=== PATIENT | male | born 1945 | race Caucasian/White ===

== ENCOUNTER 2016-08-24 16:04 | Emergency (ER) | payer OTHER ==
[~2016-08-24] VITALS: Ht 182.9 cm; Wt 79.0 kg
[~2016-08-24 16:04] MED LIST: ATOR10TA88 PO; GLIP1TAB85 PO; LISI20TA3 PO
[2016-08-24 16:11] VITALS: TEMP 36.6; Ht 182.9 cm; Wt 79.0 kg
--- NOTE | 2016-08-24 16:24 | EMERGENCY ROOM VISIT NOTE ---
History Report prepared by Kirill: Jose Daniel Venegas Under the Supervision of: Dr. Vikas Bernstein M.D. First contact with patient: 16:15 Chief Complaint: REFERRED BY DOCTOR Stated Complaint: HIGH POTASSIUM History of Present Illness The patient is a 70 year old male who presents to the Emergency Room after being referred for high potassium prior to arrival. The patient was getting blood-work for diabetes when his labs showed his potassium was 6. The patient denies any history of high potassium. He notes that right now he feels fine. The last time his sugar was checked, the patient notes that it was high. The patient also notes a bump on his chest that has some drainage. He had this area drained before, however, it came back. He denies nausea, vomiting, fevers, diarrhea, leg swelling, or any other medical complaints at this time. Source of History: patient Onset: prior to arrival Position: other (global) Associated Symptoms: No diarrhea, No fevers, No nausea, No vomiting Note: Associated symptoms: high sugar, bump with drainage on chest Denies: leg swelling Review of Systems See HPI for pertinent positives & negatives. A total of 10 systems reviewed and were otherwise negative. Past Medical & Surgical Medical Problems: (1) Benign hypertension (2) Cellulitis of leg (3) Diabetes mellitus type 2 Family History Diabetes mellitus Social History Smoking Status: Never Smoker Alcohol Use: none Drug Use: none Marital Status: Housing Status: lives alone Occupation Status: retired Current/Historical Medications Scheduled Aspirin Enteric Coated (Ecotrin Or Generic), 81 MG PO DAILY Atorvastatin (Lipitor), 10 MG PO DAILY Cephalexin Monohydrate (Keflex), 500 MG PO TID Gabapentin (Neurontin), 100 MG PO TID Glipizide Xl (Glucotrol Xl), 10 MG PO QAM Lisinopril (Prinivil), 20 MG PO DAILY Sulfamethoxazole-Trimethoprim (Bactrim Ds 800MG/160MG), 1 TAB PO BID Allergies Coded Allergies: No Known Allergies (Unverified , 08/24/16) Physical Exam Vital Signs Date Time Temp Pulse Resp B/P Pulse Ox O2 Delivery O2 Flow Rate FiO2 08/24/16 18:50 81 18 149/88 96 08/24/16 18:00 83 18 135/78 94 Room Air 08/24/16 16:11 36.6 94 20 113/68 96 Physical Exam GENERAL: Patient is chronically unwell appearing in no distress. HEENT: No acute trauma, normocephalic atraumatic, mucous membranes moist, no nasal congestion. Cloudy right cornea, reactive left pupil. NECK: No stridor, no adenopathy, no meningismus, trachea is midline. LUNGS: No dyspnea. Clear to auscultation and equal bilaterally. No wheeze, no rhonchi. CHEST: 2 cm draining cyst in right mid chest with surrounding erythema. HEART: Regular rate and rhythm. No murmurs, rubs, gallops appreciated. ABDOMEN: Soft, nontender, bowel sounds positive, no masses appreciated, no peritonitis. BACK: No midline tenderness, no CVA tenderness EXTREMITIES: Normal motion all extremities, no cyanosis, no edema. Decreased sensation in feet, states chronic. NEUROLOGIC: Alert and oriented, no acute motor or sensory deficits, no focal weakness, cranial nerves grossly intact. SKIN: No rash, no jaundice, no diaphoresis. Medical Decision & Procedures Laboratory Results Test 08/24/16 16:58 Bedside Hemoglobin 12.2 g/dl (14.0-18.0) Bedside Hematocrit 36 % (42-52) Bedside Sodium 140 mEq/L (135-144) Bedside Potassium 5.3 mEq/L (3.3-5.0) Bedside Chloride 104 mEq/L (101-112) Bedside Total CO2 24 mEq/l (24-31) Anion Gap 18.0 mmol/L (16-25) Bedside Blood Urea Nitrogen 30 mg/dl (7-18) Bedside Creatinine 1.6 mg/dl (0.6-1.3) Bedside Glucose (other) 164 mg/dl (70-99) Bedside Ionized Calcium (Maninder) 1.19 mmol/l (1.12-1.32) Laboratory results as reviewed by me. Medications Administered Medications (Trade) Dose Ordered Sig/Adlofo Route Start Time Stop Time Status Last Admin Dose Admin Cephalexin Monohydrate (Keflex Cap) 500 mg NOW ONCE PO 08/24/16 18:15 08/24/16 18:16 DC 08/24/16 18:32 500 MG ED Course 1620: The patient was evaluated in room C4. A complete history and physical exam was performed. 1630: Ordered Lidocaine/ Epinephrine 20 ml INFIL. 1727: At this time, I reevaluated the patient and he feels good. He agrees to recheck his potassium levels with his PCP in a few days. He is waiting to get his chest cyst drained and then he is ready to go home. 1801: At this time, Madi Awan PA-C - Emergency Medicine [place] performed an IND procedure on the patient. See his note for details. 1814: Ordered Cephalexin Monohydrate 500 mg PO. 1829: Reevaluated the patient. Discussed results and discharge instructions: He verbalized understanding and agreement. The patient is ready for discharge. Medical Decision Differential: Sepsis, Infectious (UTI/Pneumonia/Meningitis/etc), Metabolic/ Electrolyte Abnormality, Cardiac, Hepatic, Endocrine, Toxicologic, Neurologic, amongst other pathologies entertained. 70 yr old male arrives for evaluation of elevated K at outpatient lab. Bedside iStat has K of 5.3. He has no symptoms hyperK and Cr OK. I suspect that there is hemolysis going one. Patient feels well and wishes to go home. Seems reasonable to have recheck by PCP in next few days. Did have abscess on chest which was drained and as there is mild cellulitis will start Keflex while awaiting culture. No history of MRSA. He is in no distress and feels well. Discussed symptoms requiring RTED. Impression Primary Impression: Routine lab draw Additional Impression: Cutaneous abscess of chest wall Scribe Attestation The scribe's documentation has been prepared under my direction and personally reviewed by me in its entirety. I confirm that the note above accurately reflects all work, treatment, procedures, and medical decision making performed by me. Departure Information Dispostion Home / Self-Care Prescriptions Cephalexin Monohydrate (Keflex) 500 Mg Cap 500 MG PO TID for 5 Days, #15 CAP Prov: Vikas Bernstein M.D. 08/24/16 Referrals Ely Hernandez D.O. (PCP) Forms HOME CARE DOCUMENTATION FORM, IMPORTANT VISIT INFORMATION, WORK / SCHOOL INSTRUCTIONS Patient Instructions My [facility] Additional Instructions Please contact your Primary Provider to have a repeat Potassium check in the next few days. You potassium was OK today but you must have it rechecked. Return if chest pain, passing out, weakness or other concerns. Monitor wound for worsening infection. Return if fevers, redness, elevated blood sugars. Problem Qualifiers
[2016-08-24] MEDS ORDERED: LIDOCAINE/EPINEPHRINE 1% 20 ML VIAL INFIL ONE (16:30)
[2016-08-24] MEDS ORDERED: ASPI81TA21 PO (16:30)
--- NOTE | 2016-08-24 16:33 | EMERGENCY ROOM VISIT NOTE ---
ED Visit Note The patient has been thoroughly evaluated by Dr. Bernstein, who asked me to drain the potential abscess on the patient's anterior chest. Please refer to his documentation regarding the patient's visit. I examined the patient. Verbal consent was obtained to perform the procedure. After saline and Betadine cleansing and 1.5 mL of 1% buffered lidocaine with epinephrine anesthesia, the abscess was incised with a number 11 scalpel blade. A large amount of purulent material was released with more expressed by pressure. A swab was obtained for culture. The abscess cavity was further probed with blunt scissors and the deep pocket expressed. The area was cleaned with sterile saline and dressed with a bulky bandage. The patient tolerated the procedure well.
[2016-08-24] MEDS ORDERED: GABA-112 PO (16:37)
[2016-08-24] MEDS ORDERED: SULF800T23 PO (16:37)
[2016-08-24 17:16] LABS: ISTAT CREATININE 1.6 mg/dl (0.6-1.3); ISTAT HEMOGLOBIN 12.2 g/dl (14.0-18.0); ISTAT IONIZED CALCIUM 1.19 mmol/l (1.12-1.32)
[2016-08-24] MEDS ORDERED: CEPH500C PO (18:11)
[2016-08-24] MEDS ORDERED: CEPHALEXIN MONOHYDRATE 250 MG CAP PO ONE (18:15)
[2016-08-24 18:50] VITALS: BP 149/88; PULSE 81; O2SAT 96
[2017-02-08] MEDS ORDERED: MULT-506 PO (16:39)
[2017-02-08] MEDS ORDERED: LISI-461 PO (17:00)
== END 2016-08-24 18:51 | disposition home or self-care (01) ==
LOC: C.EDB 16:06 → C.EDC 18:51
DX: L02.213 Cutaneous abscess of chest wall (principal); L03.313 Cellulitis of chest wall; I10 Essential (primary) hypertension; E11.9 Type 2 diabetes mellitus without complications; Z83.3 Family history of diabetes mellitus; Z79.82 Long term (current) use of aspirin; Z79.899 Other long term (current) drug therapy

== ENCOUNTER 2017-03-14 12:12 | Inpatient (IN) | payer OTHER ==
[~2017-03-14] VITALS: Ht 182.9 cm; Wt 72.4 kg
[~2017-03-14 12:12] MED LIST changes: -ATROPINE SULFATE 0.1 MG/ML 5ML SYR IV PRN; -EpHEDrine SULFATE INJ 50 MG/ML AMP IV PRN; -EpINEphrine HCL INJ 1 MG/ML 5ML SYRINGE ONE; -EpINEphrine INJ 1MG/ML AMP 1 MG/ML AMP ONE; -FLM4 PO; -INSDGIPEN SC; -LACTATED RINGER'S 1000ML 500 ML IV SCH; -LIDOCAINE 3.5% OPH GEL PER APPLICATION CHARGE OPR SCH; -LIDOCAINE 4% OP SOLN DROP CHARGE OPR SCH; -LIDOCAINE HCL 1% MPF 2 ML VIAL ONE; -LISI-725 PO; -MIDAZOLAM HCL 1 MG/ML 2ML VIAL ONE; -POVIDONE-IODINE OP SOLN 30 ML BTL ONE; -PROPARACAINE 0.5% OP SOLN PER DROP CHARGE OPR SCH; -PRS5 PO
[2017-03-14] MEDS ORDERED: SODIUM CHLORIDE 0.9% 1000ML 1,000 ML IV STA (12:36)
[2017-03-14 14:04] LABS: BASO % 0.2 %; BASO ABS # 0.02 K/uL (0-0.2); COMPLETE YES; EOS % 0.6 %; HEMATOCRIT 33.1 % (42-52); IG% 0.2 %; LYMPH % 16.1 %; LYMPH ABS # 2.11 K/uL (1.2-3.4); MEAN CELL VOLUME 87.3 fL (80-100); MEAN CORPUSCULAR HEMOGLOBIN 28.8 pg (25-34); MEAN CORPUSCULAR HGB CONC 32.9 g/dl (32-36); MEAN PLATELET VOLUME 10.8 fL (7.4-10.4); MONO % 4.7 %; NEUT % 78.2 %; PLATELET COUNT 196 K/uL (130-400); RED BLOOD COUNT 3.79 M/uL (4.7-6.1); WHITE BLOOD COUNT 13.08 K/uL (4.8-10.8)
[2017-03-14] MEDS ORDERED: NovoLIN-R INSULIN PER UNIT CHARGE SC STA (14:07)
[2017-03-14 14:10] LABS: VEN BLD GAS O2 SATURATION 60.5 %; VEN BLOOD GAS BASE EXCESS 0.1 mEq/L
[2017-03-14 14:33] LABS: BUN/CREATININE RATIO 18.6 (10-20); CALCIUM 9.1 mg/dl (8.5-10.1)
[2017-03-14 14:51] LABS: BETA-HYDROXYBUTYRATE 4.08 mg/dL (0.2-2.81)
[2017-03-14] MEDS ORDERED: INSULIN ASPART 100 UNITS/ML 3 ML PEN SC SCH ×2 (16:00→18:36)
[2017-03-14] MEDS ORDERED: PHARMACY GLYCEMIC MGMT CONSULT PRN (16:00)
[2017-03-14] MEDS ORDERED: INSULIN IV INFUSION PROTOCOL STA (16:07)
[2017-03-14] MEDS ORDERED: ACETAMINOPHEN 325 MG TAB PO PRN (16:15)
[2017-03-14] MEDS ORDERED: PENDING NSS+20mEq KCL IVF SCH (16:15)
[2017-03-14] MEDS ORDERED: MODERATE STRESS LEVEL ONE (16:15)
[2017-03-14] MEDS ORDERED: INSULIN PROTOCOL GOAL RANGE ONE (16:15)
[2017-03-14] MEDS ORDERED: ONDANSETRON INJ 2 MG/ML 2 ML VIAL IV PRN (16:15)
[2017-03-14] MEDS ORDERED: LISI-725 PO (16:17)
[2017-03-14] MEDS ORDERED: GLUCOSE 10 TABS/TUBE PO PRN (16:30)
[2017-03-14] MEDS ORDERED: DEXTROSE 50% 50 ML SYR IV PRN (16:30)
[2017-03-14] MEDS ORDERED: GLUCOSE 40% GEL 15 GM TUBE PO PRN (16:30)
[2017-03-14] MEDS ORDERED: INSULIN REGULAR 250 UNITS in SODIUM CHLORIDE 0.9% 250ML 250 ML IV SCH (16:30)
[2017-03-14] MEDS ORDERED: GLUCAGON FOR INJ 1 MG VIAL SQ PRN (16:30)
[2017-03-14] MEDS ORDERED: INSULIN HUMAN REGULAR IV BOLUS 2 UNIT in SYRINGE 0 ML IV SCH (16:30)
[2017-03-14 16:33] LABS: URINE APPEARANCE CLEAR (CLEAR); URINE BILIRUBIN NEG (NEG); URINE COLOR YELLOW; URINE NITRITE NEG (NEG); URINE SPECIFIC GRAVITY 1.034 (1.000-1.030); UROBILINOGEN NEG (NEG); ZZUR CULT IF INDIC CLEAN CATCH NO
[2017-03-14 16:34] LABS: MANUAL MICROSCOPIC REQUIRED? NO; REVIEW REQ? NO
[2017-03-14 16:50] LABS: MAGNESIUM 2.6 mg/dl (1.8-2.4); PHOSPHORUS 3.6 mg/dl (2.5-4.9)
--- NOTE | 2017-03-14 16:55 | DIAGNOSTIC IMAGING REPORT ---
CHEST 2 VIEWS ROUTINE CLINICAL HISTORY: cough, hypoxia dyspnea COMPARISON STUDY: 04/03/2013 FINDINGS: Mild chronic interstitial prominence. No focal infiltrate. Diaphragms smooth. Calcific angles are sharp. No evidence for cardiac enlargement. IMPRESSION: Mild chronic change. No acute process. The above report was generated using voice recognition software. It may contain grammatical, syntax or spelling errors. Electronically signed by: Taz Rios M.D. 03/14/2017 4:54 PM Dictated Date/Time: 03/14/2017 4:53 PM
--- NOTE | 2017-03-14 17:09 | History and Physical ---
History & Physical Date & Time of Service: Mar 14, 2017 at 16:19 Chief Complaint: hyperglycemia Primary Care Physician: Ely Hernandez D.O. History of Present Illness Source: patient, clinic records This is a 71 year old male with PMH of DM type 2, HTN, dyslipidemia, CKD stage III, and other problems listed below who was sent to the ED from [facility] for hyperglycemia. BSG was in 500s CONE FORMER at [facility], where he was supposed to have eye biopsy. Pt has not checked home BSG for several months. Patient was living alone, but has been staying with a friend for past 3 days. Has not taken glipizide since 3 days ago as he left it at home. Friend at bedside states he was eating (indiscretion with cookies, candy) at her home up until yesterday. Did not eat/ drink today due to being NPO for procedure. Pt reports nonproductive cough with nasal congestion and rhinorrhea x 1 week. Pt has been unable to void today- last voided yesterday evening. Ambulates with a cane. He fell out of bed overnight- denies any injury, head trauma, LOC. Chronic bilateral decreased vision is unchanged. Denies recent fever or chills. Denies headache, sinus pain, ear ache, sore throat, tooth ache, chest pain, SOB , abdominal pain, N/V/D, dysuria, frequency, rash, open wound. The friend he is staying with has been ill with fever, vomiting, diarrhea. Pt's friend has concern about patient's ability to care for himself, and she is unable to care for him upon discharge. Patient's blood sugar was in 500s in ED. Received 10 units of regular insulin SC and BSG 1 hour later was 490. Per ROLLER MAKER, patient was placed on oxygen 2 liters NC while she was on break, then when she removed the O2, patient was hypoxic to high 80's. Now saturating well on 2 liters NC. No home O2 use. Denies hx of lung disease. Past Medical/Surgical History Medical Problems: (1) Benign hypertension Status: Chronic (2) Cellulitis of leg Status: Resolved (3) CKD (chronic kidney disease), stage III Status: Chronic (4) Diabetes mellitus type 2 Status: Chronic (5) GERD (gastroesophageal reflux disease) Status: Chronic (6) Hyperlipidemia Status: Chronic Surgical Problems: (1) H/O skin graft Status: Chronic (2) S/P tonsillectomy Status: Chronic Family History Diabetes mellitus SISTER Hypertension MOTHER Social History Smoking Status: Never Smoker Alcohol Use: none (denies alcohol use. of note, alcohol abuse is listed in outpatient records. ) Drug Use: none Marital Status: Housing status: lives alone (staying with friend past few days) Occupational Status: retired Immunizations History of Influenza Vaccine: Yes Influenza Vaccine Date: Mar 22, 2012 History of Tetanus Vaccine?: Unknown History of Pneumococcal: Yes Pneumococcal Date: Apr 02, 2012 History of Hepatitis B Vaccine: No Multi-Drug Resistant Organisms History of MDRO: No Allergies Coded Allergies: No Known Allergies (Unverified , 03/14/17) Home Medications Scheduled Aspirin Enteric Coated (Ecotrin Or Generic), 81 MG PO QAM Atorvastatin (Lipitor), 10 MG PO DAILY Gabapentin (Neurontin), 100 MG PO DAILY Glipizide Xl (Glucotrol Xl), 10 MG PO QAM Lisinopril (Zestril), 20 MG PO DAILY Review of Systems Ten systems reviewed and negative except as noted in HPI. Physical Exam Vital Signs Date Time Temp Pulse Resp B/P (MAP) Pulse Ox O2 Delivery O2 Flow Rate FiO2 03/14/17 16:11 89 18 134/83 98 2.0 03/14/17 14:15 95 16 133/77 90 03/14/17 12:38 81 03/14/17 12:22 36.7 90 16 134/81 99 General Appearance: WD/WN, no apparent distress Head: normocephalic, atraumatic Eyes: + pertinent finding (right cornea appears opaque, left pupil reactive to light) ENT: hearing grossly normal, TMs normal, pharynx normal, + pertinent finding ( almost edentulous, existing few teeth are in poor condition but no abscesses seen, no gum or tooth tenderness to palpation) Neck: supple, trachea midline Respiratory/Chest: lungs clear, normal breath sounds, no respiratory distress, no accessory muscle use, + pertinent finding (saturating well on 2 liters NC) Cardiovascular: regular rate, rhythm, no murmur Abdomen/GI: normal bowel sounds, non tender, soft Extremities/Musculoskelatal: no calf tenderness, no pedal edema, + pertinent finding (medial right chronic bony deformity. toenails are in poor repair, especially right 1st and 2nd digit. right 2nd toe mild erythema of entire toe, no swelling or tenderness.) Neurologic/Psych: alert, normal mood/affect, oriented x 3, + pertinent finding (sensation to light touch intact on bilateral feet) Skin: normal color, warm/dry Diagnostics Laboratory Results Results Past 24 Hours Test 03/14/17 12:23 03/14/17 13:45 03/14/17 13:53 03/14/17 15:18 Range/Units Bedside Glucose 576 491 70-99 mg/dl White Blood Count 13.08 4.8-10.8 K/uL Red Blood Count 3.79 4.7-6.1 M/uL Hemoglobin 10.9 14.0-18.0 g/dL Hematocrit 33.1 42-52 % Mean Corpuscular Volume 87.3 80-100 fL Mean Corpuscular Hemoglobin 28.8 25-34 pg Mean Corpuscular Hemoglobin Concent 32.9 32-36 g/dl Platelet Count 196 130-400 K/uL Mean Platelet Volume 10.8 7.4-10.4 fL Neutrophils (%) (Auto) 78.2 % Lymphocytes (%) (Auto) 16.1 % Monocytes (%) (Auto) 4.7 % Eosinophils (%) (Auto) 0.6 % Basophils (%) (Auto) 0.2 % Neutrophils # (Auto) 10.23 1.4-6.5 K/uL Lymphocytes # (Auto) 2.11 1.2-3.4 K/uL Monocytes # (Auto) 0.61 0.11-0.59 K/uL Eosinophils # (Auto) 0.08 0-0.5 K/uL Basophils # (Auto) 0.02 0-0.2 K/uL RDW Standard Deviation 42.5 36.4-46.3 fL RDW Coefficient of Variation 13.2 11.5-14.5 % Immature Granulocyte % (Auto) 0.2 % Immature Granulocyte # (Auto) 0.03 0.00-0.02 K/uL Venous Blood pH 7.38 7.36-7.41 Venous Blood Partial Pressure CO2 44 38.0-50.0 mmHg Venous Blood Partial Pressure O2 32 mmHg Venous Blood HCO3 25 mmol/L Venous Blood Oxygen Saturation 60.5 % Venous Blood Base Excess 0.1 mEq/L Sodium Level 133 136-145 mmol/L Potassium Level 5.0 3.5-5.1 mmol/L Chloride Level 101 98-107 mmol/L Carbon Dioxide Level 25 21-32 mmol/L Anion Gap 7.0 3-11 mmol/L Blood Urea Nitrogen 37 7-18 mg/dl Creatinine 2.00 0.60-1.40 mg/dl Est Creatinine Clear Calc Drug Dose 35.5 ml/min Estimated GFR () 37.8 Estimated GFR (Non- 32.6 BUN/Creatinine Ratio 18.6 10-20 Random Glucose 542 70-99 mg/dl Calcium Level 9.1 8.5-10.1 mg/dl Total Bilirubin 0.5 0.2-1 mg/dl Direct Bilirubin 0.2 0-0.2 mg/dl Aspartate Amino Transf (AST/SGOT) 9 15-37 U/L Alanine Aminotransferase (ALT/SGPT) 18 12-78 U/L Alkaline Phosphatase 63 45-117 U/L Total Protein 7.0 6.4-8.2 gm/dl Albumin 3.8 3.4-5.0 gm/dl Lipase 198 73-393 U/L Beta-Hydroxybutyric Acid 4.08 0.2-2.81 mg/dL Test 03/14/17 16:04 03/14/17 16:06 Range/Units EKG NSR, 84 bpm, no ST or T wave abnormality Impression Assessment and Plan HYPERGLYCEMIA In setting of DM type 2, uncontrolled per last A1c (9.6 in 08/2016) Likely secondary to medication non-compliance, dietary indiscretion, rule out infection- afebrile, +mild leukocytosis (WBC 13K) f/u CXR and UA AG normal, not in DKA Hold glipizide Start insulin drip and monitor electrolytes Consult pharmacy for glycemic control Check A1c unit educator consult, also recommend podiatry referral as outpatient HYPOXIA Was placed on O2 nasal cannula in ER, was hypoxic to high 80's upon removal by ROLLER MAKER Not on home O2- check CXR to r/o PNA given leukocytosis and c/o cough Continue supplemental O2 per protocol AXEL ON CKD STAGE III Creat is 2.0, baseline 1.2 Possibly secondary to dehydration; denies NSAID use Hold lisinopril Received 1 liter IVF's in ER- continue at 125 cc/hour Monitor renal function Avoid nephrotoxins when able URINARY RETENTION Unable to void today, bladder scan + urinary retention in ER- 1450 mL output on straight cath UA pending Bladder scan and straight cath PRN CHRONIC ANEMIA Hg is 10.9, was 11's back in 2013 Follow up as outpatient DYSLIPIDEMIA Continue statin DVT PROPHYLAXIS Heparin SQ CODE STATUS Full code per my discussion with the patient DISPOSITION Admission telemetry May need placement, lives alone, friend concerned he is unable to care for himself at home, and she is unable to care for him after discharge PT, OT, social service evaluation Follows with Dr. Ely Hernandez for primary care Patient seen in collaboration with Dr. Arevalo. Please see his addendum. VTE Prophylaxis VTE Risk Assessment Done? Y/N: Yes Risk Level: Moderate Note ATTENDING ADDENDUM Record reviewed. Patient interviewed and examined in ED. Care coordinated with Valentine Silvestre PA-C. Please refer to her documentation for patient's history. Briefly, 71 YO male with history of DM type 2, managed with glipizide. Has not take his glipizide for a few days. Had outpatient eye surgery planned for today; found to have blood sugar > 500 and was referred to ED. Pt notes blurred vision. Denies polyuria or polydipsia. EXAM: General- appears to be chronically ill, no acute distress VS- as noted HEENT- anicteric Neck- no JVD Lungs- clear Heart- RRR, II/ sys murmur at base Abdomen- + BS, soft, nontender, no masses or hepatosplenomegaly Rectal- prostate enlarged, nontender; no masses appreciated Extremities- no pretibial edema or calf tenderness; pedal pulses intact; no diabetic foot lesions Neuro- alert DATA: Random blood sugar 576. BUN 37, creat 2.0. Na 133. K 530. AG 7.0. BHG 4.08 UA 3+ glucose, otherwise negative. Other lab studies as noted. CXR reviewed- emphysematous changes, no infiltrates, effusions, CHF. EKG performed at 12:22 reviewed and demonstrated NSR at 84 / minute, no acute ST or T-wave changes.. ASSESSMENT AND PLAN: DM TYPE 2, POORLY CONTROLLED Sounds like chronic problems with glycemic management. Has not taken glipizide for past few days. Has tried metformin in the past, but apparently unable to take it. Not a candidate for insulin therapy. Started on insulin infusion in ED. Check Hgb A1C. Pharmacy consulted for glycemic management. ACUTE KIDNEY INJURY Serum creatinine 2, compared to 1.26 in 2015. Acute kidney injury could be secondary to hyperglycemia or obstructive uropathy. Hold lisinopril, then restart at reduced dose with caution if creatinine improves. Check renal US. URINARY RETENTION Patient reports that he typically only voids 1-3 times a day. Bladder scan in ED revealed bladder volume > 999 ml. Straight cath --> 1400 ml. Denies urgency, frequency, nocturia, dysuria, hematuria. Rectal exam reveals enlarged prostate. Straight cath PRN. Start tamsulosin if BP's OK. Consult Urology. Please refer to MITZY Silvestre's documentation for discussion of other issues. Cesar Arevalo MD .
--- NOTE | 2017-03-14 18:25 | EMERGENCY ROOM VISIT NOTE ---
History Report prepared by Kirill: Levy Underwood Under the Supervision of: Dr. Theo Haq D.O. 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 His blood sugar was 586 prior to arrival. The patient was supposed to have a biopsy of his right eye at the surgical center, when they noticed his blood sugar was elevated. They sent him here. He has been taking his blood sugar medication. His last bowel movement was 10 minutes ago and was normal. Pt denies headache, change in vision, fevers , chest pain, shortness of breath, nausea, vomiting, diarrhea, pain with urination, and melena. 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 Review of Systems See HPI for pertinent positives & negatives. A total of 10 systems reviewed and were otherwise negative. Past Medical & Surgical Medical Problems: (1) AXEL (acute kidney injury) (2) Benign hypertension (3) Cellulitis of leg (4) CKD (chronic kidney disease), stage III (5) Diabetes mellitus type 2 (6) GERD (gastroesophageal reflux disease) (7) Hyperlipidemia Surgical Problems: (1) H/O skin graft (2) S/P tonsillectomy Family History Diabetes mellitus Social History Smoking Status: Never Smoker Alcohol Use: none Drug Use: none Marital Status: Housing Status: lives alone Occupation Status: retired Current/Historical Medications Scheduled Aspirin Enteric Coated (Ecotrin Or Generic), 81 MG PO QAM Atorvastatin (Lipitor), 10 MG PO DAILY Gabapentin (Neurontin), 100 MG PO DAILY Glipizide Xl (Glucotrol Xl), 10 MG PO QAM Lisinopril (Zestril), 20 MG PO DAILY Allergies Coded Allergies: No Known Allergies (Unverified , 03/14/17) Physical Exam Vital Signs Date Time Temp Pulse Resp B/P (MAP) Pulse Ox O2 Delivery O2 Flow Rate FiO2 03/14/17 17:12 84 16 97/64 98 03/14/17 16:11 89 18 134/83 98 2.0 03/14/17 14:15 95 16 133/77 90 03/14/17 12:38 81 03/14/17 12:22 36.7 90 16 134/81 99 Physical Exam GENERAL: alert, sitting up in bed, chronically ill appearing, disheveled, well nourished, no distress, non-toxic EYE EXAM: Right pupil and cornea are opacified. OROPHARYNX: no exudate, no erythema, lips, buccal mucosa, and tongue normal and mucous membranes are moist NECK: supple, no nuchal rigidity, no adenopathy, non-tender LUNGS: Clear to auscultation. Normal chest wall mechanics HEART: no murmurs, S1 normal and S2 normal ABDOMEN: abdomen soft, non-tender, normo-active bowel sounds, no masses, no rebound or guarding. BACK: Back is symmetrical on inspection and there is no deformity, no midline tenderness, no CVA tenderness. SKIN: no rashes and no bruising UPPER EXTREMITIES: upper extremities are grossly normal. LOWER EXTREMITIES: No pitting edema. NEURO EXAM: Normal sensorium, cranial nerves II-XII grossly intact, normal speech, no gross weakness of arms, no gross weakness of legs. Medical Decision & Procedures Laboratory Results 03/14/17 13:45 Red Blood Count 3.79, Mean Corpuscular Volume 87.3, Mean Corpuscular Hemoglobin 28.8, Mean Corpuscular Hemoglobin Concent 32.9, Mean Platelet Volume 10.8, Neutrophils (%) (Auto) 78.2, Lymphocytes (%) (Auto) 16.1, Monocytes (%) (Auto) 4.7, Eosinophils (%) (Auto) 0.6, Basophils (%) (Auto) 0.2, Neutrophils # (Auto) 10.23, Lymphocytes # (Auto) 2.11, Monocytes # (Auto) 0.61, Eosinophils # (Auto) 0.08, Basophils # (Auto) 0.02 9/11/17 13:53 Test 03/14/17 13:45 03/14/17 13:53 03/14/17 16:06 03/14/17 17:42 White Blood Count 13.08 K/uL (4.8-10.8) Red Blood Count 3.79 M/uL (4.7-6.1) Hemoglobin 10.9 g/dL (14.0-18.0) Hematocrit 33.1 % (42-52) Mean Corpuscular Volume 87.3 fL (80-100) Mean Corpuscular Hemoglobin 28.8 pg (25-34) Mean Corpuscular Hemoglobin Concent 32.9 g/dl (32-36) Platelet Count 196 K/uL (130-400) Mean Platelet Volume 10.8 fL (7.4-10.4) Neutrophils (%) (Auto) 78.2 % Lymphocytes (%) (Auto) 16.1 % Monocytes (%) (Auto) 4.7 % Eosinophils (%) (Auto) 0.6 % Basophils (%) (Auto) 0.2 % Neutrophils # (Auto) 10.23 K/uL (1.4-6.5) Lymphocytes # (Auto) 2.11 K/uL (1.2-3.4) Monocytes # (Auto) 0.61 K/uL (0.11-0.59) Eosinophils # (Auto) 0.08 K/uL (0-0.5) Basophils # (Auto) 0.02 K/uL (0-0.2) RDW Standard Deviation 42.5 fL (36.4-46.3) RDW Coefficient of Variation 13.2 % (11.5-14.5) Immature Granulocyte % (Auto) 0.2 % Immature Granulocyte # (Auto) 0.03 K/uL (0.00-0.02) Venous Blood pH 7.38 (7.36-7.41) Venous Blood Partial Pressure CO2 44 mmHg (38.0-50.0) Venous Blood Partial Pressure O2 32 mmHg Venous Blood HCO3 25 mmol/L Venous Blood Oxygen Saturation 60.5 % Venous Blood Base Excess 0.1 mEq/L Anion Gap 7.0 mmol/L (3-11) Est Creatinine Clear Calc Drug Dose 35.5 ml/min Estimated GFR () 37.8 Estimated GFR (Non- 32.6 BUN/Creatinine Ratio 18.6 (10-20) Calcium Level 9.1 mg/dl (8.5-10.1) Phosphorus Level 3.6 mg/dl (2.5-4.9) Magnesium Level 2.6 mg/dl (1.8-2.4) Total Bilirubin 0.5 mg/dl (0.2-1) Direct Bilirubin 0.2 mg/dl (0-0.2) Aspartate Amino Transf (AST/SGOT) 9 U/L (15-37) Alanine Aminotransferase (ALT/SGPT) 18 U/L (12-78) Alkaline Phosphatase 63 U/L (45-117) Total Protein 7.0 gm/dl (6.4-8.2) Albumin 3.8 gm/dl (3.4-5.0) Lipase 198 U/L (73-393) Beta-Hydroxybutyric Acid 4.08 mg/dL (0.2-2.81) Urine Color YELLOW Urine Appearance CLEAR (CLEAR) Urine pH 5.0 (4.5-7.5) Urine Specific [place] 1.034 (1.000-1.030) Urine Protein NEG (NEG) Urine Glucose (UA) 3+ (NEG) Urine Ketones NEG (NEG) Urine Occult Blood NEG (NEG) Urine Nitrite NEG (NEG) Urine Bilirubin NEG (NEG) Urine Urobilinogen NEG (NEG) Urine Leukocyte Esterase NEG (NEG) Bedside Glucose 224 mg/dl (70-99) Laboratory results per my review. Medications Administered Medications (Trade) Dose Ordered Sig/Adolfo Route Start Time Stop Time Status Last Admin Dose Admin Sodium Chloride 1,000 ml @ 999 mls/hr Q1H1M STAT IV 03/14/17 12:36 03/14/17 13:36 DC 03/14/17 12:50 999 MLS/HR Insulin Human Regular (novoLIN-R U-100 PER UNIT) 10 units NOW STAT SC 03/14/17 14:07 03/14/17 14:08 DC 03/14/17 14:15 10 UNITS Insulin Human Regular 2 unit/ Syringe 2 ml @ 1 mls/min TODAY@1630 IV 03/14/17 16:30 03/14/17 16:31 DC 03/14/17 17:26 1 MLS/MIN Insulin Human Regular 250 units/ Sodium Chloride 252.5 ml @ 0 mls/hr DAILY@1130 IV 03/14/17 16:30 04/13/17 16:29 03/14/17 17:24 1.8 MLS/HR ECG Indication: other (Hyperglycemia) Rate (beats per minute): 84 Rhythm: sinus rhythm Findings: no ectopy, other (Normal axis) ED Course ED COURSE: Vital signs were reviewed and showed hypertension. The patients medical record was reviewed The above diagnostic studies were performed and reviewed. ED treatments and interventions as stated above. 1235: The patient was evaluated in room C5. A complete history and physical examination was performed. 1236: Ordered Sodium Chloride 1000 ml @ 999 mls/hr IV 1406: I talked with the patient's family, and his ex- cannot take care of him at her home anymore. 1407: Ordered Insulin Human Regular 10 units SC 1505: Upon reevaluation, the patient is resting. I discussed my findings with the patient and he understands and agrees with the treatment plan. Based on the patients age, coexisting illnesses, exam and lab findings the decision to treat as an inpatient was made. I spoke with Terri Silvestre PA-C of [facility]. She will be evaluating the patient further. The patient remained stable while under my care. The patient will be evaluated for further management. Medical Decision Differential Diagnosis includes but is not limited to dehydration, stroke, anemia, hypoglycemia, hyponatremia, hypernatremia, urinary tract infection, pneumonia, bronchitis, sepsis, gastroenteritis, additional abdominal pathology, metabolic abnormalities and infections. Patient is a 71-year-old male that presents to ER from the surgery clinic for a BSG of 580. He has been unable to take care of himself at home and constantly has moved in with his ex- in her current . Ex- is unable to care for him any longer. Patient is not taking his medications. Patient denies any other complaints. Labs show a mild leukocytosis. No anion gap. Creatinine Selvidge Yahaira Salazar of the baseline of 1. BSG of 570. PH was normal. No ketones. Patient was given 10 units of subcutaneous insulin. He was given 1 L normal saline. Discussed case with family him the patient and I feel he'll better served as an inpatient for his hyperglycemia and AXEL. He will likely need placement following admission. Medication Reconcilliation Current Medication List: was personally reviewed by me Blood Pressure Screening Patient's blood pressure: Elevated blood pressure Blood pressure disposition: Elevated BP felt to be situational Consults Time Called: 1500 Consulting Physician: Terri Karimi Returned Call: 1505 I reviewed the patient's case with her. She will evaluate the patient for further management. Impression Primary Impression: Hyperglycemia Additional Impression: AXEL (acute kidney injury) Scribe Attestation The scribe's documentation has been prepared under my direction and personally reviewed by me in its entirety. I confirm that the note above accurately reflects all work, treatment, procedures, and medical decision making performed by me. Departure Information Dispostion Being Evaluated By Hospitalist Referrals Ely Hernandez D.O. (PCP) Patient Instructions My [facility] Problem Qualifiers
[2017-03-14 19:25] LABS: INR 0.9 (0.9-1.1); PARTIAL THROMBOPLASTIN RATIO 0.9; PROTHROMBIN TIME (PATIENT) 9.8 SECONDS (9.0-12.0)
[2017-03-14] MEDS: SODIUM CHLORIDE 0.9% 1000ML 1,000 ML IV SCH (19:34)
[2017-03-14 20:44] LABS: CALCIUM 8.8 mg/dl (8.5-10.1); CREATININE 1.8 mg/dl (0.60-1.40); MAGNESIUM 2.6 mg/dl (1.8-2.4); PHOSPHORUS 3.2 mg/dl (2.5-4.9)
[2017-03-14 20:45] LABS: POTASSIUM 3.9 mmol/L (3.5-5.1)
[2017-03-14] MEDS: INSULIN ASPART 100 UNITS/ML 3 ML PEN SC SCH (21:52)
[2017-03-14] MEDS: HEPARIN SOD 5000 UNIT/0.5 ML CARP SQ SCH (21:53)
[2017-03-14 22:02] VITALS: BP 104/70; PULSE 82; TEMP 36.6; O2SAT 98
[2017-03-14] MEDS ORDERED: PNEUMOCOCCAL POLYSACCHARIDES 25 MCG/0.5 ML VIAL/SYR IM. ONE (23:30)
[2017-03-14] MEDS ORDERED: PNEUMOCOCCAL ADMINISTRATION CHARGE ONE (23:30)
[2017-03-14 23:52] VITALS: BP 113/73; PULSE 85; TEMP 36.6; O2SAT 94
[2017-03-15] VITALS (7 sets, daily range): BP systolic 116–144; BP diastolic 61–88; PULSE 84–105; TEMP 36.5–37.2; O2SAT 96–99; BMI 22.1
[2017-03-15] MEDS ORDERED: INSULIN ASPART 100 UNITS/ML 3 ML PEN SC SCH (02:00)
[2017-03-15] MEDS: SODIUM CHLORIDE 0.9% 1000ML 1,000 ML IV SCH (02:11)
[2017-03-15] MEDS: HEPARIN SOD 5000 UNIT/0.5 ML CARP SQ SCH ×3 (06:00→20:33)
[2017-03-15 06:29] LABS: ESTIMATED AVERAGE GLUCOSE 384 mg/dl; HA1C FLAG Normal (Normal)
[2017-03-15 06:38] LABS: BUN/CREATININE RATIO 22.8 (10-20); CREATININE 1.4 mg/dl (0.60-1.40); MAGNESIUM 2.5 mg/dl (1.8-2.4); PHOSPHORUS 2.4 mg/dl (2.5-4.9); POTASSIUM 4.8 mmol/L (3.5-5.1)
[2017-03-15] MEDS: ASPIRIN 81 MG ECTAB PO SCH (07:57)
[2017-03-15] MEDS: ATORVASTATIN 10 MG TAB PO SCH (07:57)
[2017-03-15] MEDS: GABAPENTIN 100 MG CAP PO SCH (07:57)
[2017-03-15] MEDS: INSULIN ASPART 100 UNITS/ML 3 ML PEN SC SCH ×4 (08:03→20:29)
--- NOTE | 2017-03-15 08:42 | DIAGNOSTIC IMAGING REPORT ---
(RENAL)RETROPERITON COMP HISTORY: Renal insufficiency urinary retention, acute kidney injury COMPARISON: None. FINDINGS: Right kidney: Maximum dimension 10.1 cm. No evidence for hydronephrosis. Normal corticomedullary differentiation and cortical thickness. Left kidney: Maximum dimension 9.1 cm. No evidence for hydronephrosis. Normal corticomedullary differentiation and cortical thickness. Bladder: No bladder wall thickening. The bilateral ureteral jets were identified. IMPRESSION: Normal renal ultrasound. The above report was generated using voice recognition software. It may contain grammatical, syntax or spelling errors. Electronically signed by: Taz Rios M.D. 03/15/2017 8:41 AM Dictated Date/Time: 03/15/2017 8:40 AM
[2017-03-15] MEDS ORDERED: TAMSULOSIN HCL 0.4 MG CAP PO SCH (09:00)
[2017-03-15] MEDS ORDERED: INSULIN GLARGINE SOLOSTAR 100 UNITS/ML 3 ML PEN SC ONE (10:15)
--- NOTE | 2017-03-15 10:16 | Pharmacy Progress Note ---
Glycemic Control Intl Consult Date of Service Mar 15, 2017. Scope Glycemic Pharmacist consulted by Valentine Silvestre PA-C on 03/14/17 for glycemic control and to write orders per [facility] inpatient glycemic control protocol Objective Weight (Kilograms): 74.000 Accuchecks BSG (last 24hrs): Test 03/14/17 12:23 03/14/17 13:53 03/14/17 15:18 03/14/17 16:17 Bedside Glucose 576 mg/dl (70-99) 491 mg/dl (70-99) 404 mg/dl (70-99) Random Glucose 542 mg/dl (70-99) Test 03/14/17 17:16 03/14/17 17:42 03/14/17 17:51 03/14/17 18:41 Bedside Glucose 284 mg/dl (70-99) 224 mg/dl (70-99) 228 mg/dl (70-99) 119 mg/dl (70-99) Test 03/14/17 18:56 03/14/17 19:08 03/14/17 19:25 03/14/17 19:43 Bedside Glucose 108 mg/dl (70-99) 81 mg/dl (70-99) 68 mg/dl (70-99) 72 mg/dl (70-99) Test 03/14/17 20:03 03/14/17 20:13 03/14/17 21:43 03/15/17 01:50 Random Glucose 117 mg/dl (70-99) Bedside Glucose 192 mg/dl (70-99) 210 mg/dl (70-99) 230 mg/dl (70-99) Test 03/15/17 05:37 Random Glucose 211 mg/dl (70-99) Laboratory Data (last 24hrs) Test 03/14/17 13:45 03/14/17 13:53 03/14/17 20:03 03/15/17 05:37 White Blood Count 13.08 K/uL Red Blood Count 3.79 M/uL Hemoglobin 10.9 g/dL Hematocrit 33.1 % Mean Corpuscular Volume 87.3 fL Mean Corpuscular Hemoglobin 28.8 pg Mean Corpuscular Hemoglobin Concent 32.9 g/dl Platelet Count 196 K/uL Mean Platelet Volume 10.8 fL Neutrophils (%) (Auto) 78.2 % Lymphocytes (%) (Auto) 16.1 % Monocytes (%) (Auto) 4.7 % Eosinophils (%) (Auto) 0.6 % Basophils (%) (Auto) 0.2 % Neutrophils # (Auto) 10.23 K/uL Lymphocytes # (Auto) 2.11 K/uL Monocytes # (Auto) 0.61 K/uL Eosinophils # (Auto) 0.08 K/uL Basophils # (Auto) 0.02 K/uL Anion Gap 7.0 mmol/L 5.0 mmol/L 5.0 mmol/L BUN/Creatinine Ratio 18.6 20.0 22.8 Blood Urea Nitrogen 37 mg/dl 36 mg/dl 32 mg/dl Creatinine 2.00 mg/dl 1.80 mg/dl 1.40 mg/dl Potassium Level 5.0 mmol/L 3.9 mmol/L 4.8 mmol/L Sodium Level 133 mmol/L 141 mmol/L 141 mmol/L Hemoglobin A1c 15.0 % HbA1c Test 03/15/17 05:37 Hemoglobin A1c 15.0 % (4.5-5.6) H Recent Pertinent Medications Outpatient Anti-diabetic Regimen: * Glipizide XL 10 mg daily (has not been taking for the past few days) The patient is currently receiving: * Basal insulin: no basal currently * Correctional Insulin: Novolog Correction per scale ACHS Goal Range: Low 120 mg/dL - High 160 mg/dL Correction Factor: 25 mg/dL/unit * Prandial insulin: Per carb ratio of 1 unit per 12 grams CHO consumed Risk Factors for Insulin Resistance: * Diet: type 2 diabetic diet Assessment & Plan ASSESSMENT: * ADA & AACE recommend a goal blood sugar range 140-180 mg/dl for the majority of critically ill & non-critically ill patients. However, more stringent targets may be selected in individual cases. * Mr Vang is a 71 y/o M with a PMH of HTN, cellulitis, and CKD stage 3 who was seen at the surgery center for an eye biopsy. The patient's blood sugar was over 500 mg/dL, and he was sent to the emergency room. Patient has not been taking his oral glipizide for several days because he forgot it at home. Patient was initially started on an insulin infusion; his blood sugars decreased from 491 mg/dL to 68 mg/dL rapidly indicating the patient may have insulin sensitivity. Overnight patient received 5 units of Novolog with no change in blood sugars. * For this morning's fasting blood sugar of 211 mg/dL, will start Lantus weight- based stress of 2 dose (which is 0.2 units/kg). Will initiate a scale for this evening as there is uncertainty as to how the patient will react. Correctional insulin will be tightened slightly. PLAN FOR INPATIENT GLYCEMIC CONTROL: * Basal insulin with LANTUS 15 units SQ x 1 then Lantus 0-15 units BID (Lantus 0 units if blood sugar less than 120 mg/dL; Lantus 10 units if blood sugar 120- 160 mg/dL; Lantus 15 units if blood sugar greater than 160 mg/L) * Correctional Insulin with NOVOLOG per scale ACHS or Q6hrs while NPO * Goal Range: Low 140 mg/dL - High 180 mg/dL * Correction Factor: 25 mg/dL/unit * Nutritional / Prandial insulin per carb ratio of 1 unit per 8 grams CHO consumed * Please note that the plan above was derived based on current level of insulin resistance and hospital stress. These recommendations are appropriate for inpatient admission only. Plan of care upon discharge will need to be reassessed to avoid potential outpatient hypo/hyperglycemia. Thank you.
[2017-03-15] MEDS ORDERED: NURSING DECISION MEDICATION ORDER SCH (14:00)
[2017-03-15] MEDS ORDERED: LIDOCAINE HCL 2% JELLY 30 ML TUBE EXT ONE (14:03)
[2017-03-15] MEDS ORDERED: LIDOCAINE HCL 2% JELLY 30 ML TUBE EXT PRN (14:15)
[2017-03-15 15:10] LABS: URINE APPEARANCE CLEAR (CLEAR); URINE BILIRUBIN NEG (NEG); URINE COLOR YELLOW; URINE EPITHELIAL CELL AUTO 0-5 /lpf (0-5); URINE NITRITE NEG (NEG); URINE PH 5.5 (4.5-7.5); URINE SPECIFIC GRAVITY 1.023 (1.000-1.030); UROBILINOGEN NEG (NEG); ZZUR CULT IF INDIC CLEAN CATCH NO
[2017-03-15 15:14] LABS: MANUAL MICROSCOPIC REQUIRED? NO; REVIEW REQ? NO
--- NOTE | 2017-03-15 18:32 | Progress Note ---
Internal Med Progress Note Date of Service: Mar 15, 2017. Provider Documentation: SUBJECTIVE: The patient was seen and examined Can not pass any urine Abdominal discomfort No nausea and or vomiting OBJECTIVE: Vital Signs-as noted below Exam: General-NO distress at rest Eyes-normal ENT-normal Neck-supple Lungs-clear to auscultate bilaterally Heart-Regular,no murmur Abdomen-Benign,no masses,bowel sound present Extremities-Hand Drawer In edema Neuro-AAOx3 Lab data as noted below. ASSESSMENT & PLAN: Uncontrolled Diabetes Potential to get worse with DKA/Hyperosmolar state Last HbA1c A1c (9.6 in 08/2016) Likely secondary to medication non-compliance, dietary indiscretion, rule out infection- afebrile, +mild leukocytosis (WBC 13K) f/u CXR and UA Started on insulin drip and monitor electrolytes Consult pharmacy for glycemic control Check [id number] at 15 nutrition educator consult, also recommend podiatry referral as outpatient HYPOXIA-without any definite cause Was placed on O2 nasal cannula in ER, was hypoxic to high 80's upon removal by STRETCHER HELPER Not on home O2- check CXR to r/o PNA given leukocytosis and c/o cough Continue supplemental O2 per protocol AXEL ON CKD STAGE III Creat is 2.0, baseline 1.2 Possibly secondary to dehydration; No h/o NSAID use Hold lisinopril Received 1 liter IVF's in ER- continue at 125 cc/hour Avoid nephrotoxins when able Creatinine improvinh URINARY RETENTION Unable to void today, bladder scan + urinary retention in ER- 1450 mL output on straight cath UA pending-negative Likely secondary to BPH Bladder scan and straight cath PRN Urology consulted CHRONIC ANEMIA Hg is 10.9, was 11's back in 2012 Follow up as outpatient DYSLIPIDEMIA Continue statin DVT PROPHYLAXIS Heparin SQ CODE STATUS Full code per my discussion with the patient DISPOSITION Admission telemetry May need placement, lives alone, friend concerned he is unable to care for himself at home, and she is unable to care for him after discharge PT, OT, social service evaluation Follows with Dr. Ely Hernandez for primary care Vital Signs: Date Time Temp Pulse Resp B/P (MAP) Pulse Ox O2 Delivery O2 Flow Rate FiO2 03/15/17 16:00 Nasal Cannula 2.0 03/15/17 15:18 36.6 88 18 116/76 (89) 99 Nasal Cannula 2.0 03/15/17 12:00 Nasal Cannula 2.0 03/15/17 10:59 37.2 84 20 123/70 (87) 99 2.0 03/15/17 09:01 105 97 03/15/17 08:00 Nasal Cannula 2.0 03/15/17 07:20 37.0 88 20 132/75 (94) 96 2.0 03/15/17 04:17 36.5 88 16 144/88 (106) 98 03/15/17 04:00 Nasal Cannula 2.0 03/15/17 00:00 Nasal Cannula 2.0 03/14/17 23:52 36.6 85 16 113/73 (86) 94 Room Air 03/14/17 22:02 36.6 82 18 104/70 98 Nasal Cannula 2.0 Lab Results: Results Past 24 Hours Test 03/14/17 18:41 03/14/17 18:49 03/14/17 18:56 03/14/17 19:08 Range/Units Bedside Glucose 119 108 81 70-99 mg/dl Prothrombin Time 9.8 9.0-12.0 SECONDS Prothromb Time International Ratio 0.9 0.9-1.1 Activated Partial Thromboplast Time 24.3 21.0-31.0 SECONDS Partial Thromboplastin Ratio 0.9 Test 03/14/17 19:25 03/14/17 19:43 03/14/17 20:03 03/14/17 20:13 Range/Units Bedside Glucose 68 72 192 70-99 mg/dl Venous Blood pH 7.31 7.36-7.41 Sodium Level 141 136-145 mmol/L Potassium Level 3.9 3.5-5.1 mmol/L Chloride Level 108 98-107 mmol/L Carbon Dioxide Level 28 21-32 mmol/L Anion Gap 5.0 3-11 mmol/L Blood Urea Nitrogen 36 7-18 mg/dl Creatinine 1.80 0.60-1.40 mg/dl Est Creatinine Clear Calc Drug Dose 39.4 ml/min Estimated GFR () 42.9 Estimated GFR (Non- 37.0 BUN/Creatinine Ratio 20.0 10-20 Random Glucose 117 70-99 mg/dl Calcium Level 8.8 8.5-10.1 mg/dl Phosphorus Level 3.2 2.5-4.9 mg/dl Magnesium Level 2.6 1.8-2.4 mg/dl Test 03/14/17 21:43 03/15/17 01:50 03/15/17 05:37 03/15/17 07:32 Range/Units Bedside Glucose 210 230 209 70-99 mg/dl Sodium Level 141 136-145 mmol/L Potassium Level 4.8 3.5-5.1 mmol/L Chloride Level 109 98-107 mmol/L Carbon Dioxide Level 27 21-32 mmol/L Anion Gap 5.0 3-11 mmol/L Blood Urea Nitrogen 32 7-18 mg/dl Creatinine 1.40 0.60-1.40 mg/dl Est Creatinine Clear Calc Drug Dose 50.7 ml/min Estimated GFR () 58.2 Estimated GFR (Non- 50.2 BUN/Creatinine Ratio 22.8 10-20 Random Glucose 211 70-99 mg/dl Estimated Average Glucose 384 mg/dl Hemoglobin A1c 15.0 4.5-5.6 % Calcium Level 8.0 8.5-10.1 mg/dl Phosphorus Level 2.4 2.5-4.9 mg/dl Magnesium Level 2.5 1.8-2.4 mg/dl Test 03/15/17 11:22 03/15/17 14:30 03/15/17 16:10 Range/Units Bedside Glucose 285 134 70-99 mg/dl Urine Color YELLOW Urine Appearance CLEAR CLEAR Urine pH 5.5 4.5-7.5 Urine Specific [place] 1.023 1.000-1.030 Urine Protein NEG NEG Urine Glucose (UA) 3+ NEG Urine Ketones TRACE NEG Urine Occult Blood 1+ NEG Urine Nitrite NEG NEG Urine Bilirubin NEG NEG Urine Urobilinogen NEG NEG Urine Leukocyte Esterase NEG NEG Urine WBC (Auto) 0 0-5 /hpf Urine RBC (Auto) 0-4 0-4 /hpf Urine Hyaline Casts (Auto) 0 0-5 /lpf Urine Epithelial Cells (Auto) 0-5 0-5 /lpf Urine Bacteria (Auto) NEG NEG
--- NOTE | 2017-03-15 18:57 | Urology Consultation ---
History General Date of Service: Mar 15, 2017. Chief Complaint: urinary retention Primary Care Physician: Ely Hernandez D.O. Pt seen a urologist before?: No History of Present Illness I am asked by Dr Arevalo to evaluate and treat patient for urinary retention. he is admitted with hyperglycemia. he has been non compliant with his meds and his housing situation has been challenging of late. He says he has no voiding problems at all and all he trouble started once he got to the hospital. He had retention of over a liter and had no sensation of fullness. he does admit to some nocturia at home. He was on a intermittent cath routine here in hospital and nurses say each catheterization has been difficult. It has take 2-3 tries each time. They placed indwelling english this afternoon. The resistance to catheter passage has been proximal penile to bulbar urethra. He has had some urethral bleeding after catheter passage. Patient tells me he is going home to his apartment tomorrow. Imaging Imaging: Ultrasound Laboratory Results Past 24 Hours Test 03/14/17 18:56 03/14/17 19:08 03/14/17 19:25 03/14/17 19:43 Range/Units Bedside Glucose 108 81 68 72 70-99 mg/dl Test 03/14/17 20:03 03/14/17 20:13 03/14/17 21:43 03/15/17 01:50 Range/Units Venous Blood pH 7.31 7.36-7.41 Sodium Level 141 136-145 mmol/L Potassium Level 3.9 3.5-5.1 mmol/L Chloride Level 108 98-107 mmol/L Carbon Dioxide Level 28 21-32 mmol/L Anion Gap 5.0 3-11 mmol/L Blood Urea Nitrogen 36 7-18 mg/dl Creatinine 1.80 0.60-1.40 mg/dl Est Creatinine Clear Calc Drug Dose 39.4 ml/min Estimated GFR () 42.9 Estimated GFR (Non- 37.0 BUN/Creatinine Ratio 20.0 10-20 Random Glucose 117 70-99 mg/dl Calcium Level 8.8 8.5-10.1 mg/dl Phosphorus Level 3.2 2.5-4.9 mg/dl Magnesium Level 2.6 1.8-2.4 mg/dl Bedside Glucose 192 210 230 70-99 mg/dl Test 03/15/17 05:37 03/15/17 07:32 03/15/17 11:22 03/15/17 14:30 Range/Units Sodium Level 141 136-145 mmol/L Potassium Level 4.8 3.5-5.1 mmol/L Chloride Level 109 98-107 mmol/L Carbon Dioxide Level 27 21-32 mmol/L Anion Gap 5.0 3-11 mmol/L Blood Urea Nitrogen 32 7-18 mg/dl Creatinine 1.40 0.60-1.40 mg/dl Est Creatinine Clear Calc Drug Dose 50.7 ml/min Estimated GFR () 58.2 Estimated GFR (Non- 50.2 BUN/Creatinine Ratio 22.8 10-20 Random Glucose 211 70-99 mg/dl Estimated Average Glucose 384 mg/dl Hemoglobin A1c 15.0 4.5-5.6 % Calcium Level 8.0 8.5-10.1 mg/dl Phosphorus Level 2.4 2.5-4.9 mg/dl Magnesium Level 2.5 1.8-2.4 mg/dl Bedside Glucose 209 285 70-99 mg/dl Urine Color YELLOW Urine Appearance CLEAR CLEAR Urine pH 5.5 4.5-7.5 Urine Specific [place] 1.023 1.000-1.030 Urine Protein NEG NEG Urine Glucose (UA) 3+ NEG Urine Ketones TRACE NEG Urine Occult Blood 1+ NEG Urine Nitrite NEG NEG Urine Bilirubin NEG NEG Urine Urobilinogen NEG NEG Urine Leukocyte Esterase NEG NEG Urine WBC (Auto) 0 0-5 /hpf Urine RBC (Auto) 0-4 0-4 /hpf Urine Hyaline Casts (Auto) 0 0-5 /lpf Urine Epithelial Cells (Auto) 0-5 0-5 /lpf Urine Bacteria (Auto) NEG NEG Test 03/15/17 16:10 Range/Units Bedside Glucose 134 70-99 mg/dl Labs were reviewed and are within normal limits unless listed below. Labs are available in the chart and at [facility] Problem List Medical Problems: (1) Cutaneous abscess of chest wall Status: Acute (2) Hyperglycemia Status: Acute (3) Routine lab draw Status: Acute Past History diabetes, hypertension, other (eye disease) Past Surgical History: no surgical history Family History Diabetes mellitus SISTER Hypertension MOTHER Social History Hx Tobacco Use In Past Year?: No (QUIT 30 YEARS AGO) Alcohol: socially Marital status: Housing status: lives alone (staying with friend past few days) Occupation status: retired Immunizations History of Influenza Vaccine: Yes Influenza Vaccine Date: Mar 22, 2012 History of Tetanus Vaccine?: Unknown History of Pneumococcal: Yes Pneumococcal Date: Apr 02, 2012 History of Hepatitis B Vaccine: No History of MDRO No Allergies Coded Allergies: No Known Allergies (Unverified , 03/14/17) Medications Home Medications: Home Meds and Scripts Medications Dose Route/Sig Max Daily Dose Days Date Category Zestril (Lisinopril) 20 Mg Tab 20 Mg PO DAILY 03/14/17 Reported Neurontin (Gabapentin) 100 Mg Cap 100 Mg PO DAILY 08/24/16 Reported Glucotrol Xl (Glipizide) 10 Mg Tab 10 Mg PO QAM 10/17/14 Reported Lipitor (Atorvastatin Calcium) 10 Mg Tab 10 Mg PO DAILY 08/08/13 Reported Ecotrin Or Generic (Aspirin) 81 Mg Tab 81 Mg PO QAM 04/01/12 Reported Inpatient Medications: Current Inpatient Medications Medications (Trade) Dose Ordered Sig/Adolfo Route Start Time Stop Time Status Last Admin Dose Admin Miscellaneous Information (Consult Glycemic Management Pharmacy) 1 ea UD PRN N/A 03/14/17 16:00 04/13/17 15:59 Heparin Sodium (Porcine) (Heparin Sq 5000 Unit/0.5ml) 5,000 unit Q8 SQ 03/14/17 22:00 04/13/17 21:59 03/15/17 14:43 5,000 UNIT Acetaminophen (Tylenol Tab) 650 mg Q4H PRN PO 03/14/17 16:15 04/13/17 16:14 Ondansetron HCl (Zofran Inj) 4 mg Q6H PRN IV 03/14/17 16:15 04/13/17 16:14 Glucose (Glucose 40% Gel) 15-30 GRAMS 15 GRAMS... UD PRN PO 03/14/17 16:30 04/13/17 16:29 Glucose (Glucose Chew Tab) 4-8 Tablets 4 Tabl... UD PRN PO 03/14/17 16:30 04/13/17 16:29 Dextrose (Dextrose 50% 50ML Syringe) 25-50ML OF 50% DW IV FOR... UD PRN IV 03/14/17 16:30 04/13/17 16:29 Glucagon (Glucagon Inj) 1 mg UD PRN SQ 03/14/17 16:30 04/13/17 16:29 Aspirin (Ecotrin Tab) 81 mg QAM PO 03/15/17 09:00 04/14/17 08:59 03/15/17 07:57 81 MG Atorvastatin Calcium (Lipitor Tab) 10 mg DAILY PO 03/15/17 09:00 04/14/17 08:59 03/15/17 07:57 10 MG Gabapentin (Neurontin Cap) 100 mg DAILY PO 03/15/17 09:00 04/14/17 08:59 03/15/17 07:57 100 MG Insulin Aspart (novoLOG ASPART) SLIDING SCALE ACHS SC 03/14/17 21:00 04/13/17 20:59 03/15/17 17:36 4 UNITS Tamsulosin HCl (Flomax Cap) 0.4 mg QAM PO 03/15/17 09:00 04/14/17 08:59 03/15/17 07:57 0.4 MG Insulin Glargine (Lantus Solostar Pen) SEE PROTOCOL BID SC 03/15/17 21:00 04/14/17 20:59 Lidocaine HCl (Xylocaine Jelly 2%) 3 ml UD PRN EXT 03/15/17 14:15 04/14/17 14:14 Review of Systems Review of Systems Constitutional: + weight loss, No fever, No chills Endocrine: + excessive thirst, + tired/sluggish Gastrointestinal: + nausea Cardiovascular: No chest pain, No palpitations, No swelling ankles/feet Respiratory: No shortness of breath Male : + frequent urination, + weak stream, + blood in urine, + nocturia more than once/night Physical Exam Vital Signs: Vital Signs Past 12 Hours Date Time Temp Pulse Resp B/P (MAP) Pulse Ox O2 Delivery O2 Flow Rate FiO2 03/15/17 16:00 Nasal Cannula 2.0 03/15/17 15:18 36.6 88 18 116/76 (89) 99 Nasal Cannula 2.0 03/15/17 12:00 Nasal Cannula 2.0 03/15/17 10:59 37.2 84 20 123/70 (87) 99 2.0 03/15/17 09:01 105 97 03/15/17 08:00 Nasal Cannula 2.0 03/15/17 07:20 37.0 88 20 132/75 (05) 96 2.0 Physical Exam: General Appearance: WD/WN, no apparent distress, + thin Eyes: bilateral eyes normal inspection ENT: hearing grossly normal Neck: no adenopathy, no JVD, trachea midline Respiratory/Chest: no respiratory distress, no accessory muscle use Gastrointestinal: Abdomen: normal abdomen Bladder: normal bladder Renal: normal renal Hernia: absent hernia Genitourinary - Male: Penis: normal penis Urethral Meatus: normal urethral meatus Testes: normal testes Anus / Perineum: normal anus/perineum Sphincter Tone: normal sphincter tone Prostate: normal prostate, size (40 grams flat, no nodules) Extremities: normal inspection, no pedal edema, no calf tenderness Neurologic/Psychiatric: alert, + pertinent finding (very poor insight into his medical situation ) Assessment & Plan Assessment & Plan Urinary retention His lack of awareness of his severe retention 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 Will keep english at least a week. needs bladder rest. Then will need office cysto and void trial. Will attempt bph treatment but doubt he will resume voiding. Add tamsulosin and finasteride daily. I do not hink he can take care of a catheter himself at home and so he will need retirement.
[2017-03-15] MEDS: INSULIN GLARGINE SOLOSTAR 100 UNITS/ML 3 ML PEN SC SCH (20:32)
[2017-03-16] VITALS (7 sets, daily range): BP systolic 112–152; BP diastolic 68–85; PULSE 89–96; TEMP 36.7–37.1; O2SAT 97–99
[2017-03-16] MEDS: HEPARIN SOD 5000 UNIT/0.5 ML CARP SQ SCH ×3 (05:55→21:09)
[2017-03-16 06:39] LABS: CALCIUM 8.4 mg/dl (8.5-10.1); CREATININE 1.1 mg/dl (0.60-1.40); MAGNESIUM 2.2 mg/dl (1.8-2.4); PHOSPHORUS 2.8 mg/dl (2.5-4.9); POTASSIUM 4.2 mmol/L (3.5-5.1)
[2017-03-16] MEDS: ATORVASTATIN 10 MG TAB PO SCH (08:10)
[2017-03-16] MEDS: ASPIRIN 81 MG ECTAB PO SCH (08:10)
[2017-03-16] MEDS: GABAPENTIN 100 MG CAP PO SCH (08:10)
[2017-03-16] MEDS: FINASTERIDE 5 MG TAB PO SCH (08:11)
[2017-03-16] MEDS: INSULIN ASPART 100 UNITS/ML 3 ML PEN SC SCH ×4 (08:16→21:00)
[2017-03-16] MEDS: INSULIN GLARGINE SOLOSTAR 100 UNITS/ML 3 ML PEN SC SCH (08:18)
--- NOTE | 2017-03-16 10:40 | Pharmacy Progress Note ---
Glycemic Control Progress Note Date of Service Mar 16, 2017. Scope Glycemic Pharmacist consulted for glycemic control to write orders per [facility] inpatient glycemic control protocol. Objective Accuchecks BSG (last 24hrs): Test 03/15/17 11:22 03/15/17 16:10 03/15/17 20:26 03/16/17 05:37 Bedside Glucose 285 mg/dl (70-99) 134 mg/dl (70-99) 177 mg/dl (70-99) Random Glucose 116 mg/dl (70-99) Test 03/16/17 07:07 Bedside Glucose 126 mg/dl (70-99) HbA1c: Test 03/15/17 05:37 Hemoglobin A1c 15.0 % (4.5-5.6) H Recent Pertinent Medications Outpatient Anti-diabetic Regimen: * Glipizide XL 10 mg daily (has not been taking for the past few days) The patient is currently receiving: * Basal insulin: Lantus 0-15 units SQ BID (Lantus 0 units if blood sugar less than 120 mg/dL; Lantus 10 units if blood sugar 120-160 mg/dL; Lantus 15 units if blood sugar greater than 160 mg/dL) * Correctional Insulin: Novolog Correction per scale ACHS Goal Range: Low 140 mg/dL - High 180 mg/dL Correction Factor: 25 mg/dL/unit * Prandial insulin: Per carb ratio of 1 unit per 8 grams CHO consumed Risk Factors for Insulin Resistance: * Diet: type 2 diabetic diet Outpatient Anti-Diabetic Meds see above Assessment & Plan ASSESSMENT: * ADA & AACE recommend a goal blood sugar range 140-180 mg/dl for the majority of critically ill & non-critically ill patients. However, more stringent targets may be selected in individual cases. * Mr Vang is a 71 y/o M with a PMH of HTN, cellulitis, and CKD stage 3 who was seen at the surgery center for an eye biopsy. The patient's blood sugar was over 500 mg/dL, and he was sent to the emergency room. Patient has not been taking his oral glipizide for several days because he forgot it at home. Patient was initially started on an insulin infusion; his blood sugars decreased from 491 mg/dL to 68 mg/dL rapidly indicating the patient may have insulin sensitivity. * Yesterday, the patient required around 51 units of insulin (30 units of basal and 21 units of bolus). Blood sugars ranged from 134-230 mg/dL. Fasting this morning was 126 mg/dL which is reasonable but with patient's high HbA1C may be too low. Per scale, patient received Lantus 10 units. Plan to transition tomorrow to once daily Lantus dosing for outpatient dosing. Began Lantus 10 units tonight and then once daily Lantus 25 units tomorrow. Unsure of patient's true basal needs but 25 units is a reduced dose from 30 units which appears to be too aggressive. * Post-prandial blood sugars fluctuated greatly yesterday; however, after Lantus was given, dropped below 200 mg/dL. Will continue same parameters and loosen carbohydrate coverage if blood sugars drop further at lunch. PLAN FOR INPATIENT GLYCEMIC CONTROL: * Basal insulin with LANTUS 10 units SQ tonight and then 25 units once daily starting tomorrow * Correctional Insulin with NOVOLOG per scale ACHS or Q6hrs while NPO * Goal Range: Low 140 mg/dL - High 180 mg/dL * Correction Factor: 25 mg/dL/unit * Nutritional / Prandial insulin per carb ratio of 1 unit per 8 grams CHO consumed OUTPATIENT RECOMMENDATIONS * Currently, the patient's HbA1C is above goal range significantly. Recommend sending patient home with Lantus (may start at 20 units daily) if able to be compliant. If sent home on Lantus, would not recommend continuing glipizide as this can increase risk of hypoglycemia. Thank you.
--- NOTE | 2017-03-16 15:40 | Progress Note ---
Internal Med Progress Note Date of Service: Mar 16, 2017. Provider Documentation: SUBJECTIVE: The patient was seen and examined Denies any symptoms Has Poor eye sight Can not manage his own Insulin OBJECTIVE: Vital Signs-as noted below Exam: General-NO distress at rest Eyes-normal ENT-normal Neck-supple Lungs-clear to auscultate bilaterally Heart-Regular,no murmur Abdomen-Benign,no masses,bowel sound present Extremities-Night Auditor edema Neuro-AAOx3 Lab data as noted below. ASSESSMENT & PLAN: Uncontrolled Diabetes Potential to get worse with DKA/Hyperosmolar state Last HbA1c A1c (9.6 in 08/2016) Likely secondary to medication non-compliance, dietary indiscretion, rule out infection- afebrile, +mild leukocytosis (WBC 13K) f/u CXR and UA Started on insulin drip and monitor electrolytes Consult pharmacy for glycemic control-appreciate input Check [id number] at 15 museum educator consult, also recommend podiatry referral as outpatient Will need placement or home with oral antidiabetic pills HYPOXIA-without any definite cause Was placed on O2 nasal cannula in ER, was hypoxic to high 80's upon removal by DEPUTY GENERAL COUNSEL Not on home O2- check CXR to r/o PNA given leukocytosis and c/o cough Continue supplemental O2 per protocol Resolved AXEL ON CKD STAGE III Creat is 2.0, baseline 1.2 Possibly secondary to dehydration; No h/o NSAID use Hold lisinopril Received 1 liter IVF's in ER- continue at 125 cc/hour Avoid nephrotoxins when able Creatinine improving URINARY RETENTION Unable to void today, bladder scan + urinary retention in ER- 1450 mL output on straight cath UA pending-negative Likely secondary to BPH Bladder scan and straight cath PRN Urology consulted-appreciate Input S/P Bull placement and Flomax added CHRONIC ANEMIA Hg is 10.9, was 11's back in 2013 Follow up as outpatient DYSLIPIDEMIA Continue statin DVT PROPHYLAXIS Heparin SQ CODE STATUS Full code per my discussion with the patient DISPOSITION Admission telemetry May need placement, lives alone, friend concerned he is unable to care for himself at home, and she is unable to care for him after discharge PT, OT, social service evaluation Follows with Dr. Ely Hernandez for primary care Vital Signs: Date Time Temp Pulse Resp B/P (MAP) Pulse Ox O2 Delivery O2 Flow Rate FiO2 03/16/17 15:04 37.1 96 18 112/68 (83) 98 Nasal Cannula 2.0 03/16/17 12:20 Nasal Cannula 2.0 03/16/17 11:32 37.0 90 20 152/84 (106) 99 Nasal Cannula 2.0 03/16/17 08:00 Nasal Cannula 2.0 03/16/17 07:30 36.7 91 20 142/80 (100) 97 Nasal Cannula 2.0 03/16/17 04:00 Nasal Cannula 2.0 03/16/17 03:15 89 19 135/76 (95) 99 Nasal Cannula 2.0 03/16/17 00:00 Nasal Cannula 2.0 03/15/17 23:15 37.0 86 18 118/61 (80) 98 Nasal Cannula 2.0 03/15/17 20:00 Nasal Cannula 2.0 03/15/17 19:11 37.2 90 20 144/73 (96) 99 Nasal Cannula 2.0 03/15/17 16:00 Nasal Cannula 2.0 Lab Results: Results Past 24 Hours Test 03/15/17 16:10 03/15/17 20:26 03/16/17 05:37 03/16/17 07:07 Range/Units Bedside Glucose 134 177 126 70-99 mg/dl Sodium Level 142 136-145 mmol/L Potassium Level 4.2 3.5-5.1 mmol/L Chloride Level 108 98-107 mmol/L Carbon Dioxide Level 27 21-32 mmol/L Anion Gap 7.0 3-11 mmol/L Blood Urea Nitrogen 20 7-18 mg/dl Creatinine 1.10 0.60-1.40 mg/dl Est Creatinine Clear Calc Drug Dose 64.5 ml/min Estimated GFR () 77.9 Estimated GFR (Non- 67.2 BUN/Creatinine Ratio 18.0 10-20 Random Glucose 116 70-99 mg/dl Calcium Level 8.4 8.5-10.1 mg/dl Phosphorus Level 2.8 2.5-4.9 mg/dl Magnesium Level 2.2 1.8-2.4 mg/dl Test 03/16/17 11:50 Range/Units Bedside Glucose 161 70-99 mg/dl
[2017-03-16] MEDS ORDERED: INSULIN GLARGINE SOLOSTAR 100 UNITS/ML 3 ML PEN SC SCH (21:00)
[2017-03-16] MEDS: TAMSULOSIN HCL 0.4 MG CAP PO SCH (21:06)
[2017-03-17] VITALS (17 sets, daily range): BP systolic 99–164; BP diastolic 58–91; PULSE 74–125; TEMP 36.4–37.4; O2SAT 93–98
[2017-03-17] MEDS ORDERED: INSULIN ASPART 100 UNITS/ML 3 ML PEN SC SCH (02:00)
[2017-03-17] MEDS: HEPARIN SOD 5000 UNIT/0.5 ML CARP SQ SCH ×3 (06:11→22:16)
[2017-03-17 06:53] LABS: HEMATOCRIT 31.7 % (42-52); MEAN CELL VOLUME 88.5 fL (80-100); MEAN CORPUSCULAR HEMOGLOBIN 29.1 pg (25-34); MEAN CORPUSCULAR HGB CONC 32.8 g/dl (32-36); MEAN PLATELET VOLUME 10.3 fL (7.4-10.4); PLATELET COUNT 186 K/uL (130-400); RED BLOOD COUNT 3.58 M/uL (4.7-6.1); WHITE BLOOD COUNT 8.95 K/uL (4.8-10.8)
[2017-03-17 07:25] LABS: BUN/CREATININE RATIO 16.7 (10-20); CALCIUM 8.9 mg/dl (8.5-10.1); CREATININE 1.1 mg/dl (0.60-1.40); MAGNESIUM 2.2 mg/dl (1.8-2.4); PHOSPHORUS 3.3 mg/dl (2.5-4.9); POTASSIUM 4.3 mmol/L (3.5-5.1)
[2017-03-17] MEDS: FINASTERIDE 5 MG TAB PO SCH (08:10)
[2017-03-17] MEDS: ASPIRIN 81 MG ECTAB PO SCH (08:10)
[2017-03-17] MEDS: GABAPENTIN 100 MG CAP PO SCH (08:10)
[2017-03-17] MEDS: ATORVASTATIN 10 MG TAB PO SCH (08:10)
[2017-03-17] MEDS: INSULIN ASPART 100 UNITS/ML 3 ML PEN SC SCH ×4 (08:13→22:14)
[2017-03-17] MEDS ORDERED: INSULIN GLARGINE SOLOSTAR 100 UNITS/ML 3 ML PEN SC SCH (12:00)
--- NOTE | 2017-03-17 12:17 | Progress Note ---
Internal Med Progress Note Date of Service: Mar 17, 2017. Provider Documentation: SUBJECTIVE: The patient was seen and examined Denies any symptoms again today Has Poor eye sight Can not manage his own Insulin Accepted to [facility] OBJECTIVE: Vital Signs-as noted below Exam: General-NO distress at rest Eyes-normal ENT-normal Neck-supple Lungs-clear to auscultate bilaterally Heart-Regular,no murmur Abdomen-Benign,no masses,bowel sound present Extremities-No edema Neuro-AAOx3 Lab data as noted below. ASSESSMENT & PLAN: Uncontrolled Diabetes Potential to get worse with DKA/Hyperosmolar state Last HbA1c A1c (9.6 in 08/2016) Likely secondary to medication non-compliance, dietary indiscretion, rule out infection- afebrile, +mild leukocytosis (WBC 13K) f/u CXR and UA Started on insulin drip and monitor electrolytes Consult pharmacy for glycemic control-appreciate input Check [id number] at 15 cooking teacher consult, also recommend podiatry referral as outpatient Discharge to [facility] on Insulin HYPOXIA-without any definite cause Was placed on O2 nasal cannula in ER, was hypoxic to high 80's upon removal by HOSPICE ART THERAPIST Not on home O2- check CXR to r/o PNA given leukocytosis and c/o cough Continue supplemental O2 per protocol Resolved AXEL ON CKD STAGE III Creat is 2.0, baseline 1.2 Possibly secondary to dehydration; No h/o NSAID use Hold lisinopril Received 1 liter IVF's in ER- continue at 125 cc/hour Avoid nephrotoxins when able Creatinine improving Will restart Lisinopril URINARY RETENTION Unable to void today, bladder scan + urinary retention in ER- 1450 mL output on straight cath UA pending-negative Likely secondary to BPH Bladder scan and straight cath PRN Urology consulted-appreciate Input S/P Bull placement and Flomax added Will need to see Urology in 1 week CHRONIC ANEMIA Hg is 10.9, was 11's back in 2013 Follow up as outpatient DYSLIPIDEMIA Continue statin DVT PROPHYLAXIS Heparin SQ CODE STATUS Full code per my discussion with the patient DISPOSITION Admission telemetry May need placement, lives alone, friend concerned he is unable to care for himself at home, and she is unable to care for him after discharge PT, OT, social service evaluation Follows with Dr. Ely Hernandez for primary care Discharge to [facility] today Vital Signs: Date Time Temp Pulse Resp B/P (MAP) Pulse Ox O2 Delivery O2 Flow Rate FiO2 03/17/17 11:26 37.4 91 16 124/72 (89) 98 Nasal Cannula 2.0 03/17/17 08:00 Nasal Cannula 1.0 03/17/17 07:34 36.5 97 16 99/64 (76) 97 Nasal Cannula 2.0 03/17/17 04:50 36.6 87 20 120/71 (87) 93 2.0 03/17/17 04:00 Nasal Cannula 1.0 03/17/17 00:19 36.4 94 20 152/85 (107) 97 2.0 03/17/17 00:00 Nasal Cannula 1.0 03/16/17 20:29 36.9 90 18 144/85 (104) 97 Nasal Cannula 2.0 03/16/17 20:00 98 Nasal Cannula 1.0 03/16/17 16:00 98 Nasal Cannula 1.0 03/16/17 15:04 37.1 96 18 112/68 (83) 98 Nasal Cannula 2.0 03/16/17 12:20 Nasal Cannula 2.0 Lab Results: Results Past 24 Hours Test 03/16/17 16:22 03/16/17 20:32 03/17/17 01:38 03/17/17 01:52 Range/Units Bedside Glucose 199 83 73 106 70-99 mg/dl Test 03/17/17 06:23 03/17/17 07:51 03/17/17 11:38 Range/Units White Blood Count 8.95 4.8-10.8 K/uL Red Blood Count 3.58 4.7-6.1 M/uL Hemoglobin 10.4 14.0-18.0 g/dL Hematocrit 31.7 42-52 % Mean Corpuscular Volume 88.5 80-100 fL Mean Corpuscular Hemoglobin 29.1 25-34 pg Mean Corpuscular Hemoglobin Concent 32.8 32-36 g/dl RDW Standard Deviation 42.2 36.4-46.3 fL RDW Coefficient of Variation 13.0 11.5-14.5 % Platelet Count 186 130-400 K/uL Mean Platelet Volume 10.3 7.4-10.4 fL Sodium Level 140 136-145 mmol/L Potassium Level 4.3 3.5-5.1 mmol/L Chloride Level 106 98-107 mmol/L Carbon Dioxide Level 28 21-32 mmol/L Anion Gap 6.0 3-11 mmol/L Blood Urea Nitrogen 18 7-18 mg/dl Creatinine 1.10 0.60-1.40 mg/dl Est Creatinine Clear Calc Drug Dose 63.8 ml/min Estimated GFR () 77.9 Estimated GFR (Non- 67.2 BUN/Creatinine Ratio 16.7 10-20 Random Glucose 101 70-99 mg/dl Calcium Level 8.9 8.5-10.1 mg/dl Phosphorus Level 3.3 2.5-4.9 mg/dl Magnesium Level 2.2 1.8-2.4 mg/dl Bedside Glucose 114 138 70-99 mg/dl
[2017-03-17] MEDS ORDERED: INSDGIPEN SC (13:33)
[2017-03-17] MEDS ORDERED: PRS5 PO (13:33)
[2017-03-17] MEDS ORDERED: FLM4 PO (13:33)
--- NOTE | 2017-03-17 13:39 | Discharge Instructions ---
Discharge Instructions Date of Service Mar 17, 2017. Admission Reason for Admission: Acute Kidney Injury, Hyperglycemia Discharge Discharge Diagnosis / Problem: Uncontrolled DM-started on Insulin,BPH s/p Bull placement Discharge Goals Goal(s): Prevent Disease Progression Activity Recommendations Activity Level: Assistance Required Therapies: Physical Therapy, Occupational Therapy . Additional Information Patient informed of condition: Yes Advance Directives: No DNR: No Level of Care: Skilled Communicable Disease: No Prognosis: Stable Oxygen at (LPM): 2 liters/min via NC as needed Bull Catheter: Yes (Please make an appointment with Dr Gentile in 1 week) Instructions / Follow-Up Instructions / Follow-Up Dr Gentile (Urology ) in 1 week.Pl make an appointment with your PCP within 1 week following discharge from the facility Current Hospital Diet Patient's current hospital diet: Diabetes Type 2 Diet, AHA Diet (Heart Healthy) Discharge Diet Recommended Diet: AHA Diet (Heart Healthy), Diabetes Type 2 Diet Pending Studies Studies pending at discharge: no Physician Orders On Transfer POLST Discussion: Not Applicable Laboratory Results Hemoglobin A1c Test 03/15/17 05:37 Range/Units Estimated Average Glucose 384 mg/dl Hemoglobin A1c 15.0 H 4.5-5.6 % Medical Emergencies . Who to Call and When: Medical Emergencies: If at any time you feel your situation is an emergency, please call 911 immediately. . Non-Emergent Contact Non-Emergency issues call your: Primary Care Provider . Past History Medical & Surgical History: (1) BPH (benign prostatic hyperplasia) (2) Benign hypertension (3) Diabetes mellitus type 2 (4) GERD (gastroesophageal reflux disease) (5) AXEL (acute kidney injury) (6) S/P tonsillectomy (7) H/O skin graft . "Provider Documentation" section prepared by Valeria Cruz. . Core Measure Problem Core Measures: None
--- NOTE | 2017-03-17 17:15 | Progress Note ---
Progress Note Date of Service Mar 17, 2017. Progress Note Patient was about to leave the hospital Was taken out of Bed on a chair Got dizzy and voiced that he is about to Looked very Pale and BP low at Systolic 60s No LOC and no focal deficit noted Patient was put back in Bed-color came back 1000 mls NS bolus ordered,labs drawn ,discharge cancelled DR Phani Cruz
[2017-03-17 17:27] LABS: HEMATOCRIT 34.9 % (42-52); MEAN CELL VOLUME 87.9 fL (80-100); MEAN CORPUSCULAR HEMOGLOBIN 28.5 pg (25-34); MEAN CORPUSCULAR HGB CONC 32.4 g/dl (32-36); MEAN PLATELET VOLUME 10.8 fL (7.4-10.4); PLATELET COUNT 217 K/uL (130-400); RED BLOOD COUNT 3.97 M/uL (4.7-6.1); WHITE BLOOD COUNT 9.02 K/uL (4.8-10.8)
[2017-03-17] MEDS ORDERED: SODIUM CHLORIDE 0.9% 1000ML 1,000 ML IV SCH (17:30)
[2017-03-17 17:38] LABS: BLOOD UREA NITROGEN 21 mg/dl (7-18); BUN/CREATININE RATIO 15.1 (10-20); CALCIUM 9.5 mg/dl (8.5-10.1); CARBON DIOXIDE 26 mmol/L (21-32); CHLORIDE 106 mmol/L (98-107); GLUCOSE 111 mg/dl (70-99); MAGNESIUM 2.3 mg/dl (1.8-2.4); POTASSIUM 4.2 mmol/L (3.5-5.1); SODIUM 139 mmol/L (136-145)
[2017-03-17] MEDS: TAMSULOSIN HCL 0.4 MG CAP PO SCH (22:11)
[2017-03-18] VITALS (7 sets, daily range): BP systolic 109–145; BP diastolic 67–79; PULSE 83–109; TEMP 36.6–37.2; O2SAT 91–99; Ht 182.9 cm; Wt 72.4 kg
[2017-03-18] MEDS: HEPARIN SOD 5000 UNIT/0.5 ML CARP SQ SCH ×3 (05:33→20:51)
[2017-03-18] MEDS: ATORVASTATIN 10 MG TAB PO SCH (08:31)
[2017-03-18] MEDS: GABAPENTIN 100 MG CAP PO SCH (08:31)
[2017-03-18] MEDS: ASPIRIN 81 MG ECTAB PO SCH (08:31)
[2017-03-18] MEDS: FINASTERIDE 5 MG TAB PO SCH (08:32)
[2017-03-18] MEDS: INSULIN ASPART 100 UNITS/ML 3 ML PEN SC SCH ×4 (08:36→20:50)
--- NOTE | 2017-03-18 09:27 | Pharmacy Progress Note ---
Glycemic: Assessment & Plan Date of Service Mar 18, 2017. Assessment & Plan The patient is currently receiving about 34 units of insulin per day. BSGs ranging 67 - 177 mg/dl over the past 24hrs. BSG 67mg/dl this morning - treated with OJ. Will decrease dose of Lantus and loosen CF and CR to prevent further hypoglycemia. Pt was to be discharged to [facility] yesterday, but was kept inpatient d/t orthostatic hypotension. Test 03/17/17 11:38 03/17/17 16:00 03/17/17 16:55 03/17/17 17:09 Bedside Glucose 138 mg/dl (70-99) 125 mg/dl (70-99) 115 mg/dl (70-99) Random Glucose 111 mg/dl (70-99) Test 03/17/17 20:22 03/18/17 07:21 Bedside Glucose 177 mg/dl (70-99) 67 mg/dl (70-99) * Basal insulin: DECREASE: Lantus 20 units QHS * Correctional Insulin: Novolog Correction per scale ACHS Goal Range: Low 110 mg/dL - High 140 mg/dL CHANGE: Correction Factor: 30 mg/dL/unit * Prandial insulin: CHANGE: Per carb ratio of 1 unit per 10 grams CHO consumed Pharmacy will continue to monitor patient daily and write orders per [facility] inpatient glycemic control protocol. Thanks. * Please note that the plan above was derived based on current level of insulin resistance and hospital stress. These recommendations are appropriate for inpatient admission only. Plan of care upon discharge will need to be reassessed to avoid potential outpatient hypo/hyperglycemia.
--- NOTE | 2017-03-18 14:22 | Progress Note ---
Internal Med Progress Note Date of Service: Mar 18, 2017. Provider Documentation: SUBJECTIVE: The patient was seen and examined Hypotensive episode yesterday Mo more episodes Orthostasis is positive for BP but no symptoms OBJECTIVE: Vital Signs-as noted below Exam: General-NO distress at rest Eyes-normal ENT-normal Neck-supple Lungs-clear to auscultate bilaterally Heart-Regular,no murmur Abdomen-Benign,no masses,bowel sound present Extremities-No edema Neuro-AAOx3 Lab data as noted below. ASSESSMENT & PLAN: Orthostatic Hypotension Significant drop in SBP but no change in Pulse and or symptoms Ambulation well No desaturation Will discharge Uncontrolled Diabetes Potential to get worse with DKA/Hyperosmolar state Last HbA1c A1c (9.6 in 08/2016) Likely secondary to medication non-compliance, dietary indiscretion, rule out infection- afebrile, +mild leukocytosis (WBC 13K) f/u CXR and UA Started on insulin drip and monitor electrolytes Consult pharmacy for glycemic control-appreciate input Check [id number] at 15 benefits analyst consult, also recommend podiatry referral as outpatient Discharge to [facility] on Insulin today HYPOXIA-without any definite cause Was placed on O2 nasal cannula in ER, was hypoxic to high 80's upon removal by DECATOR OPERATOR Not on home O2- check CXR to r/o PNA given leukocytosis and c/o cough Continue supplemental O2 per protocol Resolved Ambulating without any drop in Saturation AXEL ON CKD STAGE III Creat is 2.0, baseline 1.2 Possibly secondary to dehydration; No h/o NSAID use Hold lisinopril Received 1 liter IVF's in ER- continue at 125 cc/hour Avoid nephrotoxins when able Creatinine improving Will restart Lisinopril URINARY RETENTION Unable to void today, bladder scan + urinary retention in ER- 1450 mL output on straight cath UA pending-negative Likely secondary to BPH Bladder scan and straight cath PRN Urology consulted-appreciate Input S/P Bull placement and Flomax added Will need to see Urology in 1 week CHRONIC ANEMIA Hg is 10.9, was 11's back in 2013 Follow up as outpatient DYSLIPIDEMIA Continue statin DVT PROPHYLAXIS Heparin SQ CODE STATUS Full code per my discussion with the patient DISPOSITION Admission telemetry May need placement, lives alone, friend concerned he is unable to care for himself at home, and she is unable to care for him after discharge PT, OT, social service evaluation Follows with Dr. Ely Hernandez for primary care Discharge to [facility] 03/18/17 Vital Signs: Date Time Temp Pulse Resp B/P (MAP) Pulse Ox O2 Delivery O2 Flow Rate FiO2 03/18/17 12:15 Nasal Cannula 2.0 03/18/17 11:35 37.2 92 16 141/79 (99) 96 Room Air 96 127/69 (88) 109 111/67 (82) 03/18/17 08:30 Nasal Cannula 2.0 03/18/17 07:38 36.8 94 16 117/70 (86) 97 Nasal Cannula 2.0 03/18/17 04:00 Nasal Cannula 2.0 03/18/17 03:56 36.6 83 16 117/71 (86) 99 Nasal Cannula 2.0 03/18/17 00:00 Nasal Cannula 2.0 03/17/17 23:47 37.0 96 16 134/84 (101) 97 Nasal Cannula 2.0 03/17/17 20:08 125 16 153/86 (108) 97 Nasal Cannula 2.0 03/17/17 20:06 113 142/80 (100) 98 Nasal Cannula 2.0 03/17/17 20:04 114 18 124/63 (83) 98 Nasal Cannula 2.0 03/17/17 20:02 102 149/82 (104) 96 Nasal Cannula 2.0 03/17/17 20:00 36.9 98 16 164/91 (115) 96 Nasal Cannula 2.0 03/17/17 20:00 96 Nasal Cannula 2.0 03/17/17 19:58 36.8 74 16 130/88 (102) 96 Nasal Cannula 2.0 03/17/17 18:26 36.5 96 16 159/88 (111) 96 Nasal Cannula 2.0 03/17/17 16:56 112/58 (76) 93 Room Air 03/17/17 15:44 36.4 92 16 138/83 (101) 98 Nasal Cannula 2.0 Lab Results: Results Past 24 Hours Test 03/17/17 16:00 03/17/17 16:55 03/17/17 17:09 03/17/17 20:22 Range/Units Bedside Glucose 125 115 177 70-99 mg/dl White Blood Count 9.02 4.8-10.8 K/uL Red Blood Count 3.97 4.7-6.1 M/uL Hemoglobin 11.3 14.0-18.0 g/dL Hematocrit 34.9 42-52 % Mean Corpuscular Volume 87.9 80-100 fL Mean Corpuscular Hemoglobin 28.5 25-34 pg Mean Corpuscular Hemoglobin Concent 32.4 32-36 g/dl RDW Standard Deviation 42.2 36.4-46.3 fL RDW Coefficient of Variation 13.0 11.5-14.5 % Platelet Count 217 130-400 K/uL Mean Platelet Volume 10.8 7.4-10.4 fL Sodium Level 139 136-145 mmol/L Potassium Level 4.2 3.5-5.1 mmol/L Chloride Level 106 98-107 mmol/L Carbon Dioxide Level 26 21-32 mmol/L Anion Gap 7.0 3-11 mmol/L Blood Urea Nitrogen 21 7-18 mg/dl Creatinine 1.40 0.60-1.40 mg/dl Est Creatinine Clear Calc Drug Dose 50.1 ml/min Estimated GFR () 58.2 Estimated GFR (Non- 50.2 BUN/Creatinine Ratio 15.1 10-20 Random Glucose 111 70-99 mg/dl Calcium Level 9.5 8.5-10.1 mg/dl Magnesium Level 2.3 1.8-2.4 mg/dl Troponin I < 0.015 0-0.045 ng/ml Test 03/18/17 07:21 03/18/17 07:55 03/18/17 11:54 Range/Units Bedside Glucose 67 93 184 70-99 mg/dl
[2017-03-18] MEDS: TAMSULOSIN HCL 0.4 MG CAP PO SCH (20:45)
[2017-03-18] MEDS ORDERED: INSULIN GLARGINE SOLOSTAR 100 UNITS/ML 3 ML PEN SC SCH (21:00)
[2017-03-19 04:00] VITALS: BP_SYST 118; BP_SYST 128; BP_DIAS 70; BP_DIAS 79; PULSE 61; PULSE 85; TEMP 36.5; TEMP 37.1; O2SAT 95
[2017-03-19] MEDS: HEPARIN SOD 5000 UNIT/0.5 ML CARP SQ SCH (06:27)
[2017-03-19 07:35] VITALS: BP 136/71; PULSE 97; TEMP 37.2; O2SAT 98
[2017-03-19] MEDS: FINASTERIDE 5 MG TAB PO SCH (07:48)
[2017-03-19] MEDS: GABAPENTIN 100 MG CAP PO SCH (07:48)
[2017-03-19] MEDS: ATORVASTATIN 10 MG TAB PO SCH (07:48)
[2017-03-19] MEDS: ASPIRIN 81 MG ECTAB PO SCH (07:48)
[2017-03-19] MEDS: INSULIN ASPART 100 UNITS/ML 3 ML PEN SC SCH (08:30)
--- NOTE | 2017-03-28 07:36 | Discharge Summary ---
Discharge Summary Date of Service Mar 28, 2017. Discharge Summary Admission Date: Mar 14, 2017 at 16:04 Discharge Date: Mar 18, 2017 Principal Diagnosis: Uncontrolled DM-started on Insulin,BPH s/p Bull placement for retention Secondary Diagnoses/Problems: Please see H&P and Hospital progress note Consultations: Urology Medication Reconciliation New Medications: Finasteride (Finasteride) 5 Mg Tab 5 MG PO QAM for 30 Days, #30 TAB Insulin Glargine (Lantus Solostar) 100 Unit/Ml Inj 20 UNITS SC HS for 30 Days, #1 PEN Tamsulosin HCl (Tamsulosin HCl) 0.4 Mg Cap 0.4 MG PO HS for 30 Days, #30 CAP Continued Medications: Aspirin Enteric Coated (Ecotrin Or Generic) 81 Mg Tab 81 MG PO QAM, TAB Atorvastatin (Lipitor) 10 Mg Tab 10 MG PO DAILY, TAB Gabapentin (Neurontin) 100 Mg Cap 100 MG PO DAILY, CAP Lisinopril (Zestril) 20 Mg Tab 20 MG PO DAILY, TAB Discontinued Medications: Glipizide Xl (Glucotrol Xl) 10 Mg Tab 10 MG PO QAM, TAB Admission Information HPI (per Admitting provider): This is a 71 year old male with PMH of DM type 2, HTN, dyslipidemia, CKD stage III, and other problems listed below who was sent to the ED from [facility] for hyperglycemia. BSG was in 500s ARCHITECTURE CONSULTANT at surgical center, where he was supposed to have eye biopsy. Pt has not checked home BSG for several months. Patient was living alone, but has been staying with a friend for past 3 days. Has not taken glipizide since 3 days ago as he left it at home. Friend at bedside states he was eating (indiscretion with cookies, candy) at her home up until yesterday. Did not eat/ drink today due to being NPO for procedure. Pt reports nonproductive cough with nasal congestion and rhinorrhea x 1 week. Pt has been unable to void today- last voided yesterday evening. Ambulates with a cane. He fell out of bed overnight- denies any injury, head trauma, LOC. Chronic bilateral decreased vision is unchanged. Denies recent fever or chills. Denies headache, sinus pain, ear ache, sore throat, tooth ache, chest pain, SOB , abdominal pain, N/V/D, dysuria, frequency, rash, open wound. The friend he is staying with has been ill with fever, vomiting, diarrhea. Pt's friend has concern about patient's ability to care for himself, and she is unable to care for him upon discharge. Patient's blood sugar was in 500s in ED. Received 10 units of regular insulin SC and BSG 1 hour later was 490. Per REAL ESTATE ACQUISITION ANALYST, patient was placed on oxygen 2 liters NC while she was on break, then when she removed the O2, patient was hypoxic to high 80's. Now saturating well on 2 liters NC. No home O2 use. Denies hx of lung disease. Past Medical/Surgical History Medical Problems: (1) Benign hypertension Status: Chronic (2) Cellulitis of leg Status: Resolved (3) CKD (chronic kidney disease), stage III Status: Chronic (4) Diabetes mellitus type 2 Status: Chronic (5) GERD (gastroesophageal reflux disease) Status: Chronic (6) Hyperlipidemia Status: Chronic Surgical Problems: (1) H/O skin graft Status: Chronic (2) S/P tonsillectomy Status: Chronic Family History Diabetes mellitus SISTER Hypertension MOTHER Social History Smoking Status: Never Smoker Alcohol Use: none (denies alcohol use. of note, alcohol abuse is listed in outpatient records. ) Drug Use: none Marital Status: Housing status: lives alone (staying with friend past few days) Occupational Status: retired Immunizations History of Influenza Vaccine: Yes Influenza Vaccine Date: Mar 22, 2012 History of Tetanus Vaccine?: Unknown History of Pneumococcal: Yes Pneumococcal Date: Apr 02, 2012 History of Hepatitis B Vaccine: No Multi-Drug Resistant Organisms History of MDRO: No Allergies Coded Allergies: No Known Allergies (Unverified , 03/14/17) Home Medications Scheduled Aspirin Enteric Coated (Ecotrin Or Generic), 81 MG PO QAM Atorvastatin (Lipitor), 10 MG PO DAILY Gabapentin (Neurontin), 100 MG PO DAILY Glipizide Xl (Glucotrol Xl), 10 MG PO QAM Lisinopril (Zestril), 20 MG PO DAILY Review of Systems Ten systems reviewed and negative except as noted in HPI. Physical Exam Vital Signs Date Time Temp Pulse Resp B/P (MAP) Pulse Ox O2 Delivery O2 Flow Rate FiO2 03/14/17 16:11 89 18 134/83 98 2.0 03/14/17 14:15 95 16 133/77 90 03/14/17 12:38 81 03/14/17 12:22 36.7 90 16 134/81 99 General Appearance: WD/WN, no apparent distress Head: normocephalic, atraumatic Eyes: + pertinent finding (right cornea appears opaque, left pupil reactive to light) ENT: hearing grossly normal, TMs normal, pharynx normal, + pertinent finding ( almost edentulous, existing few teeth are in poor condition but no abscesses seen, no gum or tooth tenderness to palpation) Neck: supple, trachea midline Respiratory/Chest: lungs clear, normal breath sounds, no respiratory distress, no accessory muscle use, + pertinent finding (saturating well on 2 liters NC) Cardiovascular: regular rate, rhythm, no murmur Abdomen/GI: normal bowel sounds, non tender, soft Extremities/Musculoskelatal: no calf tenderness, no pedal edema, + pertinent finding (medial right chronic bony deformity. toenails are in poor repair, especially right 1st and 2nd digit. right 2nd toe mild erythema of entire toe, no swelling or tenderness.) Neurologic/Psych: alert, normal mood/affect, oriented x 3, + pertinent finding (sensation to light touch intact on bilateral feet) Skin: normal color, warm/dry Diagnostics Laboratory Results Results Past 24 Hours Test 03/14/17 12:23 03/14/17 13:45 03/14/17 13:53 03/14/17 15:18 Range/Units Bedside Glucose 576 491 70-99 mg/dl White Blood Count 13.08 4.8-10.8 K/uL Red Blood Count 3.79 4.7-6.1 M/uL Hemoglobin 10.9 14.0-18.0 g/dL Hematocrit 33.1 42-52 % Mean Corpuscular Volume 87.3 80-100 fL Mean Corpuscular Hemoglobin 28.8 25-34 pg Mean Corpuscular Hemoglobin Concent 32.9 32-36 g/dl Platelet Count 196 130-400 K/uL Mean Platelet Volume 10.8 7.4-10.4 fL Neutrophils (%) (Auto) 78.2 % Lymphocytes (%) (Auto) 16.1 % Monocytes (%) (Auto) 4.7 % Eosinophils (%) (Auto) 0.6 % Basophils (%) (Auto) 0.2 % Neutrophils # (Auto) 10.23 1.4-6.5 K/uL Lymphocytes # (Auto) 2.11 1.2-3.4 K/uL Monocytes # (Auto) 0.61 0.11-0.59 K/uL Eosinophils # (Auto) 0.08 0-0.5 K/uL Basophils # (Auto) 0.02 0-0.2 K/uL RDW Standard Deviation 42.5 36.4-46.3 fL RDW Coefficient of Variation 13.2 11.5-14.5 % Immature Granulocyte % (Auto) 0.2 % Immature Granulocyte # (Auto) 0.03 0.00-0.02 K/uL Venous Blood pH 7.38 7.36-7.41 Venous Blood Partial Pressure CO2 44 38.0-50.0 mmHg Venous Blood Partial Pressure O2 32 mmHg Venous Blood HCO3 25 mmol/L Venous Blood Oxygen Saturation 60.5 % Venous Blood Base Excess 0.1 mEq/L Sodium Level 133 136-145 mmol/L Potassium Level 5.0 3.5-5.1 mmol/L Chloride Level 101 98-107 mmol/L Carbon Dioxide Level 25 21-32 mmol/L Anion Gap 7.0 3-11 mmol/L Blood Urea Nitrogen 37 7-18 mg/dl Creatinine 2.00 0.60-1.40 mg/dl Est Creatinine Clear Calc Drug Dose 35.5 ml/min Estimated GFR () 37.8 Estimated GFR (Non- 32.6 BUN/Creatinine Ratio 18.6 10-20 Random Glucose 542 70-99 mg/dl Calcium Level 9.1 8.5-10.1 mg/dl Total Bilirubin 0.5 0.2-1 mg/dl Direct Bilirubin 0.2 0-0.2 mg/dl Aspartate Amino Transf (AST/SGOT) 9 15-37 U/L Alanine Aminotransferase (ALT/SGPT) 18 12-78 U/L Alkaline Phosphatase 63 45-117 U/L Total Protein 7.0 6.4-8.2 gm/dl Albumin 3.8 3.4-5.0 gm/dl Lipase 198 73-393 U/L Beta-Hydroxybutyric Acid 4.08 0.2-2.81 mg/dL Test 03/14/17 16:04 03/14/17 16:06 Range/Units EKG NSR, 84 bpm, no ST or T wave abnormality Impression Assessment and Plan HYPERGLYCEMIA In setting of DM type 2, uncontrolled per last A1c (9.6 in 08/2016) Likely secondary to medication non-compliance, dietary indiscretion, rule out infection- afebrile, +mild leukocytosis (WBC 13K) f/u CXR and UA AG normal, not in DKA Hold glipizide Start insulin drip and monitor electrolytes Consult pharmacy for glycemic control Check A1c art educator consult, also recommend podiatry referral as outpatient HYPOXIA Was placed on O2 nasal cannula in ER, was hypoxic to high 80's upon removal by REAL ESTATE ACQUISITION ANALYST Not on home O2- check CXR to r/o PNA given leukocytosis and c/o cough Continue supplemental O2 per protocol AXEL ON CKD STAGE III Creat is 2.0, baseline 1.2 Possibly secondary to dehydration; denies NSAID use Hold lisinopril Received 1 liter IVF's in ER- continue at 125 cc/hour Monitor renal function Avoid nephrotoxins when able URINARY RETENTION Unable to void today, bladder scan + urinary retention in ER- 1450 mL output on straight cath UA pending Bladder scan and straight cath PRN CHRONIC ANEMIA Hg is 10.9, was 11's back in 2013 Follow up as outpatient DYSLIPIDEMIA Continue statin DVT PROPHYLAXIS Heparin SQ CODE STATUS Full code per my discussion with the patient DISPOSITION Admission telemetry May need placement, lives alone, friend concerned he is unable to care for himself at home, and she is unable to care for him after discharge PT, OT, social service evaluation Follows with Dr. Ely Hernandez for primary care Patient seen in collaboration with Dr. Arevalo. Please see his addendum. VTE Prophylaxis VTE Risk Assessment Done? Y/N: Yes Risk Level: Moderate Note ATTENDING ADDENDUM Record reviewed. Patient interviewed and examined in ED. Care coordinated with Valentine Silvestre PA-C. Please refer to her documentation for patient's history. Briefly, 71 YO male with history of DM type 2, managed with glipizide. Has not take his glipizide for a few days. Had outpatient eye surgery planned for today; found to have blood sugar > 500 and was referred to ED. Pt notes blurred vision. Denies polyuria or polydipsia. EXAM: General- appears to be chronically ill, no acute distress VS- as noted HEENT- anicteric Neck- no JVD Lungs- clear Heart- RRR, II/ sys murmur at base Abdomen- + BS, soft, nontender, no masses or hepatosplenomegaly Rectal- prostate enlarged, nontender; no masses appreciated Extremities- no pretibial edema or calf tenderness; pedal pulses intact; no diabetic foot lesions Neuro- alert DATA: Random blood sugar 576. BUN 37, creat 2.0. Na 133. K 530. AG 7.0. BHG 4.08 UA 3+ glucose, otherwise negative. Other lab studies as noted. CXR reviewed- emphysematous changes, no infiltrates, effusions, CHF. EKG performed at 12:22 reviewed and demonstrated NSR at 84 / minute, no acute ST or T-wave changes.. ASSESSMENT AND PLAN: DM TYPE 2, POORLY CONTROLLED Sounds like chronic problems with glycemic management. Has not taken glipizide for past few days. Has tried metformin in the past, but apparently unable to take it. Not a candidate for insulin therapy. Started on insulin infusion in ED. Check Hgb A1C. Pharmacy consulted for glycemic management. ACUTE KIDNEY INJURY Serum creatinine 2, compared to 1.26 in 2015. Acute kidney injury could be secondary to hyperglycemia or obstructive uropathy. Hold lisinopril, then restart at reduced dose with caution if creatinine improves. Check renal US. URINARY RETENTION Patient reports that he typically only voids 1-3 times a day. Bladder scan in ED revealed bladder volume > 999 ml. Straight cath --> 1400 ml. Denies urgency, frequency, nocturia, dysuria, hematuria. Rectal exam reveals enlarged prostate. Straight cath PRN. Start tamsulosin if BP's OK. Consult Urology. Please refer to MITZY Silvestre's documentation for discussion of other issues. Cesar Arevalo MD . <Electronically signed by Valentine Silvestre PA-C> <Electronically signed by Cesar Arevalo M.D.> Signed: 03/14/171714 Signed: 03/14/172124 The status of this report is Signed * If report status is Draft, the document has not been finalized by the responsible provider. [facility]: [facility] History and Physical Template <AttendingPhy>Valeria Cruz M.D.</AttendingPhy><EDPhy>Haq, Theo M., DO</ EDPhy> <FamilyPhy>Ely Hernandez D.O.</FamilyPhy> <PrimaryPhy>Ely Hernandez D.O.</PrimaryPhy><UnitNumber>[id number]</UnitNumber><VisitNumber>[id number]< /VisitNumber><PatientName>ABDIEL MORATAYA</PatientName><DateOfBirth>1945</ DateOfBirth><Age>71</Age><Location>[facility]</Location><ServiceDate>03/14/17</ ServiceDate><CC>Cesar Arevalo M.D. Kopinski, Laura, D.O. McPhail, Jennifer A., PA-C</CC><MNE>[facility]</MNE> Addendum: 03/14/172126 Addendum: Cesar Arevalo M.D. on 03/14/17 @ 21:27 Addendum Section Blood sugars in ED initially > 500. Started on insulin infusion. Blood sugar fell to 68 by 19:25. Insulin infusion held. Pharmacy handling glycemic management. NovoLog coverage ordered for tonight. . <Electronically signed by Cesar Arevalo M.D.> 03/14/172126 Physical Exam (per Admitting): General Appearance: WD/WN, no apparent distress Head: normocephalic, atraumatic Eyes: + pertinent finding (right cornea appears opaque, left pupil reactive to light) ENT: hearing grossly normal, TMs normal, pharynx normal, + pertinent finding (almost edentulous, existing few teeth are in poor condition but no abscesses seen, no gum or tooth tenderness to palpation) Neck: supple, trachea midline Respiratory/Chest: lungs clear, normal breath sounds, no respiratory distress, no accessory muscle use, + pertinent finding (saturating well on 2 liters NC) Cardiovascular: regular rate, rhythm, no murmur Abdomen/GI: normal bowel sounds, non tender, soft Extremities/Musculoskelatal: no calf tenderness, no pedal edema, + pertinent finding (medial right chronic bony deformity. toenails are in poor repair, especially right 1st and 2nd digit. right 2nd toe mild erythema of entire toe, no swelling or tenderness.) Neurologic/Psych: alert, normal mood/affect, oriented x 3, + pertinent finding (sensation to light touch intact on bilateral feet) Skin: normal color, warm/dry Hospital Course Orthostatic Hypotension Significant drop in SBP but no change in Pulse and or symptoms Ambulation well No desaturation Will discharge Uncontrolled Diabetes Potential to get worse with DKA/Hyperosmolar state Last HbA1c A1c (9.6 in 08/2016) Likely secondary to medication non-compliance, dietary indiscretion, rule out infection- afebrile, +mild leukocytosis (WBC 13K) f/u CXR and UA Started on insulin drip and monitor electrolytes Consult pharmacy for glycemic control-appreciate input Check [id number] at 15 art educator consult, also recommend podiatry referral as outpatient Discharge to [facility] on Insulin today HYPOXIA-without any definite cause Was placed on O2 nasal cannula in ER, was hypoxic to high 80's upon removal by REAL ESTATE ACQUISITION ANALYST Not on home O2- check CXR to r/o PNA given leukocytosis and c/o cough Continue supplemental O2 per protocol Resolved Ambulating without any drop in Saturation AXEL ON CKD STAGE III Creat is 2.0, baseline 1.2 Possibly secondary to dehydration; No h/o NSAID use Hold lisinopril Received 1 liter IVF's in ER- continue at 125 cc/hour Avoid nephrotoxins when able Creatinine improving Will restart Lisinopril URINARY RETENTION Unable to void today, bladder scan + urinary retention in ER- 1450 mL output on straight cath UA pending-negative Likely secondary to BPH Bladder scan and straight cath PRN Urology consulted-appreciate Input S/P Bull placement and Flomax added Will need to see Urology in 1 week CHRONIC ANEMIA Hg is 10.9, was 11's back in 2013 Follow up as outpatient DYSLIPIDEMIA Continue statin DVT PROPHYLAXIS Heparin SQ CODE STATUS Full code per my discussion with the patient DISPOSITION Admission telemetry May need placement, lives alone, friend concerned he is unable to care for himself at home, and she is unable to care for him after discharge PT, OT, social service evaluation Follows with Dr. Ely Hernandez for primary care Discharge to [facility] today 03/18/17 Total time spent on discharge = 35 minutes This includes examination of the patient, discharge planning, medication reconciliation, and communication with other providers. Discharge Instructions Date of Service Mar 17, 2017. Admission Reason for Admission: Acute Kidney Injury, Hyperglycemia Discharge Discharge Diagnosis / Problem: Uncontrolled DM-started on Insulin,BPH s/p Bull placement Discharge Goals Goal(s): Prevent Disease Progression Activity Recommendations Activity Level: Assistance Required Therapies: Physical Therapy, Occupational Therapy . Additional Information Patient informed of condition: Yes Advance Directives: No DNR: No Level of Care: Skilled Communicable Disease: No Prognosis: Stable Oxygen at (LPM): 2 liters/min via NC as needed Bull Catheter: Yes (Please make an appointment with Dr Gentile in 1 week) Instructions / Follow-Up Instructions / Follow-Up Dr Gentile (Urology ) in 1 week.Pl make an appointment with your PCP within 1 week following discharge from the facility Current Hospital Diet Patient's current hospital diet: Diabetes Type 2 Diet, AHA Diet (Heart Healthy) Discharge Diet Recommended Diet: AHA Diet (Heart Healthy), Diabetes Type 2 Diet Pending Studies Studies pending at discharge: no Physician Orders On Transfer POLST Discussion: Not Applicable Laboratory Results Hemoglobin A1c Test 03/15/17 05:37 Range/Units Estimated Average Glucose 384 mg/dl Hemoglobin A1c 15.0 H 4.5-5.6 % Medical Emergencies . Who to Call and When: Medical Emergencies: If at any time you feel your situation is an emergency, please call 911 immediately. . Non-Emergent Contact Non-Emergency issues call your: Primary Care Provider . Past History Medical & Surgical History: (1) BPH (benign prostatic hyperplasia) (2) Benign hypertension (3) Diabetes mellitus type 2 (4) GERD (gastroesophageal reflux disease) (5) AXEL (acute kidney injury) (6) S/P tonsillectomy (7) H/O skin graft . "Provider Documentation" section prepared by Valeria Cruz. . Core Measure Problem Core Measures: None <Electronically signed by Valeria Cruz M.D.> Signed: 03/17/17 [id number] Additional Copies To Ely Hernandez D.O.
== END 2017-03-19 10:20 | DRG 638 ==
LOC: EDBD 12:12 → C.EDC 12:14 → C.MED 16:04 → ENRESERV 16:54
PROVIDERS: ADMIT Hospitalist; ATTEND Internal Medicine
DX: E11.65 Type 2 diabetes mellitus with hyperglycemia (principal); N17.9 Acute kidney failure, unspecified; N18.3 Chronic kidney disease, stage 3 (moderate); N40.1 Benign prostatic hyperplasia with lower urinary tract symptoms; D72.829 Elevated white blood cell count, unspecified; R33.9 Retention of urine, unspecified; E78.5 Hyperlipidemia, unspecified; I95.1 Orthostatic hypotension; D64.9 Anemia, unspecified; R09.02 Hypoxemia; Z91.14 Patient's other noncompliance with medication regimen; Z79.82 Long term (current) use of aspirin; Z79.899 Other long term (current) drug therapy; Z79.84 Long term (current) use of oral hypoglycemic drugs; Z83.3 Family history of diabetes mellitus; H18.891 Other specified disorders of cornea, right eye; I12.9 Hypertensive chronic kidney disease with stage 1 through stage 4 chronic kidney disease, or unspecified chronic kidney disease

== ENCOUNTER → 2017-03-14 | Day surgery (SDC) | payer OTHER ==
[2017-02-08 16:39] VITALS: Ht 182.9 cm; Wt 77.3 kg
[~2017-03-14] VITALS: Ht 182.9 cm; Wt 77.3 kg
[~2017-03-14] MED LIST changes: +ASPI81TA21 PO; +ATROPINE SULFATE 0.1 MG/ML 5ML SYR IV PRN; +EpHEDrine SULFATE INJ 50 MG/ML AMP IV PRN; +EpINEphrine HCL INJ 1 MG/ML 5ML SYRINGE ONE; +EpINEphrine INJ 1MG/ML AMP 1 MG/ML AMP ONE; +FLM4 PO; +GABA-112 PO; +INSDGIPEN SC; +LACTATED RINGER'S 1000ML 500 ML IV SCH; +LIDOCAINE 3.5% OPH GEL PER APPLICATION CHARGE OPR SCH; +LIDOCAINE 4% OP SOLN DROP CHARGE OPR SCH; +LIDOCAINE HCL 1% MPF 2 ML VIAL ONE; +LISI-461 PO; +LISI-725 PO; -LISI20TA3 PO; +MIDAZOLAM HCL 1 MG/ML 2ML VIAL ONE; +MULT-506 PO; +POVIDONE-IODINE OP SOLN 30 ML BTL ONE; +PROPARACAINE 0.5% OP SOLN PER DROP CHARGE OPR SCH; +PRS5 PO
[2017-03-14] MEDS: MOXIFLOXACIN OPH SOLN PER DROP CHARGE OPR SCH ×3 (11:01→11:21)
[2017-03-14 11:07] VITALS: BP 91/57; PULSE 99; TEMP 36.7; O2SAT 98
--- NOTE | 2017-03-14 11:47 | History & Physical Bridge - SC ---
H&P Re-Evaluation Bridge Note: Patient's blood glucose above 500 today. Patient to ER for management. Patient will call to reschedule.
--- NOTE | 2017-03-14 11:55 | Anesthesiology Progress Note ---
Anesthesia Progress Note Date of Service Mar 14, 2017. Progress Notes Pt was scheduled for right eye corneal biopsy. Upon admission, the pt's blood sugar was 586. The pt and his animal behaviorist had conflicting reports as to whether he took his glipizide this morning. He does not routinely check his blood sugars. Vital signs were BP 91/57, P 99, R 18, and O2 sat 98% on RA. The pt denied any symptoms that included CP, SOB, or dizziness. I spoke with the pt, his animal behaviorist, and Dr. Root that the procedure would need to be rescheduled, and he would need to go to the [facility] emergency room for further care. All parties were understanding. I spoke with the ER charge nurse, and I gave report of the pt's status. The pt will be taken to the ER by ambulance transport.
== END | disposition short-term general hospital (02) ==
LOC: X.SURG 10:48
PROVIDERS: ATTEND Ophthalmology
DX: H18.891 Other specified disorders of cornea, right eye (principal); E11.65 Type 2 diabetes mellitus with hyperglycemia; I10 Essential (primary) hypertension; Z53.8 Procedure and treatment not carried out for other reasons

== ENCOUNTER → 2017-05-09 | Outpatient (CLI) | payer OTHER ==
[~2017-05-09] MED LIST changes: +ACET-1256 PO; +ALBU18002 INH; +AMLO-110 PO; +ATOR10TA82 PO; -ATOR10TA88 PO; +BCTRO EXT; +FLM4 PO; -GLIP1TAB85 PO; +INSDGI SC; +INSDGIPEN SC; +INSHNI SC; +INSPMPRGR SC; -LISI-461 PO; +LISI-725 PO; -MULT-506 PO; +NVLGIPEN SC; +POLY1POW PO; +PRS5 PO; +SENN8.6T7 PO; +VANC1INJ94 IV; +ZINC40OI13 TOP
[2017-05-09 15:44] LABS: BLOOD UREA NITROGEN 33 mg/dl (7-18); BUN/CREATININE RATIO 17.9 (10-20); CARBON DIOXIDE 26 mmol/L (21-32); CHLORIDE 104 mmol/L (98-107); CREATININE 1.85 mg/dl (0.60-1.40); GLUCOSE 209 mg/dl (70-99); POTASSIUM 5.2 mmol/L (3.5-5.1); SODIUM 136 mmol/L (136-145)
--- NOTE | 2017-05-23 08:01 | CODING QUERY MEDICAL NECESSITY ---
SUPPORTING DIAGNOSIS NEEDED A supporting diagnosis is required for the test/procedure performed on this patient in order for us to be reimbursed by the patient's insurance. Please provide a supporting diagnosis for the following test/procedure listed below next to the test name along with your signature. *If there is no additional diagnosis for this patient that would support the following test/procedure please document that below next to the test/procedure. Test(s)/Procedure(s) that require a supporting diagnosis: * PARTIAL RENAL PROFILE DIAGNOSIS: Provider Signature: Date: Thank you Fany Chacon [employer] Once completed, please kindly fax back to [phone] For questions please call [phone]
== END ==
LOC: C.LABSPEC 15:21
PROVIDERS: ATTEND Internal Medicine
DX: N18.9 Chronic kidney disease, unspecified (principal)

== ENCOUNTER 2017-05-19 11:00 | Inpatient (IN) | payer OTHER ==
[~2017-05-19] VITALS: Ht 182.9 cm; Wt 79.5 kg
[~2017-05-19 11:00] MED LIST changes: -ACET-1256 PO; -ALBU18002 INH; -AMLO-110 PO; -BCTRO EXT; -INSDGI SC; -INSHNI SC; -INSPMPRGR SC; -NVLGIPEN SC; -POLY1POW PO; -SENN8.6T7 PO; -VANC1INJ94 IV; -ZINC40OI13 TOP
[2017-05-19] MEDS ORDERED: SODIUM CHLORIDE 0.9% 1000ML 1,000 ML IV STA ×2 (11:17→12:52)
[2017-05-19 11:39] LABS: HEMATOCRIT 25.5 % (42-52); MEAN CORPUSCULAR HEMOGLOBIN 26.6 pg (25-34); MEAN CORPUSCULAR HGB CONC 30.6 g/dl (32-36); MEAN PLATELET VOLUME 9.6 fL (7.4-10.4); PLATELET COUNT 265 K/uL (130-400); RED BLOOD COUNT 2.93 M/uL (4.7-6.1); WHITE BLOOD COUNT 25.75 K/uL (4.8-10.8)
[2017-05-19 11:45] LABS: INR 1.1 (0.9-1.1); PARTIAL THROMBOPLASTIN RATIO 1.1; PROTHROMBIN TIME (PATIENT) 11.4 SECONDS (9.0-12.0)
[2017-05-19 11:49] LABS: ALT/SGPT 19 U/L (12-78); AST/SGOT 16 U/L (15-37); BLOOD UREA NITROGEN 40 mg/dl (7-18); BUN/CREATININE RATIO 18.6 (10-20); CALCIUM 8.1 mg/dl (8.5-10.1); CARBON DIOXIDE 23 mmol/L (21-32); CHLORIDE 102 mmol/L (98-107); CREATININE 2.17 mg/dl (0.60-1.40); GLUCOSE 322 mg/dl (70-99); POTASSIUM 4.8 mmol/L (3.5-5.1); SODIUM 133 mmol/L (136-145)
[2017-05-19 11:53] LABS: ALKALINE PHOSPHATASE 98 U/L (45-117)
[2017-05-19 12:00] LABS: BETA-HYDROXYBUTYRATE 2.43 mg/dL (0.2-2.81)
[2017-05-19 12:07] LABS: BASO % 0.1 %; BASO ABS # 0.02 K/uL (0-0.2); COMPLETE YES; EOS % 0.1 %; HYPOCHROMIA PRESENT; IG% 0.6 %; LYMPH % 1.8 %; LYMPH ABS # 0.47 K/uL (1.2-3.4); MONO % 4.3 %; NEUT % 93.1 %; PLT ESTIMATE NORMAL
--- NOTE | 2017-05-19 12:07 | DIAGNOSTIC IMAGING REPORT ---
CT HEAD WITHOUT CONTRAST (CT) CLINICAL HISTORY: fall, confusion HEAD PAIN COMPARISON STUDY: No previous studies for comparison. TECHNIQUE: Axial CT of the brain is performed from the vertex to the skull base. IV contrast was not administered for this examination. A dose lowering technique was utilized adhering to the principles of ALARA. CT DOSE: 614.27 mGy.cm FINDINGS: No intra or extra-axial mass lesions are visualized. There is no CT evidence of acute cortical infarction. There is no evidence of midline shift. There is no acute hemorrhage. No calvarial fractures are visualized. There are minimal white matter hypodensities likely on a small vessel basis. There is basal ganglial mineralization. There is no evidence of pathologic ventricular dilatation. There is no evidence of acute sinusitis IMPRESSION: No acute intracranial findings Electronically signed by: Dashawn Carrasco M.D. 05/19/2017 12:06 PM Dictated Date/Time: 05/19/2017 12:05 PM
--- NOTE | 2017-05-19 12:09 | DIAGNOSTIC IMAGING REPORT ---
CHEST ONE VIEW PORTABLE CLINICAL HISTORY: Weakness COMPARISON STUDY: 03/14/2017 FINDINGS: The heart is normal in size. There is aortic tortuosity/ectasia. There is diffuse elevation of the interstitium. Pulmonary vascular congestion is suspected. A bilateral interstitial inflammatory process could appear similar but is felt to be less likely. Clinical and radiographic follow-up is recommended. There are no pleural effusions.[ IMPRESSION: Diffuse elevation of the interstitium. This likely represents pulmonary vascular congestion although a bilateral interstitial inflammatory process could appear similar. Clinical and radiographic follow-up is recommended. Electronically signed by: Dashawn Carrasco M.D. 05/19/2017 12:08 PM Dictated Date/Time: 05/19/2017 12:07 PM
[2017-05-19] MEDS ORDERED: ACET-1256 PO ×2 (12:25)
[2017-05-19] MEDS ORDERED: ALBU18002 INH ×2 (12:25)
[2017-05-19] MEDS ORDERED: POLY1POW PO ×2 (12:25)
[2017-05-19] MEDS ORDERED: AMLO-110 PO ×2 (12:25)
[2017-05-19] MEDS ORDERED: INSDGI SC (12:25)
[2017-05-19] MEDS ORDERED: ZINC40OI13 TOP (12:25)
[2017-05-19] MEDS ORDERED: INSHNI SC (12:25)
[2017-05-19] MEDS ORDERED: SODIUM CHLORIDE 0.9% 500ML 500 ML IV STA (12:37)
[2017-05-19] MEDS ORDERED: LEVAQUIN 750MG / 150ML D5W IV STA (12:39)
[2017-05-19] MEDS ORDERED: VANCOMYCIN INJ 1,500 MG in SODIUM CHLORIDE 0.9% 500ML 500 ML IV STA (12:40)
[2017-05-19 13:30] VITALS: O2SAT 96; BMI 21.7
[2017-05-19] MEDS ORDERED: CONSULT PHARMACY STA (13:57)
[2017-05-19] MEDS ORDERED: GLUCOSE 10 TABS/TUBE PO PRN (14:00)
[2017-05-19] MEDS ORDERED: DEXTROSE 50% 50 ML SYR IV PRN (14:00)
[2017-05-19] MEDS ORDERED: GLUCAGON FOR INJ 1 MG VIAL SQ PRN (14:00)
[2017-05-19] MEDS ORDERED: GLUCOSE 40% GEL 15 GM TUBE PO PRN (14:00)
[2017-05-19] MEDS ORDERED: ACETAMINOPHEN 325 MG TAB PO PRN (14:00)
[2017-05-19] MEDS ORDERED: ONDANSETRON INJ 2 MG/ML 2 ML VIAL IV PRN (14:00)
[2017-05-19] MEDS ORDERED: SODIUM CHLORIDE 0.9% 1000ML 1,000 ML IV SCH (14:00)
--- NOTE | 2017-05-19 14:39 | History and Physical ---
History & Physical Date & Time of Service: May 19, 2017 at 14:20 Chief Complaint: Illness/Poss Uti Primary Care Physician: Ely Hernandez D.O. History of Present Illness Source: patient, clinic records, hospital records, longterm This is a 71yo M who resides at [facility] with a PMH of DM II (uncontrolled) , HTN, HLD, CKD III and urinary retention (with a english) who presents with dysuria, penile pain and generalized weakness. Per longterm and patient, urinary symptoms have been present for a few days. Has had an indwelling english catheter for the past month, which was changed 48 hours ago when the nurses noticed penile discharge. Patient was transferring from his wheelchair to his bed today when he lost his balance and fell backward and hit his head. Was brought to ER for further evaluation. Patient is A&O x4 despite endorsing intermittent confusion. Was found to have an elevated white count of 25,000 and was hypoxic on room air. Now O2 saturation is in the high 90s on 2L NC. Denies using oxygen at [facility]. States that he still has a cough and nasal congestion from a URI last week. Denies any fever, chills, lightheadedness, visual changes, sore throat, CP, palpitations, SOB, abd pain, nausea, vomiting or LE swelling. Past Medical/Surgical History Medical Problems: (1) Benign hypertension Status: Chronic (2) BPH (benign prostatic hyperplasia) Status: Chronic (3) CKD (chronic kidney disease), stage III Status: Chronic (4) Diabetes mellitus type 2 Status: Chronic (5) GERD (gastroesophageal reflux disease) Status: Chronic (6) Hyperlipidemia Status: Chronic Surgical Problems: (1) H/O skin graft Status: Chronic (2) S/P tonsillectomy Status: Chronic Family History Diabetes mellitus SISTER Hypertension MOTHER Social History Smoking Status: Former Smoker Drug Use: none Marital Status: Housing status: longterm Occupational Status: retired Immunizations History of Influenza Vaccine: Yes Influenza Vaccine Date: Mar 22, 2012 History of Tetanus Vaccine?: Unknown History of Pneumococcal: Yes Pneumococcal Date: Apr 02, 2012 History of Hepatitis B Vaccine: No Multi-Drug Resistant Organisms History of MDRO: No Allergies Coded Allergies: No Known Allergies (Unverified , 05/19/17) Home Medications Scheduled Albuterol Sulfate (Proair Respiclick), 2 PUFFS INH QID Amlodipine (Norvasc), 5 MG PO DAILY Aspirin Enteric Coated (Ecotrin Or Generic), 81 MG PO QAM Atorvastatin (Lipitor), 10 MG PO DAILY Finasteride (Finasteride), 5 MG PO QAM Gabapentin (Neurontin), 100 MG PO DAILY Insulin Glargine (Lantus), 40 UNITS SC DAILY Tamsulosin HCl (Tamsulosin HCl), 0.4 MG PO HS Zinc Oxide (Topical) (Desitin), 1 APPLN TOP HS Scheduled PRN Acetaminophen (Tylenol), 500 MG PO Q4 PRN for Pain Insulin Human NPH (Humulin N), SC UD PRN for SLIDING SCALE Polyethylene Glycol 3350 (Qc Natura-Lax), 17 GM PO DAILY PRN for Constipation Review of Systems Ten systems reviewed and negative except as noted in the HPI. 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 Marked pain when nurse irrigated english. + pyuria ) Back: normal inspection Extremities/Musculoskelatal: normal inspection, no calf tenderness, no pedal edema, non-tender Neurologic/Psych: no motor/sensory deficits, alert, normal mood/affect, oriented x 3 Skin: normal color, warm/dry Diagnostics Laboratory Results Results Past 24 Hours Test 05/19/17 10:44 05/19/17 11:45 Range/Units White Blood Count 25.75 4.8-10.8 K/uL Red Blood Count 2.93 4.7-6.1 M/uL Hemoglobin 7.8 14.0-18.0 g/dL Hematocrit 25.5 42-52 % Mean Corpuscular Volume 87.0 80-100 fL Mean Corpuscular Hemoglobin 26.6 25-34 pg Mean Corpuscular Hemoglobin Concent 30.6 32-36 g/dl Platelet Count 265 130-400 K/uL Mean Platelet Volume 9.6 7.4-10.4 fL Neutrophils (%) (Auto) 93.1 % Lymphocytes (%) (Auto) 1.8 % Monocytes (%) (Auto) 4.3 % Eosinophils (%) (Auto) 0.1 % Basophils (%) (Auto) 0.1 % Neutrophils # (Auto) 23.97 1.4-6.5 K/uL Lymphocytes # (Auto) 0.47 1.2-3.4 K/uL Monocytes # (Auto) 1.11 0.11-0.59 K/uL Eosinophils # (Auto) 0.02 0-0.5 K/uL Basophils # (Auto) 0.02 0-0.2 K/uL RDW Standard Deviation 44.7 36.4-46.3 fL RDW Coefficient of Variation 14.1 11.5-14.5 % Immature Granulocyte % (Auto) 0.6 % Immature Granulocyte # (Auto) 0.16 0.00-0.02 K/uL Platelet Estimate NORMAL Hypochromasia PRESENT Prothrombin Time 11.4 9.0-12.0 SECONDS Prothromb Time International Ratio 1.1 0.9-1.1 Activated Partial Thromboplast Time 28.5 21.0-31.0 SECONDS Partial Thromboplastin Ratio 1.1 Sodium Level 133 136-145 mmol/L Potassium Level 4.8 3.5-5.1 mmol/L Chloride Level 102 98-107 mmol/L Carbon Dioxide Level 23 21-32 mmol/L Anion Gap 8.0 3-11 mmol/L Blood Urea Nitrogen 40 7-18 mg/dl Creatinine 2.17 0.60-1.40 mg/dl Est Creatinine Clear Calc Drug Dose 32.0 ml/min Estimated GFR () 34.2 Estimated GFR (Non- 29.5 BUN/Creatinine Ratio 18.6 10-20 Random Glucose 322 70-99 mg/dl Calcium Level 8.1 8.5-10.1 mg/dl Magnesium Level 2.0 1.8-2.4 mg/dl Total Bilirubin 0.5 0.2-1 mg/dl Direct Bilirubin 0.2 0-0.2 mg/dl Aspartate Amino Transf (AST/SGOT) 16 15-37 U/L Alanine Aminotransferase (ALT/SGPT) 19 12-78 U/L Alkaline Phosphatase 98 45-117 U/L Troponin I < 0.015 0-0.045 ng/ml Total Protein 7.2 6.4-8.2 gm/dl Albumin 2.7 3.4-5.0 gm/dl Lipase 98 73-393 U/L Beta-Hydroxybutyric Acid 2.43 0.2-2.81 mg/dL Thyroid Stimulating Hormone (TSH) 3.270 0.300-4.500 uIu/ml Bedside Lactic Acid Venous 1.09 0.90-1.70 mmol/L Microbiology Results 05/19/17 Blood Culture, Received Pending 05/19/17 Blood Culture, Received Pending Diagnostic Radiology CT head: IMPRESSION: No acute intracranial findings CXR: IMPRESSION: Diffuse elevation of the interstitium. This likely represents pulmonary vascular congestion although a bilateral interstitial inflammatory process could appear similar. Clinical and radiographic follow-up is recommended. EKG Accelerated Junctional rhythm Abnormal ECG Impression Assessment and Plan This is a 71yo M who resides at [facility] with a PMH of DM II (uncontrolled) , HTN, HLD, CKD III and urinary retention (with a english) who presents with dysuria, penile pain and generalized weakness. Sepsis 2/2 UTI, PNA: -Initially hypotensive at 93/63, tachycardic at 110 -BP normotensive, HR improved after IVF resuscitation -Leukocytosis of 25, POC Lactate of 1.09 -Urinary source of infection, as well as likely PNA -Empiric abx treatment initiated with vanc, levoquin -Blood and urine cx pending -IVF resuscitation -Monitor on tele UTI: -UA with large amount of leuk esterase, nitrite -Likely 2/2 urinary retention, english in place senior care -Empiric abx treatment initiated with vanc, levoquin Hypoxia 2/2 PNA: -Hypoxic in ER in high 80s on RA -CXR with bilateral interstitial process vs. pulm vasc congestion -O2 saturation improved to high 90s on 2L NC -Does not require home O2 -Continue supplemental O2 per protocol AXEL on CKD III: -Cr elevated to 2.17 (baseline is 1.2) -Likely multifactorial: poor PO intake in addition to possible obstruction 2/2 BPH, urinary retention -Denies NSAID use -Received 2 L in ER. Continuing at 125ml/hr for 1 addition L -Renally dose abx -Monitor BMP Urinary retention: H/o BPH -Was not voiding in ER despite IVF resuscitation -Complaining of pain during english irrigation -Cont tamsulosin, finasteride -Urology consult Chronic anemia: -Hgb of 7.8 today. Was 11.3 in Mar -+ weakness, fatigue. Denies palpitations, CP, SOB -Denies hematuria, blood per rectum -Hemoccult pending -Type and screen -Transfuse if hgb <7 -Recheck H&H this evening DM II: -Hgb a1c of 9/6 on 08/20 -Recheck hgb a1c -BSG of 322 in ER -Hold home regimen -Basal bolus regimen while in-patient -Pharm consult due to fluctuating BSG at longterm HTN: -Normotensive -Cont home amlodipine with hold parameters HLD: -Continue statin DVT Ppx: Heparin SQ Code status: FULL PCP: David Dispo: SW consulted to help with discharge placement back to [facility] Patient seen in collaboration with Dr. Thakkar. Please see addendum. Addendum Attending physician Dr. Thakkar: I have seen and examined the with MITZY Snider and agree with assessment and plan above and would like to comment that this a patient with vital signs and leukocytosis concerning for sepsis with urinary source as the most likely source of infection given his history of chronic english use. Cultures pending, appreciate urology service recommendations. Patient also noted to be having worsening renal function over time and more anemic. Possibly the anemia could be due to renal disease versus anemia from chronic illness. Will trend H/H and maintain active type and screen. Level of Care Telemetry Advanced Directives Existing Living Will: No Existing Power of Legal Billing Specialist: No Resuscitation Status FULL RESUSCITATION VTE Prophylaxis VTE Risk Assessment Done? Y/N: Yes Risk Level: Moderate Given or contraindicated: Unfractionated heparin SQ Social Service Consult Lives in Jail
[2017-05-19] MEDS ORDERED: LEVOFLOXACIN CONSULT ACTIVE PRN (14:45)
[2017-05-19] MEDS ORDERED: VANCOMYCIN CONSULT ACTIVE PRN (14:45)
[2017-05-19 15:09] VITALS: BP 115/67; PULSE 99; TEMP 37.4; O2SAT 96
[2017-05-19 15:17] LABS: URINE APPEARANCE CLOUDY (CLEAR); URINE BILIRUBIN NEG (NEG); URINE COLOR YELLOW; URINE EPITHELIAL CELL AUTO 0-5 /lpf (0-5); URINE NITRITE POS (NEG); URINE SPECIFIC GRAVITY 1.015 (1.000-1.030); UROBILINOGEN NEG (NEG)
--- NOTE | 2017-05-19 15:24 | Pharmacy Progress Note ---
Pharmacy Antibiotic Consult Date of Service: May 19, 2017. Pharmacy Dosing Scope Pharmacy is consulted to initiate vancomycin/levaquin IV dosing therapy, order appropriate labs and adjust drug dose/frequency. Subjective The patient is a 71 year old male admitted on May 19, 2017 at 13:48. Objective Height (Feet): 6 Height (Inches): 0.00 Weight (Kilograms): 72.500 Lab Results (24hrs): Test 05/19/17 10:44 05/19/17 11:45 05/19/17 14:20 White Blood Count 25.75 K/uL (4.8-10.8) Red Blood Count 2.93 M/uL (4.7-6.1) Hemoglobin 7.8 g/dL (14.0-18.0) Hematocrit 25.5 % (42-52) Mean Corpuscular Volume 87.0 fL (80-100) Mean Corpuscular Hemoglobin 26.6 pg (25-34) Mean Corpuscular Hemoglobin Concent 30.6 g/dl (32-36) Platelet Count 265 K/uL (130-400) Mean Platelet Volume 9.6 fL (7.4-10.4) Neutrophils (%) (Auto) 93.1 % Lymphocytes (%) (Auto) 1.8 % Monocytes (%) (Auto) 4.3 % Eosinophils (%) (Auto) 0.1 % Basophils (%) (Auto) 0.1 % Neutrophils # (Auto) 23.97 K/uL (1.4-6.5) Lymphocytes # (Auto) 0.47 K/uL (1.2-3.4) Monocytes # (Auto) 1.11 K/uL (0.11-0.59) Eosinophils # (Auto) 0.02 K/uL (0-0.5) Basophils # (Auto) 0.02 K/uL (0-0.2) RDW Standard Deviation 44.7 fL (36.4-46.3) RDW Coefficient of Variation 14.1 % (11.5-14.5) Immature Granulocyte % (Auto) 0.6 % Immature Granulocyte # (Auto) 0.16 K/uL (0.00-0.02) Platelet Estimate NORMAL Hypochromasia PRESENT Prothrombin Time 11.4 SECONDS (9.0-12.0) Prothromb Time International Ratio 1.1 (0.9-1.1) Activated Partial Thromboplast Time 28.5 SECONDS (21.0-31.0) Partial Thromboplastin Ratio 1.1 Sodium Level 133 mmol/L (136-145) Potassium Level 4.8 mmol/L (3.5-5.1) Chloride Level 102 mmol/L (98-107) Carbon Dioxide Level 23 mmol/L (21-32) Anion Gap 8.0 mmol/L (3-11) Blood Urea Nitrogen 40 mg/dl (7-18) Creatinine 2.17 mg/dl (0.60-1.40) Est Creatinine Clear Calc Drug Dose 32.0 ml/min Estimated GFR () 34.2 Estimated GFR (Non- 29.5 BUN/Creatinine Ratio 18.6 (10-20) Random Glucose 322 mg/dl (70-99) Calcium Level 8.1 mg/dl (8.5-10.1) Magnesium Level 2.0 mg/dl (1.8-2.4) Total Bilirubin 0.5 mg/dl (0.2-1) Direct Bilirubin 0.2 mg/dl (0-0.2) Aspartate Amino Transf (AST/SGOT) 16 U/L (15-37) Alanine Aminotransferase (ALT/SGPT) 19 U/L (12-78) Alkaline Phosphatase 98 U/L (45-117) Troponin I < 0.015 ng/ml (0-0.045) Pro-B-Type Natriuretic Peptide 1170 pg/ml (0-900) Total Protein 7.2 gm/dl (6.4-8.2) Albumin 2.7 gm/dl (3.4-5.0) Lipase 98 U/L (73-393) Beta-Hydroxybutyric Acid 2.43 mg/dL (0.2-2.81) Procalcitonin 21.76 ng/ml (0-0.5) Thyroid Stimulating Hormone (TSH) 3.270 uIu/ml (0.300-4.500) Bedside Lactic Acid Venous 1.09 mmol/L (0.90-1.70) Micro Results: Date/Time Source Procedure Growth Status 05/19/17 11:46 Blood Blood Culture Pending Received 05/19/17 11:41 Blood Blood Culture Pending Received Assessment & Plan Assessment: 71 yo male from assisted with PMH of DMII, HTN, HLD, CKDII and urinary retention (baseline Cr 1.2) presented with dysuria, penile pain and generalized weakness, SOB. Bull last changed 48 hours ago. WBC 25, Afebrile. Vancomycin/ levaquin for possible pna/uti. Plan: Loading dose: 1500 mg (20.6 mg/kg) IV X 1 dose then: Vancomycin 1250 mg (17mg/kg) q24H PK: SCr 2.17, CrCl 32, T1/2~22 hours Reassess in AM with anticipated improved renal function Goal trough level estimate: between 15-20 mcg/mL. Will reassess in AM and determine dosing. Will wait to order trough due to possible changing renal function. Pharmacy will continue to follow and will adjust dose/frequency as necessary. Thank you
[2017-05-19 15:26] LABS: MANUAL MICROSCOPIC REQUIRED? NO; REVIEW REQ? YES
[2017-05-19] MEDS ORDERED: PHARMACY GLYCEMIC MGMT CONSULT SCH (15:42)
[2017-05-19 16:00] VITALS: O2SAT 95
--- NOTE | 2017-05-19 16:37 | DIAGNOSTIC IMAGING REPORT ---
KUB HISTORY: History of urinary retention. Concern for possible acute hydronephrosis. R/o hydronephrosis COMPARISON: Renal ultrasound 03/15/2017. FINDINGS: Mildly dilated loops of small bowel are seen within the midabdomen measuring up to 3.2 cm with air also noted throughout the colon. Moderate to extensive volume of formed stool seen throughout the colon. There is no organomegaly. No renal calculi. No ureteral calculi. No pneumoperitoneum or pneumatosis. No fracture. Degenerative changes of the pelvis, hips and spine are noted. Vascular calcifications are seen. Probable phleboliths. IMPRESSION: 1. No definite urolith identified, however renal shadows are obscured by bowel gas. 2. Moderate to extensive volume of formed colonic stool throughout suggests constipation. 3. Mildly dilated loops of small bowel within the midabdomen suggest ileus or low-grade small bowel obstruction. Electronically signed by: Dejan Grier M.D. 05/19/2017 4:36 PM Dictated Date/Time: 05/19/2017 4:34 PM
[2017-05-19] MEDS ORDERED: ALBUTEROL HFA INHALER 8.5 GM INH SCH (17:00)
[2017-05-19] MEDS: ALBUTEROL HFA 8 GM INHALER INH SCH ×2 (17:17→21:37)
[2017-05-19] MEDS: INSULIN ASPART 100 UNITS/ML 3 ML PEN SC SCH ×2 (17:19→21:00)
[2017-05-19 18:00] LABS: HEMATOCRIT 24.2 % (42-52); MEAN CELL VOLUME 86.7 fL (80-100); MEAN CORPUSCULAR HEMOGLOBIN 27.2 pg (25-34); MEAN PLATELET VOLUME 8.6 fL (7.4-10.4); PLATELET COUNT 227 K/uL (130-400); RED BLOOD COUNT 2.79 M/uL (4.7-6.1); WHITE BLOOD COUNT 20.66 K/uL (4.8-10.8)
[2017-05-19 18:08] LABS: MEAN CORPUSCULAR HGB CONC 31.4 g/dl (32-36)
--- NOTE | 2017-05-19 18:08 | EMERGENCY ROOM VISIT NOTE ---
History Report prepared by Kirill: Wil Figueroa Under the Supervision of: Dr. Cesar Hernández M.D. First contact with patient: 11:17 Chief Complaint: WEAKNESS Stated Complaint: ILLNESS/POSS UTI History of Present Illness The patient is a 71 year old male who presents to the Emergency Room with complaints of persistent weakness that began several days ago. The patient states that he had a Bull catheter placed at his shelter. Per nursing notes that the patient arrives via ALS from [facility]. Nursing notes report that the patient has had penile discharge and urinary symptoms. Nursing staff notes that the patient had a Bull catheter placed 1 month ago and had it changed out two days ago. Nursing notes report that the patient has been weak, dizzy, and disoriented. The patient states that he fell today and hit his head. He states that his breathing has been okay and notes no difference with the nasal cannula oxygen. Nursing notes report that the patient had a lowgrade fever on Tuesday. Pt denies LOC, headache, chills, diaphoresis, visual changes, neck pain, chest pain, nausea, vomiting, abdominal pain, back pain, numbness, lymphadenopathy, rash, or other complaints. Source of History: patient Onset: several days ago Position: other (global) Quality: other (weakness) Timing: other (persistent) Associated Symptoms: + fevers Note: Associated symptoms: dizzy, disoriented Review of Systems See HPI for pertinent positives and negatives. A total of ten systems were reviewed and were otherwise negative. Past Medical & Surgical Medical Problems: (1) Benign hypertension (2) BPH (benign prostatic hyperplasia) (3) CKD (chronic kidney disease), stage III (4) Diabetes mellitus type 2 (5) GERD (gastroesophageal reflux disease) (6) Hyperlipidemia Surgical Problems: (1) H/O skin graft (2) S/P tonsillectomy Family History Diabetes mellitus SISTER Hypertension MOTHER Social History Smoking Status: Former Smoker Alcohol Use: none Drug Use: none Marital Status: Housing Status: lives alone Occupation Status: retired Current/Historical Medications Scheduled Albuterol Sulfate (Proair Respiclick), 2 PUFFS INH QID Amlodipine (Norvasc), 5 MG PO DAILY Aspirin Enteric Coated (Ecotrin Or Generic), 81 MG PO QAM Atorvastatin (Lipitor), 10 MG PO DAILY Finasteride (Finasteride), 5 MG PO QAM Gabapentin (Neurontin), 100 MG PO DAILY Insulin Glargine (Lantus), 40 UNITS SC DAILY Tamsulosin HCl (Tamsulosin HCl), 0.4 MG PO HS Zinc Oxide (Topical) (Desitin), 1 APPLN TOP HS Scheduled PRN Acetaminophen (Tylenol), 500 MG PO Q4 PRN for Pain Insulin Human NPH (Humulin N), SC UD PRN for SLIDING SCALE Polyethylene Glycol 3350 (Qc Natura-Lax), 17 GM PO DAILY PRN for Constipation Allergies Coded Allergies: No Known Allergies (Unverified , 05/19/17) Physical Exam Vital Signs Date Time Temp Pulse Resp B/P (MAP) Pulse Ox O2 Delivery O2 Flow Rate FiO2 05/19/17 13:31 109/67 05/19/17 13:30 96 Nasal Cannula 2.0 05/19/17 13:30 102 18 96 Nasal Cannula 2.0 05/19/17 13:00 102 18 108/63 98 Nasal Cannula 2.0 05/19/17 12:30 103 18 103/65 97 Nasal Cannula 2.0 05/19/17 12:19 104 18 109/65 96 Nasal Cannula 2.0 05/19/17 12:18 109/65 05/19/17 11:30 108 18 108/66 97 Nasal Cannula 2.0 05/19/17 11:30 108 18 108/66 97 05/19/17 11:10 96/63 05/19/17 11:10 109 05/19/17 11:01 95 Nasal Cannula 2.0 05/19/17 11:00 87 Room Air 05/19/17 11:00 37.4 110 18 96/63 87 Room Air 05/19/17 11:00 37.4 110 18 96/63 87 Room Air Physical Exam GENERAL: Awake, alert, well-appearing, in no distress HENT: Mild occipital contusion. Oropharynx unremarkable. EYES: Normal conjunctiva. Sclera non-icteric. Cornea opacified on the right NECK: Supple. No nuchal rigidity. FROM. No JVD. RESPIRATORY: Clear to auscultation. CARDIAC: Borderline tachycardic rate, normal rhythm. Extremities warm and well perfused. Pulses equal. ABDOMEN: Soft, non-distended. No tenderness to palpation. No rebound or guarding. No masses. : Bull catheter in place, normal male genitalia otherwise. RECTAL: Deferred. MUSCULOSKELETAL: Chest examination reveals no tenderness. The back is symmetrical on inspection without obvious abnormality. No joint edema. LOWER EXTREMITIES: Calves are equal size bilaterally and non-tender. No edema. No discoloration. NEURO: Normal sensorium. No sensory or motor deficits noted. SKIN: No rash or jaundice noted. Medical Decision & Procedures ER Provider Diagnostic Interpretation: Radiology results as stated below per my review and radiologist interpretation: CHEST ONE VIEW PORTABLE CLINICAL HISTORY: Weakness COMPARISON STUDY: 03/14/2017 FINDINGS: The heart is normal in size. There is aortic tortuosity/ectasia. There is diffuse elevation of the interstitium. Pulmonary vascular congestion is suspected. A bilateral interstitial inflammatory process could appear similar but is felt to be less likely. Clinical and radiographic follow-up is recommended. There are no pleural effusions.[ IMPRESSION: Diffuse elevation of the interstitium. This likely represents pulmonary vascular congestion although a bilateral interstitial inflammatory process could appear similar. Clinical and radiographic follow-up is recommended. Electronically signed by: Dashawn Carrasco M.D. 05/19/2017 12:08 PM Dictated Date/Time: 05/19/2017 12:[address] HEAD WITHOUT CONTRAST (CT) CLINICAL HISTORY: fall, confusion HEAD PAIN COMPARISON STUDY: No previous studies for comparison. TECHNIQUE: Axial CT of the brain is performed from the vertex to the skull base. IV contrast was not administered for this examination. A dose lowering technique was utilized adhering to the principles of ALARA. CT DOSE: 614.27 mGy.cm FINDINGS: No intra or extra-axial mass lesions are visualized. There is no CT evidence of acute cortical infarction. There is no evidence of midline shift. There is no acute hemorrhage. No calvarial fractures are visualized. There are minimal white matter hypodensities likely on a small vessel basis. There is basal ganglial mineralization. There is no evidence of pathologic ventricular dilatation. There is no evidence of acute sinusitis IMPRESSION: No acute intracranial findings Electronically signed by: Dashawn Carrasco M.D. 05/19/2017 12:06 PM Dictated Date/Time: 05/19/2017 12:05 PM Laboratory Results Test 05/19/17 10:44 05/19/17 11:45 Immature Granulocyte % (Auto) 0.6 % White Blood Count 25.75 K/uL (4.8-10.8) Red Blood Count 2.93 M/uL (4.7-6.1) Hemoglobin 7.8 g/dL (14.0-18.0) Hematocrit 25.5 % (42-52) Mean Corpuscular Volume 87.0 fL (80-100) Mean Corpuscular Hemoglobin 26.6 pg (25-34) Mean Corpuscular Hemoglobin Concent 30.6 g/dl (32-36) Platelet Count 265 K/uL (130-400) Mean Platelet Volume 9.6 fL (7.4-10.4) Neutrophils (%) (Auto) 93.1 % Lymphocytes (%) (Auto) 1.8 % Monocytes (%) (Auto) 4.3 % Eosinophils (%) (Auto) 0.1 % Basophils (%) (Auto) 0.1 % Neutrophils # (Auto) 23.97 K/uL (1.4-6.5) Lymphocytes # (Auto) 0.47 K/uL (1.2-3.4) Monocytes # (Auto) 1.11 K/uL (0.11-0.59) Eosinophils # (Auto) 0.02 K/uL (0-0.5) Basophils # (Auto) 0.02 K/uL (0-0.2) Immature Granulocyte # (Auto) 0.16 K/uL (0.00-0.02) Platelet Estimate NORMAL Hypochromasia PRESENT Prothrombin Time 11.4 SECONDS (9.0-12.0) Prothromb Time International Ratio 1.1 (0.9-1.1) Activated Partial Thromboplast Time 28.5 SECONDS (21.0-31.0) Partial Thromboplastin Ratio 1.1 Est Creatinine Clear Calc Drug Dose 32.0 ml/min Magnesium Level 2.0 mg/dl (1.8-2.4) Total Bilirubin 0.5 mg/dl (0.2-1) Direct Bilirubin 0.2 mg/dl (0-0.2) Aspartate Amino Transf (AST/SGOT) 16 U/L (15-37) Alanine Aminotransferase (ALT/SGPT) 19 U/L (12-78) Alkaline Phosphatase 98 U/L (45-117) Troponin I < 0.015 ng/ml (0-0.045) Pro-B-Type Natriuretic Peptide 1170 pg/ml (0-900) Total Protein 7.2 gm/dl (6.4-8.2) Albumin 2.7 gm/dl (3.4-5.0) Lipase 98 U/L (73-393) Beta-Hydroxybutyric Acid 2.43 mg/dL (0.2-2.81) Procalcitonin 21.76 ng/ml (0-0.5) Thyroid Stimulating Hormone (TSH) 3.270 uIu/ml (0.300-4.500) Bedside Lactic Acid Venous 1.09 mmol/L (0.90-1.70) Laboratory results reviewed by me Medications Administered Medications (Trade) Dose Ordered Sig/Adolfo Route Start Time Stop Time Status Last Admin Dose Admin Sodium Chloride 1,000 ml @ 125 mls/hr Q8H STAT IV 05/19/17 11:17 05/19/17 16:18 DC 05/19/17 11:57 125 MLS/HR Sodium Chloride 500 ml @ 999 mls/hr Q31M STAT IV 05/19/17 12:37 05/19/17 13:07 DC 05/19/17 12:37 999 MLS/HR Levofloxacin (Levaquin / D5W) 750 mg NOW STAT IV 05/19/17 12:39 05/19/17 12:41 DC 05/19/17 14:17 750 MG Vancomycin HCl 1500 mg/Sodium Chloride 530 ml @ 200 mls/hr ONE STAT IV 05/19/17 12:40 05/19/17 15:18 DC 05/19/17 14:16 200 MLS/HR Sodium Chloride 1,000 ml @ 999 mls/hr Q1H1M STAT IV 05/19/17 12:52 05/19/17 13:52 DC 05/19/17 14:15 999 MLS/HR ECG Indication: weakness Rate (beats per minute): 108 Rhythm: sinus tachycardia Findings: no acute ischemic change, no ectopy ED Course 1117: Ordered Sodium Chloride 1000 ml @ 125 mls/hr IV. 1134: The patient was evaluated in room C6. A complete history and physical exam was performed. 1237: Ordered Sodium Chloride 500 ml @ 999 mls/hr IV. 1239: Ordered Levofloxacin 750 mg IV. 1240: Ordered Vancomycin HCl 1500 mg/Sodium Chloride 530 ml @ 200 ml/hr IV. 1247: I reevaluated the patient and he is resting comfortably. I discussed the exam findings with him and I discussed the treatment plan. He verbalized complete understanding and agreement. He is going to be evaluated for further treatment. 1252: Ordered Sodium Chloride 1000 ml @ 999 mls/hr IV. 1304: I discussed the patient's Case with Sachi Montague PA-C. She is going to evaluate the patient for further treatment. Medical Decision Triage Nursing notes reviewed. The patient's presentation and history were concerning for a fall, urinary symptoms and hypoxia. Etiologies such as UTI, intracranial bleeding, pneumonia, metabolic, infection, hypo/hyperglycemia, electrolyte abnormalities, cardiac sources, intracerebral event, toxicologic, neurologic, as well as others were entertained. The patient was evaluated and was noted to have unstable vital signs. He had a period of hypoxia and hypotension. He was given fluids and supplemental oxygen. He did better with this. His Bull catheter was not draining. The patient had blood work obtained and cultures were done. He was found have a significant leukocytosis and anemia. He had a type and cross performed. The patient's troponin was negative. He did have a mild elevation of his creatinine over baseline. The patient had unremarkable electrolytes otherwise. The patient had concerning findings on chest x-ray as above. He was given Levaquin and vancomycin. The patient's urinalysis is also very concerning. Nursing was unable to flush his catheter. This was removed. A large clot was removed by me from the meatus. It appears that the other catheter placed outside the Emergency Room was not functioning. The patient was hydrated with normal saline. On reassessment he was doing better. The [facility] service was consulted. He was evaluated in the Emergency Room for further management. Medication Reconcilliation Current Medication List: was personally reviewed by me Blood Pressure Screening Patient's blood pressure: Low blood pressure Consults Time Called: 1250 Consulting Physician: Sachi Montague PA-C Returned Call: 1304 I discussed the patient's Case with Sachi Montague PA-C. She is going to evaluate the patient for further treatment. Impression Primary Impression: Sepsis Additional Impressions: Pneumonia UTI (urinary tract infection) Anemia Scribe Attestation The scribe's documentation has been prepared under my direction and personally reviewed by me in its entirety. I confirm that the note above accurately reflects all work, treatment, procedures, and medical decision making performed by me. Departure Information Dispostion Being Evaluated By Hospitalist Referrals No Doctor, Assigned (PCP) Problem Qualifiers
[2017-05-19 18:23] LABS: BUN/CREATININE RATIO 18.7 (10-20); CALCIUM 7.8 mg/dl (8.5-10.1); CREATININE 2.22 mg/dl (0.60-1.40); POTASSIUM 5.1 mmol/L (3.5-5.1)
[2017-05-19 18:57] LABS: INFLUENZA A PCR Neg for Influ A (NEG); INFLUENZA B PCR Neg for Influ B (NEG)
--- NOTE | 2017-05-19 19:12 | Urology Consultation ---
History General Date of Service: May 19, 2017. Chief Complaint: urinary retention Primary Care Physician: Ely Hernandez D.O. Pt seen a urologist before?: Yes If yes, why?: urinary retention History of Present Illness I am asked to see pt for urinary retention. he is well known to me. He has had retention for just over a month. He is living in a non senior living home and a home health nurse changed his catheter earlier this week. it did not seem to go well. He describes pain with insertion. He presented to ER today after a fall due to weakness and had an overwhelming infection by labs. His bladder was full despite english. it could not be irrigated. It was removed and a new catheter was placed which drained 1400mL. He has had urethral bleeding along side the catheter but no blood in the collection bag suggesting he is having only urethral bleeding. Thus I suspect the english from the group home was not all the way in. He is draining frankly purulent yellow urine in large amounts. He is perking up with iv abt and fluids. Laboratory Results Past 24 Hours Test 05/19/17 10:44 05/19/17 11:45 05/19/17 14:20 05/19/17 17:00 Range/Units White Blood Count 25.75 4.8-10.8 K/uL Red Blood Count 2.93 4.7-6.1 M/uL Hemoglobin 7.8 14.0-18.0 g/dL Hematocrit 25.5 42-52 % Mean Corpuscular Volume 87.0 80-100 fL Mean Corpuscular Hemoglobin 26.6 25-34 pg Mean Corpuscular Hemoglobin Concent 30.6 32-36 g/dl Platelet Count 265 130-400 K/uL Mean Platelet Volume 9.6 7.4-10.4 fL Neutrophils (%) (Auto) 93.1 % Lymphocytes (%) (Auto) 1.8 % Monocytes (%) (Auto) 4.3 % Eosinophils (%) (Auto) 0.1 % Basophils (%) (Auto) 0.1 % Neutrophils # (Auto) 23.97 1.4-6.5 K/uL Lymphocytes # (Auto) 0.47 1.2-3.4 K/uL Monocytes # (Auto) 1.11 0.11-0.59 K/uL Eosinophils # (Auto) 0.02 0-0.5 K/uL Basophils # (Auto) 0.02 0-0.2 K/uL RDW Standard Deviation 44.7 36.4-46.3 fL RDW Coefficient of Variation 14.1 11.5-14.5 % Immature Granulocyte % (Auto) 0.6 % Immature Granulocyte # (Auto) 0.16 0.00-0.02 K/uL Platelet Estimate NORMAL Hypochromasia PRESENT Prothrombin Time 11.4 9.0-12.0 SECONDS Prothromb Time International Ratio 1.1 0.9-1.1 Activated Partial Thromboplast Time 28.5 21.0-31.0 SECONDS Partial Thromboplastin Ratio 1.1 Sodium Level 133 136-145 mmol/L Potassium Level 4.8 3.5-5.1 mmol/L Chloride Level 102 98-107 mmol/L Carbon Dioxide Level 23 21-32 mmol/L Anion Gap 8.0 3-11 mmol/L Blood Urea Nitrogen 40 7-18 mg/dl Creatinine 2.17 0.60-1.40 mg/dl Est Creatinine Clear Calc Drug Dose 32.0 ml/min Estimated GFR () 34.2 Estimated GFR (Non- 29.5 BUN/Creatinine Ratio 18.6 10-20 Random Glucose 322 70-99 mg/dl Calcium Level 8.1 8.5-10.1 mg/dl Magnesium Level 2.0 1.8-2.4 mg/dl Total Bilirubin 0.5 0.2-1 mg/dl Direct Bilirubin 0.2 0-0.2 mg/dl Aspartate Amino Transf (AST/SGOT) 16 15-37 U/L Alanine Aminotransferase (ALT/SGPT) 19 12-78 U/L Alkaline Phosphatase 98 45-117 U/L Troponin I < 0.015 0-0.045 ng/ml Pro-B-Type Natriuretic Peptide 1170 0-900 pg/ml Total Protein 7.2 6.4-8.2 gm/dl Albumin 2.7 3.4-5.0 gm/dl Lipase 98 73-393 U/L Beta-Hydroxybutyric Acid 2.43 0.2-2.81 mg/dL Procalcitonin 21.76 0-0.5 ng/ml Thyroid Stimulating Hormone (TSH) 3.270 0.300-4.500 uIu/ml Bedside Lactic Acid Venous 1.09 0.90-1.70 mmol/L Urine Color YELLOW Urine Appearance CLOUDY CLEAR Urine pH 5.0 4.5-7.5 Urine Specific [place] 1.015 1.000-1.030 Urine Protein 1+ NEG Urine Glucose (UA) 2+ NEG Urine Ketones NEG NEG Urine Occult Blood 3+ NEG Urine Nitrite POS NEG Urine Bilirubin NEG NEG Urine Urobilinogen NEG NEG Urine Leukocyte Esterase LARGE NEG Urine WBC (Auto) >30 0-5 /hpf Urine RBC (Auto) >30 0-4 /hpf Urine Hyaline Casts (Auto) 0 0-5 /lpf Urine Epithelial Cells (Auto) 0-5 0-5 /lpf Urine Bacteria (Auto) 2+ NEG Urine Pathogenic Casts 0 /lpf Influenza Type A (RT-PCR) Neg for Influ A NEG Influenza Type B (RT-PCR) Neg for Influ B NEG Test 05/19/17 17:15 05/19/17 17:48 Range/Units Bedside Glucose 219 70-99 mg/dl White Blood Count 20.66 4.8-10.8 K/uL Red Blood Count 2.79 4.7-6.1 M/uL Hemoglobin 7.6 14.0-18.0 g/dL Hematocrit 24.2 42-52 % Mean Corpuscular Volume 86.7 80-100 fL Mean Corpuscular Hemoglobin 27.2 25-34 pg Mean Corpuscular Hemoglobin Concent 31.4 32-36 g/dl RDW Standard Deviation 44.6 36.4-46.3 fL RDW Coefficient of Variation 14.1 11.5-14.5 % Platelet Count 227 130-400 K/uL Mean Platelet Volume 8.6 7.4-10.4 fL Sodium Level 136 136-145 mmol/L Potassium Level 5.1 3.5-5.1 mmol/L Chloride Level 105 98-107 mmol/L Carbon Dioxide Level 24 21-32 mmol/L Anion Gap 7.0 3-11 mmol/L Blood Urea Nitrogen 42 7-18 mg/dl Creatinine 2.22 0.60-1.40 mg/dl Est Creatinine Clear Calc Drug Dose 31.3 ml/min Estimated GFR () 33.3 Estimated GFR (Non- 28.7 BUN/Creatinine Ratio 18.7 10-20 Random Glucose 221 70-99 mg/dl Lactic Acid Level 1.4 0.4-2.0 mmol/L Calcium Level 7.8 8.5-10.1 mg/dl Microbiology Results 05/19/17 Blood Culture, Received Pending 05/19/17 Blood Culture, Received Pending 05/19/17 MRSA DNA Surveillance Screen, Received Pending Labs were reviewed and are within normal limits unless listed below. Labs are available in the chart and at [facility] Problem List Medical Problems: (1) Anemia Status: Acute (2) Cutaneous abscess of chest wall Status: Acute (3) Pneumonia Status: Acute (4) Routine lab draw Status: Acute (5) Sepsis Status: Acute (6) UTI (urinary tract infection) Status: Acute Past History diabetes, hypertension, other Past Surgical History: no surgical history Family History Diabetes mellitus SISTER Hypertension MOTHER Social History Hx Tobacco Use In Past Year?: No (QUIT 30 YEARS AGO) Alcohol: socially Marital status: Housing status: group home Occupation status: retired Immunizations History of Influenza Vaccine: Yes Influenza Vaccine Date: Mar 22, 2012 History of Tetanus Vaccine?: Unknown History of Pneumococcal: Yes Pneumococcal Date: Apr 02, 2012 History of Hepatitis B Vaccine: No History of MDRO No Allergies Coded Allergies: No Known Allergies (Unverified , 05/19/17) Medications Home Medications: Home Meds and Scripts Medications Dose Route/Sig Max Daily Dose Days Date Category Dose Instructions Qc Natura-Lax (Polyethylene Glycol 3350) 1 Pow Pow 17 Gm PO DAILY PRN 05/19/17 Reported Tylenol (Acetaminophen) 500 Mg Tab 500 Mg PO Q4 PRN 05/19/17 Reported MAX 3 GM APAP/24 HRS Lantus (Insulin Glargine) 100 Unit/Ml Inj 40 Units SC DAILY 05/19/17 Reported Proair Respiclick (Albuterol Sulfate) 108 Mcg/Act Aer 2 Puffs INH QID 05/19/17 Reported Humulin N (Insulin Human NPH) 100 Units/Ml Susp SC UD PRN 05/19/17 Reported DM- 70-130=0U 131-180=4U 181-240=8U 241-300=10U 301-350=12U 351-400=16U >400=20U AND CALL MD Starkey (Amlodipine Besylate) 5 Mg Tab 5 Mg PO DAILY 05/19/17 Reported Desitin (Zinc Oxide (Topical)) 40 % Oin 1 Appln TOP HS 05/19/17 Reported APPLY TO THE PENIS AT BEDTIME AND NEEDED Finasteride 5 Mg Tab 5 Mg PO QAM 30 03/17/17 Rx Tamsulosin HCl 0.4 Mg Cap 0.4 Mg PO HS 30 03/17/17 Rx Neurontin (Gabapentin) 100 Mg Cap 100 Mg PO DAILY 08/24/16 Reported Lipitor (Atorvastatin Calcium) 10 Mg Tab 10 Mg PO DAILY 08/08/13 Reported Ecotrin Or Generic (Aspirin) 81 Mg Tab 81 Mg PO QAM 04/01/12 Reported Inpatient Medications: Current Inpatient Medications Medications (Trade) Dose Ordered Sig/Adolfo Route Start Time Stop Time Status Last Admin Dose Admin Acetaminophen (Tylenol Tab) 650 mg Q4H PRN PO 05/19/17 14:00 06/18/17 13:59 Ondansetron HCl (Zofran Inj) 4 mg Q6H PRN IV 05/19/17 14:00 06/18/17 13:59 Insulin Aspart (novoLOG ASPART) SLIDING SCALE If C... ACHS SC 05/19/17 16:00 06/18/17 15:59 05/19/17 17:19 8 UNITS Glucose (Glucose 40% Gel) 15-30 GRAMS 15 GRAMS... UD PRN PO 05/19/17 14:00 06/18/17 13:59 Glucose (Glucose Chew Tab) 4-8 Tablets 4 Tabl... UD PRN PO 05/19/17 14:00 06/18/17 13:59 Dextrose (Dextrose 50% 50ML Syringe) 25-50ML OF 50% DW IV FOR... UD PRN IV 05/19/17 14:00 06/18/17 13:59 Glucagon (Glucagon Inj) 1 mg UD PRN SQ 05/19/17 14:00 06/18/17 13:59 Sodium Chloride 1,000 ml @ 125 mls/hr Q8H IV 05/19/17 14:00 05/19/17 21:59 05/19/17 17:17 125 MLS/HR Amlodipine Besylate (Norvasc Tab) 5 mg DAILY PO 05/20/17 09:00 06/19/17 08:59 Aspirin (Ecotrin Tab) 81 mg QAM PO 05/20/17 09:00 06/19/17 08:59 Atorvastatin Calcium (Lipitor Tab) 10 mg DAILY PO 05/20/17 09:00 06/19/17 08:59 Finasteride (Proscar Tab) 5 mg QAM PO 05/20/17 09:00 06/19/17 08:59 Gabapentin (Neurontin Cap) 100 mg DAILY PO 05/20/17 09:00 06/19/17 08:59 Tamsulosin HCl (Flomax Cap) 0.4 mg HS PO 05/19/17 21:00 06/18/17 20:59 Levofloxacin (Consult) 1 ea UD PRN N/A 05/19/17 14:45 06/18/17 14:44 Vancomycin HCl (Consult) 1 ea UD PRN N/A 05/19/17 14:45 06/18/17 14:44 Heparin Sodium (Porcine) (Heparin Sq 5000 Unit/0.5ml) 5,000 unit Q12 SQ 05/19/17 21:00 06/18/17 20:59 Vancomycin HCl 1250 mg/Sodium Chloride 275 ml @ 200 mls/hr Q24H IV 05/20/17 12:00 05/27/17 11:59 Levofloxacin 750 mg/Prmx 150 ml @ 100 mls/hr Q48H IV 05/21/17 14:00 05/28/17 13:59 Albuterol (Ventolin Hfa Inhaler) 2 puffs QID INH 05/19/17 17:00 06/18/17 16:59 05/19/17 17:17 2 PUFFS Miscellaneous Information (Consult Glycemic Management Pharmacy) 1 [facility] N/A 05/19/17 15:42 06/18/17 15:41 Insulin Glargine (Lantus Solostar Pen) 20 units Q12 SC 05/19/17 21:00 06/18/17 20:59 Insulin Aspart (novoLOG ASPART) SLIDING SCALE If C... TODAY@0000,0400 NE 05/20/17 00:00 05/20/17 04:01 Review of Systems Review of Systems Constitutional: + fever, + chills, + weight loss Neurological: + dizzy Endocrine: + too cold, + tired/sluggish Gastrointestinal: + abdominal pain, + nausea, No diarrhea Cardiovascular: No chest pain, No swelling ankles/feet Respiratory: No shortness of breath Male : + urinary retention, + infections Physical Exam Vital Signs: Vital Signs Past 12 Hours Date Time Temp Pulse Resp B/P (MAP) Pulse Ox O2 Delivery O2 Flow Rate FiO2 05/19/17 16:00 95 05/19/17 15:09 37.4 99 18 115/67 (83) 96 Nasal Cannula 2.0 05/19/17 14:45 37.4 100 14 105/63 92 05/19/17 14:30 100 14 105/63 92 Nasal Cannula 2.0 05/19/17 14:00 100 19 110/66 95 Nasal Cannula 2.0 05/19/17 13:31 109/67 05/19/17 13:30 96 Nasal Cannula 2.0 05/19/17 13:30 102 18 96 Nasal Cannula 2.0 05/19/17 13:00 102 18 108/63 98 Nasal Cannula 2.0 05/19/17 12:30 103 18 103/65 97 Nasal Cannula 2.0 05/19/17 12:19 104 18 109/65 96 Nasal Cannula 2.0 05/19/17 12:18 109/65 05/19/17 11:30 108 18 108/66 97 Nasal Cannula 2.0 05/19/17 11:30 108 18 108/66 97 05/19/17 11:10 96/63 05/19/17 11:10 109 05/19/17 11:01 95 Nasal Cannula 2.0 05/19/17 11:00 87 Room Air 05/19/17 11:00 37.4 110 18 96/63 87 Room Air 05/19/17 11:00 37.4 110 18 96/63 87 Room Air Physical Exam: General Appearance: WD/WN, no apparent distress Eyes: bilateral eyes pertinent finding (right eye has cloudy iris and pupil ) ENT: hearing grossly normal Neck: no adenopathy, no JVD, trachea midline Respiratory/Chest: no respiratory distress, no accessory muscle use Genitourinary - Male: Penis: normal penis Urethral Meatus: normal urethral meatus Testes: normal testes Epididymides: normal epididymides Extremities: non-tender, normal inspection, no pedal edema, no calf tenderness Neurologic/Psychiatric: alert, normal mood/affect, oriented x 3 Skin: normal color, warm/dry, no rash Assessment & Plan Assessment & Plan malpositioned english catheter creating an undrained pyocystis Now drained by new properly positioned English in ER broad spectrum antibiotics are on board. should improve quickly keep english indefintely
[2017-05-19 19:45] VITALS: BP 110/68; PULSE 79; TEMP 36.9; O2SAT 96
[2017-05-19 20:00] VITALS: O2SAT 95
[2017-05-19] MEDS ORDERED: INSULIN GLARGINE SOLOSTAR 100 UNITS/ML 3 ML PEN SC SCH ×2 (21:00)
[2017-05-19] MEDS: TAMSULOSIN HCL 0.4 MG CAP PO SCH (21:37)
[2017-05-19] MEDS: HEPARIN SOD 5000 UNIT/0.5 ML CARP SQ SCH (21:38)
[2017-05-20] VITALS (18 sets, daily range): BP systolic 102–139; BP diastolic 57–78; PULSE 88–98; TEMP 36.4–37.6; O2SAT 91–97; Ht 182.9 cm; Wt 79.5 kg
[2017-05-20] MEDS: INSULIN ASPART 100 UNITS/ML 3 ML PEN SC SCH ×7 (03:36→21:17)
[2017-05-20 06:18] LABS: HEMATOCRIT 22.9 % (42-52); MEAN CELL VOLUME 87.4 fL (80-100); MEAN CORPUSCULAR HEMOGLOBIN 26.7 pg (25-34); MEAN CORPUSCULAR HGB CONC 30.6 g/dl (32-36); MEAN PLATELET VOLUME 9.2 fL (7.4-10.4); PLATELET COUNT 209 K/uL (130-400); RED BLOOD COUNT 2.62 M/uL (4.7-6.1); WHITE BLOOD COUNT 13.87 K/uL (4.8-10.8)
[2017-05-20 06:20] LABS: ESTIMATED AVERAGE GLUCOSE 272 mg/dl; HA1C FLAG Normal (Normal)
[2017-05-20 06:28] LABS: INR 1.1 (0.9-1.1); PROTHROMBIN TIME (PATIENT) 12.3 SECONDS (9.0-12.0)
[2017-05-20 06:49] LABS: BUN/CREATININE RATIO 18.3 (10-20); CALCIUM 8.2 mg/dl (8.5-10.1); CREATININE 2.14 mg/dl (0.60-1.40); POTASSIUM 4.4 mmol/L (3.5-5.1)
--- NOTE | 2017-05-20 07:03 | Clinical Documentation Query ---
QUERY 1 OF [address] MUNOZ, In your clinical opinion is this patient being managed for: ( ) UTI due to malpositioned english catheter ( ) Not Agree ( ) Other explanation of clinical findings (Please Explain) ( ) Unable to determine (Please Define) ( ) Need to Discuss The medical record reflects the following clinical findings, treatment, and risk factors. Clinical Indicators:71 yo male presenting with Sepsis and UTI. Noted to have a chronic english catheter for the past month. Treatment: IV vancomycin, IV levaquin, IV fluid boluses, tele, urine cx pending, urology consult, english exchange Risk Factors:chronic english, DM QUERY 2 OF 2 In your clinical opinion is this patient being managed for: ( ) Metabolic encephalopathy ( ) Not Agree ( ) Other explanation of clinical findings (Please Explain) ( ) Unable to determine (Please Define) ( ) Need to Discuss The medical record reflects the following clinical findings, treatment, and risk factors. Clinical Indicators: Pt presented with reported confusion. CT head without acute findings. Na 133, BUN 40, Cr 2.17, glucose 322, O2 sat 87% on RA Treatment: IV fluid boluses, IV levaquin, IV vancomycin, O2 support, tele, pending blood and urine cx Risk Factors: sepsis, UTI, pneumonia Please clarify and document your clinical opinion in the progress notes and discharge summary. Terms such as "probable", "suspected", "likely", "questionable", "possible", or "still to be ruled out" are acceptable. IF IN AGREEMENT, YOU MUST DOCUMENT ABOVE DIAGNOSTIC STATEMENT IN DAILY PROGRESS NOTES AND DISCHARGE SUMMARY. This document is not part of the patient's record. Thank You, Noemi Myers, CHARO [phone]
[2017-05-20] MEDS: ATORVASTATIN 10 MG TAB PO SCH (08:48)
[2017-05-20] MEDS: GABAPENTIN 100 MG CAP PO SCH (08:48)
[2017-05-20] MEDS: AMLODIPINE BESYLATE 5 MG TAB PO SCH (08:49)
[2017-05-20] MEDS: FINASTERIDE 5 MG TAB PO SCH (08:49)
[2017-05-20] MEDS: ALBUTEROL HFA 8 GM INHALER INH SCH ×4 (08:49→20:59)
[2017-05-20] MEDS: HEPARIN SOD 5000 UNIT/0.5 ML CARP SQ SCH (08:59)
[2017-05-20] MEDS ORDERED: ASPIRIN 81 MG ECTAB PO SCH (09:00)
--- NOTE | 2017-05-20 10:46 | Pharmacy Progress Note ---
Glycemic Control Intl Consult Date of Service May 20, 2017. Scope Glycemic Pharmacist consulted by VADIM Snider on 05/19/17 for glycemic control and to write orders per [facility] inpatient glycemic control protocol Objective Weight (Kilograms): 79.300 Accuchecks BSG (last 24hrs): Test 05/19/17 10:44 05/19/17 17:15 05/19/17 17:48 05/19/17 20:33 Random Glucose 322 mg/dl (70-99) 221 mg/dl (70-99) Bedside Glucose 219 mg/dl (70-99) 109 mg/dl (70-99) Test 05/20/17 00:15 05/20/17 03:30 05/20/17 05:53 05/20/17 07:03 Bedside Glucose 103 mg/dl (70-99) 74 mg/dl (70-99) 72 mg/dl (70-99) Random Glucose 65 mg/dl (70-99) Laboratory Data (last 24hrs) Test 05/19/17 10:44 05/19/17 17:48 05/20/17 05:53 Anion Gap 8.0 mmol/L 7.0 mmol/L 9.0 mmol/L BUN/Creatinine Ratio 18.6 18.7 18.3 Blood Urea Nitrogen 40 mg/dl 42 mg/dl 39 mg/dl Creatinine 2.17 mg/dl 2.22 mg/dl 2.14 mg/dl Potassium Level 4.8 mmol/L 5.1 mmol/L 4.4 mmol/L Sodium Level 133 mmol/L 136 mmol/L 139 mmol/L White Blood Count 25.75 K/uL 20.66 K/uL 13.87 K/uL Red Blood Count 2.93 M/uL Hemoglobin 7.8 g/dL Hematocrit 25.5 % Mean Corpuscular Volume 87.0 fL Mean Corpuscular Hemoglobin 26.6 pg Mean Corpuscular Hemoglobin Concent 30.6 g/dl Platelet Count 265 K/uL Mean Platelet Volume 9.6 fL Neutrophils (%) (Auto) 93.1 % Lymphocytes (%) (Auto) 1.8 % Monocytes (%) (Auto) 4.3 % Eosinophils (%) (Auto) 0.1 % Basophils (%) (Auto) 0.1 % Neutrophils # (Auto) 23.97 K/uL Lymphocytes # (Auto) 0.47 K/uL Monocytes # (Auto) 1.11 K/uL Eosinophils # (Auto) 0.02 K/uL Basophils # (Auto) 0.02 K/uL Hemoglobin A1c 11.1 % HbA1c Test 05/20/17 05:53 Hemoglobin A1c 11.1 % (4.5-5.6) H Recent Pertinent Medications Outpatient Anti-diabetic Regimen: * Lantus 40 units QD * NPH sliding scale? * Total estimated outpatient insulin/day = ~80 units? * A1c = 15% 03/15/17 The patient is currently receiving: * Basal insulin: Lantus 20 units every 12 hours * Correctional Insulin: Novolog Correction per scale ACHS Goal Range: Low 140 mg/dL - High 180 mg/dL Correction Factor: 20 mg/dL/unit * Prandial insulin: Per carb ratio of 1 unit per 7 grams CHO consumed Risk Factors for Insulin Resistance: * Infection * Diet Assessment & Plan ASSESSMENT: * 71 yo M known to glycemic service from prior admission this past March, back in with sepsis secondary to UTI vs Pneumonia * During March admission, A1c found to be 15% and pt discharged with insulin * A1c from this AM is 11.1% which is a great improvement from last admission * BSGs 219 mg/dL in the evening at dinner when pharmacy received consult * A tight Novolog ACHS added and pt corrected down to 109 mg/dL * Lantus 20 units given HS * Fasting BSG this AM 72 mg/dL * My plan will be to reduce basal insulin from q12 to HS only based on BSG trend * Change Novolog to match parameters that worked during past admission PLAN FOR INPATIENT GLYCEMIC CONTROL: * Basal insulin with LANTUS 20 units SQ HS * Correctional Insulin with NOVOLOG per scale ACHS * Goal Range: Low 110 mg/dL - High 140 mg/dL * Correction Factor: 25 mg/dL/unit * Nutritional / Prandial insulin per carb ratio of 1 unit per 8 grams CHO consumed * Please note that the plan above was derived based on current level of insulin resistance and hospital stress. These recommendations are appropriate for inpatient admission only. Plan of care upon discharge will need to be reassessed to avoid potential outpatient hypo/hyperglycemia. Thank you.
[2017-05-20] MEDS: MUPIROCIN 2% OINT 22 GM TUBE EXT SCH (11:00)
[2017-05-20] MEDS: SODIUM CHLORIDE 0.9% 1000ML 1,000 ML IV SCH ×2 (11:00→21:04)
[2017-05-20] MEDS ORDERED: DOCUSATE SODIUM/SENNA 50/8.6MG TAB PO ONE (11:00)
[2017-05-20] MEDS ORDERED: POLYETHYLENE (MIRALAX) 17 GM PACK PO PRN (11:00)
[2017-05-20] MEDS ORDERED: BISACODYL 10 MG SUPP PR PRN (11:00)
--- NOTE | 2017-05-20 11:08 | Progress Note ---
Medicine Progress Note Date & Time of Visit: May 20, 2017 at 10:57. Subjective patient seen resting in bed, comfortable states he feels improved compared to yesterday penile pain resolved, still has some blood oozing from urethra/english denies abdominal pain, fever/chills denies dyspnea, has occasional dry cough no chest pain, dizziness, weakness, palpitations no other symptoms Objective Last 8 Hrs Date Time Temp Pulse Resp B/P (MAP) Pulse Ox O2 Delivery O2 Flow Rate FiO2 05/20/17 07:38 36.4 98 20 132/76 (94) 94 Room Air 05/20/17 07:30 Room Air 05/20/17 04:07 37.4 88 18 102/62 (75) 92 Room Air 05/20/17 04:00 Room Air Physical Exam: General- oriented x 2, not in distress, speaks in sentences with no effort Head- atraumatic Eyes- PERRL, EOMI, anicteric ENT- oropharynx clear Neck- supple, no JVD, no adenopathy, no thyromegaly Lungs- clear to auscultation bilaterally Heart- regular rhythm; no murmur, normal rate Abdomen- normal bowel sounds, soft, nontender (+) english cath in place- some tinge of blood near the urethra/english Extremities- no pretibial edema, no calf tenderness; peripheral pulses intact Neuro- alert, oriented x 3; PERRL, EOMI; no facial palsy; no dysarthria; motor 5 /5 bilaterally; sensation 100% ; no other gross focal neuro deficits Skin- warm & dry Laboratory Results: Last 24 Hours Test 05/19/17 11:45 05/19/17 14:20 05/19/17 17:00 05/19/17 17:15 Bedside Lactic Acid Venous 1.09 mmol/L Urine Color YELLOW Urine Appearance CLOUDY Urine pH 5.0 Urine Specific [place] 1.015 Urine Protein 1+ Urine Glucose (UA) 2+ Urine Ketones NEG Urine Occult Blood 3+ Urine Nitrite POS Urine Bilirubin NEG Urine Urobilinogen NEG Urine Leukocyte Esterase LARGE Urine WBC (Auto) >30 /hpf Urine RBC (Auto) >30 /hpf Urine Hyaline Casts (Auto) 0 /lpf Urine Epithelial Cells (Auto) 0-5 /lpf Urine Bacteria (Auto) 2+ Urine Pathogenic Casts /lpf Influenza Type A (RT-PCR) Neg for Influ A Influenza Type B (RT-PCR) Neg for Influ B Bedside Glucose 219 mg/dl Test 05/19/17 17:48 05/19/17 20:33 05/20/17 00:15 05/20/17 03:30 White Blood Count 20.66 K/uL Red Blood Count 2.79 M/uL Hemoglobin 7.6 g/dL Hematocrit 24.2 % Mean Corpuscular Volume 86.7 fL Mean Corpuscular Hemoglobin 27.2 pg Mean Corpuscular Hemoglobin Concent 31.4 g/dl RDW Standard Deviation 44.6 fL RDW Coefficient of Variation 14.1 % Platelet Count 227 K/uL Mean Platelet Volume 8.6 fL Sodium Level 136 mmol/L Potassium Level 5.1 mmol/L Chloride Level 105 mmol/L Carbon Dioxide Level 24 mmol/L Anion Gap 7.0 mmol/L Blood Urea Nitrogen 42 mg/dl Creatinine 2.22 mg/dl Est Creatinine Clear Calc Drug Dose 31.3 ml/min Estimated GFR () 33.3 Estimated GFR (Non- 28.7 BUN/Creatinine Ratio 18.7 Random Glucose 221 mg/dl Lactic Acid Level 1.4 mmol/L Calcium Level 7.8 mg/dl Bedside Glucose 109 mg/dl 103 mg/dl 74 mg/dl Test 05/20/17 05:53 05/20/17 07:03 White Blood Count 13.87 K/uL Red Blood Count 2.62 M/uL Hemoglobin 7.0 g/dL Hematocrit 22.9 % Mean Corpuscular Volume 87.4 fL Mean Corpuscular Hemoglobin 26.7 pg Mean Corpuscular Hemoglobin Concent 30.6 g/dl RDW Standard Deviation 45.3 fL RDW Coefficient of Variation 14.1 % Platelet Count 209 K/uL Mean Platelet Volume 9.2 fL Prothrombin Time 12.3 SECONDS Prothromb Time International Ratio 1.1 Sodium Level 139 mmol/L Potassium Level 4.4 mmol/L Chloride Level 105 mmol/L Carbon Dioxide Level 25 mmol/L Anion Gap 9.0 mmol/L Blood Urea Nitrogen 39 mg/dl Creatinine 2.14 mg/dl Est Creatinine Clear Calc Drug Dose 34.8 ml/min Estimated GFR () 34.8 Estimated GFR (Non- 30.0 BUN/Creatinine Ratio 18.3 Random Glucose 65 mg/dl Estimated Average Glucose 272 mg/dl Hemoglobin A1c 11.1 % Calcium Level 8.2 mg/dl Bedside Glucose 72 mg/dl Date/Time Source Procedure Growth Status 05/19/17 11:46 Blood Blood Culture Pending Received 05/19/17 11:41 Blood Blood Culture Pending Received 05/19/17 17:00 Nasal MRSA DNA Surveillance Screen - Final Specimen Positive for MRSA by DNA Probe Complete Assessment & Plan This is a 71yo M who resides at [facility] with a PMH of DM II (uncontrolled) , HTN, HLD, CKD III and urinary retention (with a english) who presents with dysuria, penile pain and generalized weakness. Sepsis 2/2 UTI, PNA: -Initially hypotensive at 93/63, tachycardic at 110 -BP normotensive, HR improved after IVF resuscitation -Leukocytosis of 25, POC Lactate of 1.09 -- now afebrile leukocytosis improving continue IV fluids -- management of UTI and possible PNA as noted below UTI Chronic Urinary Retention, Chronic English, BPH -UA with large amount of leuk esterase, nitrite -Likely 2/2 urinary retention, english in place [facility] -- Nasal MRSA: Positive Urine culture: pending Blood Cultures: pending -- empiric Vanco + Levaquin Day [address] English cath replaced appreciate Dr. Gentile' input Possible Pneumonia - vs. CHF - check CT chest - Sputum culture: pending - check Echo Hypoxia 2/2 PNA: -Hypoxic in ER in high 80s on RA -CXR with bilateral interstitial process vs. pulm vasc congestion -O2 saturation improved to high 90s on 2L NC -Does not require home O2 -Continue supplemental O2 per protocol -- lung sounds clear CT chest today wean off oxygen accordingly AXEL on CKD III: -Cr elevated to 2.17 (baseline is 1.2) -Likely multifactorial: poor PO intake in addition to possible obstruction 2/2 BPH, urinary retention -Denies NSAID use -- likely from Sepsis, Post Renal- Obstruction -- IV fluids monitor crea Acute Blood Loss Anemia on Chronic anemia: -- Hg down to 7.0 likely from Hematuria -- Hemoccult pending -- will transfuse 2 units PRBC monitor Hg -- check Anemia panel DM II: -Hgb a1c of 9/6 on 08/20 -Recheck hgb a1c -BSG of 322 in ER -Hold home regimen -Basal bolus regimen while in-patient -Pharm consult due to fluctuating BSG at [facility] HTN: -Normotensive -Cont home amlodipine with hold parameters HLD: -Continue statin DVT Ppx: SCDs only in light of hematuria, anemia Code status: FULL PCP: David Dispo: SCARLETT consulted to help with discharge placement back to [facility] Current Inpatient Medications: Current Inpatient Medications Medications (Trade) Dose Ordered Sig/Adolfo Route Start Time Stop Time Status Last Admin Dose Admin Acetaminophen (Tylenol Tab) 650 mg Q4H PRN PO 05/19/17 14:00 06/18/17 13:59 Ondansetron HCl (Zofran Inj) 4 mg Q6H PRN IV 05/19/17 14:00 06/18/17 13:59 Insulin Aspart (novoLOG ASPART) SLIDING SCALE If C... ACHS SC 05/19/17 16:00 06/18/17 15:59 05/20/17 08:57 3 UNITS Glucose (Glucose 40% Gel) 15-30 GRAMS 15 GRAMS... UD PRN PO 05/19/17 14:00 06/18/17 13:59 Glucose (Glucose Chew Tab) 4-8 Tablets 4 Tabl... UD PRN PO 05/19/17 14:00 06/18/17 13:59 Dextrose (Dextrose 50% 50ML Syringe) 25-50ML OF 50% DW IV FOR... UD PRN IV 05/19/17 14:00 06/18/17 13:59 Glucagon (Glucagon Inj) 1 mg UD PRN SQ 05/19/17 14:00 06/18/17 13:59 Amlodipine Besylate (Norvasc Tab) 5 mg DAILY PO 05/20/17 09:00 06/19/17 08:59 05/20/17 08:49 5 MG Atorvastatin Calcium (Lipitor Tab) 10 mg DAILY PO 05/20/17 09:00 06/19/17 08:59 05/20/17 08:48 10 MG Finasteride (Proscar Tab) 5 mg QAM PO 05/20/17 09:00 06/19/17 08:59 05/20/17 08:49 5 MG Gabapentin (Neurontin Cap) 100 mg DAILY PO 05/20/17 09:00 06/19/17 08:59 05/20/17 08:48 100 MG Tamsulosin HCl (Flomax Cap) 0.4 mg HS PO 05/19/17 21:00 06/18/17 20:59 05/19/17 21:37 0.4 MG Levofloxacin (Consult) 1 ea UD PRN N/A 05/19/17 14:45 06/18/17 14:44 Vancomycin HCl (Consult) 1 ea UD PRN N/A 05/19/17 14:45 06/18/17 14:44 Vancomycin HCl 1250 mg/Sodium Chloride 275 ml @ 200 mls/hr Q24H IV 05/20/17 12:00 05/27/17 11:59 Levofloxacin 750 mg/Prmx 150 ml @ 100 mls/hr Q48H IV 05/21/17 14:00 05/28/17 13:59 Albuterol (Ventolin Hfa Inhaler) 2 puffs QID INH 05/19/17 17:00 06/18/17 16:59 05/20/17 08:49 2 PUFFS Miscellaneous Information (Consult Glycemic Management Pharmacy) 1 ea UD N/A 05/19/17 15:42 06/18/17 15:41 Sodium Chloride 1,000 ml @ 100 mls/hr Q10H IV 05/20/17 10:45 06/19/17 10:44 UNV Mupirocin (Bactroban 2% Oint) 1 appln DAILY EXT 05/21/17 09:00 06/20/17 08:59 UNV Senna/Docusate Sodium (Senokot S Tab) 1 tab QAM PO 05/21/17 09:00 06/20/17 08:59 UNV Senna/Docusate Sodium (Senokot S Tab) 1 tab ONE PO 05/20/17 11:00 06/19/17 10:59 UNV Polyethylene (Miralax Powder Packet) 17 gm DAILY PRN PO 05/20/17 11:00 06/19/17 10:59 UNV Bisacodyl (Dulcolax Supp) 10 mg DAILY PRN MI 05/20/17 11:00 06/19/17 10:59 UNV
--- NOTE | 2017-05-20 13:01 | DIAGNOSTIC IMAGING REPORT ---
(CHEST) THORAX WITHOUT CT DOSE: 434.51 mGy.cm HISTORY: Dyspnea. Infection. r/o pneumonia TECHNIQUE: Multiaxial CT images of the chest were performed without contrast. A dose lowering technique was utilized adhering to the principles of ALARA. COMPARISON: None. FINDINGS: Mild bibasilar atelectasis. Slight basilar interstitial prominence. No well-defined focal infiltrate. Moderate abscess chronic change and ectasia thoracic aorta. No evidence for aneurysm. IMPRESSION: 1. Mild chronic basilar interstitial and atelectatic change. 2. No focal infiltrate The above report was generated using voice recognition software. It may contain grammatical, syntax or spelling errors. Electronically signed by: Taz Rios M.D. 05/20/2017 12:59 PM Dictated Date/Time: 05/20/2017 12:54 PM
--- NOTE | 2017-05-20 13:27 | DIAGNOSTIC IMAGING REPORT ---
KUB HISTORY: Abdominal distention. COMPARISON: KUB 05/19/2017. FINDINGS: Large amount well-formed stool seen throughout the colon. Few nondilated gas-filled loops of small bowel within the right side the abdomen. These have improved. Nondistended gas-filled stomach. No renal calculi. No ureteral calculi. No pneumoperitoneum or pneumatosis. IMPRESSION: 1. Improvement in the nondilated gas-filled loops of small bowel within the abdomen. 2. Large amount of well-formed stool seen throughout the colon. Electronically signed by: Abelardo Mendez M.D. 05/20/2017 1:25 PM Dictated Date/Time: 05/20/2017 1:22 PM
[2017-05-20] MEDS: VANCOMYCIN INJ 1,250 MG in SODIUM CHLORIDE 0.9% 250ML 250 ML IV SCH (13:29)
--- NOTE | 2017-05-20 15:22 | ECHOCARDIOGRAM REPORT ---
*NOTICE TO RECEIVING [employer]Y This information is strictly Confidential and protected under [place] law. [place] law prohibits you from making any further disclosure of this information unless further disclosure is expressly permitted by the written consent of the person to whom it pertains or is authorized by law. A general authorization for the release of medical or other information is not sufficient for this purpose. Hospital accepts no responsibility if the information is made available to any other person, INCLUDING THE PATIENT. Interpretation Summary * Name: ABDIEL MORATAYA Study Date: 05/20/2017 12:03 PM BP: 139/78 mmHg * Patient Location: C.2E\S\E205\S\1 HR: 96 * : 1945 (M/d/yyyy) Gender: Male Height: 72 in * Age: 71 yrs Ethnicity: CA Weight: 174 lb * Ordering Physician: Rico Castelan * Referring Physician: Self, Referred * Performed By: Lashay Peters RDCS * * Reason For Study: POSSIBLE CHF * BSA: 2.0 m2 * -- Conclusions -- * Normal LV chamber size with mild concentric LVH. * Normal LV systolic function, EF 55-60%. * No segmental left ventricular wall motion abnormalities are noted. * Grade II diastolic dysfunction. * Mild mitral regurgitation. Procedure Details * A complete two-dimensional transthoracic echocardiogram was performed (2D, M-mode, Doppler and color flow Doppler). Left Ventricle * The left ventricle is normal in size. * There is mild concentric left ventricular hypertrophy. * Ejection Fraction = 55-60%. * Left ventricular systolic function is normal. * No segmental left ventricular wall motion abnormalities are noted. * The left ventricular wall motion is normal. Right Ventricle * The right ventricular cavity size is normal (basal dimension <4.2 cm in right ventricular apical 4-chamber view). * The right ventricular systolic function is normal as assessed by tricuspid annular plane systolic excursion (TAPSE) (normal >1.5 cm). Atria * The left atrial size is normal. * Right atrial size is normal. * No ASD detected; PFO is not assessed. Mitral Valve * The mitral valve anatomy is normal. * There is no mitral valve stenosis. * There is mild mitral regurgitation. Tricuspid Valve * The tricuspid valve is normal in structure and function. Aortic Valve * The aortic valve is normal in structure and function. Pulmonic Valve * The pulmonary valve is not well seen, but the Doppler examination is normal without significant regurgitation or stenosis. Great Vessels * The aortic root is normal size. Pericardium/Pleural * There is no pericardial effusion. Left Ventricular Diastolic Function * Diastolic dysfunction, Grade II (pseudonormalization pattern). MMode 2D Measurements and Calculations IVSd 1.3 cm IVSs 1.5 cm LVIDd 4.4 cm LVIDs 3.2 cm LVPWd 1.6 cm LVPWs 2.1 cm IVS/LVPW 0.83 FS 28.5 % EDV(Teich) 88.7 ml ESV(Teich) 39.8 ml EF(Teich) 55.2 % EDV(cubed) 86.5 ml ESV(cubed) 31.6 ml EF(cubed) 63.4 % % IVS thick 14.9 % % LVPW thick 33.9 % LV mass(C)d 252.7 grams LV mass(C)dI 125.8 grams/m\S\2 LV mass(C)s 232.6 grams LV mass(C)sI 115.8 grams/m\S\2 SV(Teich) 48.9 ml SI(Teich) 24.4 ml/m\S\2 SV(cubed) 54.9 ml SI(cubed) 27.3 ml/m\S\2 Ao root diam 3.4 cm Ao root area 8.9 cm\S\2 LA dimension 3.8 cm LA/Ao 1.1 LVAd ap4 29.8 cm\S\2 LVLd ap4 7.9 cm EDV(MOD-sp4) 93.2 ml EDV(sp4-el) 95.1 ml LVAs ap4 18.1 cm\S\2 LVLs ap4 6.5 cm ESV(MOD-sp4) 42.4 ml ESV(sp4-el) 42.9 ml EF(MOD-sp4) 54.5 % EF(sp4-el) 54.9 % LVAd ap2 33.4 cm\S\2 LVLd ap2 8.3 cm EDV(MOD-sp2) 112.3 ml EDV(sp2-el) 113.4 ml LVAs ap2 20.7 cm\S\2 LVLs ap2 7.2 cm ESV(MOD-sp2) 49.0 ml ESV(sp2-el) 50.5 ml EF(MOD-sp2) 56.4 % EF(sp2-el) 55.5 % LVLd %diff 5.1 % EDV(MOD-bp) 101.8 ml LVLs %diff 10.1 % ESV(MOD-bp) 48.5 ml EF(MOD-bp) 52.3 % SV(MOD-sp4) 50.8 ml SI(MOD-sp4) 25.3 ml/m\S\2 SV(MOD-sp2) 63.3 ml SI(MOD-sp2) 31.5 ml/m\S\2 SV(MOD-bp) 53.2 ml SI(MOD-bp) 26.5 ml/m\S\2 SV(sp4-el) 52.2 ml SI(sp4-el) 26.0 ml/m\S\2 SV(sp2-el) 62.9 ml SI(sp2-el) 31.3 ml/m\S\2 Doppler Measurements and Calculations MV A max nalini 111.9 cm/sec MV P1/2t max nalini 128.3 cm/sec MV dec time 0.17 sec Ao V2 max 143.5 cm/sec Ao max PG 8.2 mmHg Ao max PG (full) 3.2 mmHg LV V1 max PG 5.1 mmHg LV V1 max 112.7 cm/sec TR max nalini 290.2 cm/sec
[2017-05-20] MEDS: TAMSULOSIN HCL 0.4 MG CAP PO SCH (20:59)
[2017-05-20] MEDS ORDERED: INSULIN GLARGINE SOLOSTAR 100 UNITS/ML 3 ML PEN SC SCH (21:00)
[2017-05-21] VITALS (9 sets, daily range): BP systolic 126–155; BP diastolic 73–88; PULSE 89–92; TEMP 36.5–37.4; O2SAT 91–95
[2017-05-21 06:29] LABS: BASO % 0.2 %; BASO ABS # 0.02 K/uL (0-0.2); COMPLETE YES; EOS % 3.4 %; HEMATOCRIT 30.7 % (42-52); IG% 0.5 %; LYMPH % 16.4 %; LYMPH ABS # 1.63 K/uL (1.2-3.4); MEAN CORPUSCULAR HEMOGLOBIN 26.9 pg (25-34); MEAN CORPUSCULAR HGB CONC 30.9 g/dl (32-36); MEAN PLATELET VOLUME 9.4 fL (7.4-10.4); MONO % 10.1 %; NEUT % 69.4 %; PLATELET COUNT 230 K/uL (130-400); RED BLOOD COUNT 3.53 M/uL (4.7-6.1); WHITE BLOOD COUNT 9.95 K/uL (4.8-10.8)
[2017-05-21 06:58] LABS: BUN/CREATININE RATIO 19.1 (10-20); CALCIUM 8.4 mg/dl (8.5-10.1); CREATININE 1.67 mg/dl (0.60-1.40); POTASSIUM 4.2 mmol/L (3.5-5.1)
[2017-05-21] MEDS: INSULIN ASPART 100 UNITS/ML 3 ML PEN SC SCH ×4 (07:00→21:47)
[2017-05-21 07:05] LABS: FERRITIN 495.4 ng/ml (8.0-388.0)
[2017-05-21] MEDS: MUPIROCIN 2% OINT 22 GM TUBE EXT SCH (07:30)
[2017-05-21] MEDS: GABAPENTIN 100 MG CAP PO SCH (07:30)
[2017-05-21] MEDS: SODIUM CHLORIDE 0.9% 1000ML 1,000 ML IV SCH ×2 (07:30→16:43)
[2017-05-21] MEDS: ALBUTEROL HFA 8 GM INHALER INH SCH ×4 (07:30→20:04)
[2017-05-21] MEDS: ATORVASTATIN 10 MG TAB PO SCH (07:31)
[2017-05-21] MEDS: AMLODIPINE BESYLATE 5 MG TAB PO SCH (07:31)
[2017-05-21] MEDS: DOCUSATE SODIUM/SENNA 50/8.6MG TAB PO SCH (07:32)
[2017-05-21] MEDS: FINASTERIDE 5 MG TAB PO SCH (07:32)
[2017-05-21] MEDS ORDERED: VANCOMYCIN TROUGH SCH (11:30)
[2017-05-21] MEDS: VANCOMYCIN INJ 1,250 MG in SODIUM CHLORIDE 0.9% 250ML 250 ML IV SCH (12:00)
--- NOTE | 2017-05-21 12:13 | Pharmacy Progress Note ---
Pharmacy Glycemic Short Note 2 Date of Service May 21, 2017. ASSESSMENT: * Pt has received 44 units of insulin over the past 24 hrs * AM fasting BSG is slighlty below goal range @ 88 mg/dl --> will reduce basal insulin dosing * Post-prandial BSGs are in range --> no changes needed to CF/CR * Scr improving, infection is being adequately treated, pt tolerating PO. May need to increase insulin doses back up towards outpatient dosing with these improvements in patient status. Will reassess and continue to titrate insulin based on BSG trends. PLAN FOR INPATIENT GLYCEMIC CONTROL: * Basal insulin: decrease dose * Lantus 15 units SQ HS * Bolus insulin: no change * NovoLog per scale ACHS or Q6hrs while NPO * Goal Range: Low 110 mg/dL - High 140 mg/dL * Correction Factor: 25 mg/dL/unit * Nutritional / Prandial insulin per carb ratio of 1 unit per 8 grams CHO consumed
--- NOTE | 2017-05-21 13:17 | Pharmacy Progress Note ---
Pharmacy Abx Dose Progress Nt Date of Service May 21, 2017. Pharmacy Dosing Scope The patient is currently receiving the following antimicrobial agents per Pharmacy consult: Vancomycin 1250 mg IV every 24 hours Objective Height (Feet): 6 Height (Inches): 0.00 Weight (Kilograms): 79.500 Vital Signs (Past 12Hrs) Vital Signs Past 12 Hours Date Time Temp Pulse Resp B/P (MAP) Pulse Ox O2 Delivery O2 Flow Rate FiO2 05/21/17 12:00 95 Room Air 05/21/17 11:22 36.5 90 20 155/86 (109) 91 Room Air 05/21/17 08:00 95 Room Air 05/21/17 07:59 37.1 89 18 144/82 (102) 95 Room Air 05/21/17 04:00 Room Air 05/21/17 03:30 36.6 89 24 150/88 (108) 94 Lab Results (24Hrs) Laboratory Tests (24 Hours) Test 05/21/17 06:05 White Blood Count 9.95 K/uL (4.8-10.8) Red Blood Count 3.53 M/uL (4.7-6.1) L Hemoglobin 9.5 g/dL (14.0-18.0) L Hematocrit 30.7 % (42-52) L Mean Corpuscular Volume 87.0 fL (80-100) Mean Corpuscular Hemoglobin 26.9 pg (25-34) Mean Corpuscular Hemoglobin Concent 30.9 g/dl (32-36) L Platelet Count 230 K/uL (130-400) Mean Platelet Volume 9.4 fL (7.4-10.4) Neutrophils (%) (Auto) 69.4 % Lymphocytes (%) (Auto) 16.4 % Monocytes (%) (Auto) 10.1 % Eosinophils (%) (Auto) 3.4 % Basophils (%) (Auto) 0.2 % Neutrophils # (Auto) 6.91 K/uL (1.4-6.5) H Lymphocytes # (Auto) 1.63 K/uL (1.2-3.4) Monocytes # (Auto) 1.00 K/uL (0.11-0.59) H Eosinophils # (Auto) 0.34 K/uL (0-0.5) Basophils # (Auto) 0.02 K/uL (0-0.2) Micro Results Date/Time Source Procedure Growth Status 05/19/17 11:46 Blood Blood Culture - Preliminary Staphylococcus Aureus Resulted 05/19/17 11:41 Blood Blood Culture - Preliminary Staphylococcus Aureus Resulted 05/19/17 17:00 Nasal MRSA DNA Surveillance Screen - Final Specimen Positive for MRSA by DNA Probe Complete 05/20/17 11:12 Urine,Catheterized Urine Culture - Preliminary Staphylococcus Aureus Resulted Risk Factors for Resistance * Resident in a senior care or extended-care facility * Hospitalization for 48 hours or more within the past 90 days Assessment & Plan Assessment 71 year old male receiving Vancomycin for treatment of Bacteremia/Sepsis. Day # 3 of antimicrobial therapy Plan Vancomycin IV * Trough level of 11.3 mcg/mL is subtherapeutic but was obtained after only 1 maintenance dose and not at steady state. * Therefore will continue dose of Vancomycin 1250 mg IV every 24 hours. * Goal trough level for Sepsis: 15 to 20 mcg/mL * Trough Vanco level ordered for: 05/23/17 before dose at 1200. * Renal function has improved from 2.17 on 05/19 to 1.67 today. * Blood cultures resulted in Staph aur. and Nasal swab is positive for MRSA. Pharmacy will continue to follow and will adjust dose/frequency as necessary. Thank you.
--- NOTE | 2017-05-21 13:55 | Medical Consult ---
Consultation Date of Consultation: May 21, 2017. Attending Physician: Rico Castelan MD Reason for Consultation: Staph bacteremia History of Present Illness 71-year-old male with history of diabetes mellitus, chronic kidney disease, hypertension, with urinary retention requiring indwelling Bull catheter. Reportedly catheter was recently changed, and patient subsequently developed severe pain associated with the catheter, then fever, chills, and weakness. Was brought to the hospital where he was found to have positive blood and urine cultures for Staph aureus, sensitivities pending. Catheter has been repositioned and pain has resolved. Patient currently being treated with IV vancomycin, now afebrile. Denies any flank pain. Past Medical/Surgical History Medical Problems: (1) Anemia Status: Acute (2) Cutaneous abscess of chest wall Status: Acute (3) Pneumonia Status: Acute (4) Routine lab draw Status: Acute (5) Sepsis Status: Acute (6) UTI (urinary tract infection) Status: Acute Medical Problems: (1) Benign hypertension (2) BPH (benign prostatic hyperplasia) (3) CKD (chronic kidney disease), stage III (4) Diabetes mellitus type 2 (5) GERD (gastroesophageal reflux disease) (6) Hyperlipidemia Surgical Problems: (1) H/O skin graft (2) S/P tonsillectomy Family History Diabetes mellitus SISTER Hypertension MOTHER Social History Smoking Status: Former Smoker Drug Use: none Marital Status: Housing Status: lives alone Occupation Status: retired Allergies Coded Allergies: No Known Allergies (Unverified , 05/19/17) Current Inpatient Medications Current Inpatient Medications Medications (Trade) Dose Ordered Sig/Adolfo Route Start Time Stop Time Status Last Admin Dose Admin Acetaminophen (Tylenol Tab) 650 mg Q4H PRN PO 05/19/17 14:00 06/18/17 13:59 05/20/17 20:09 650 MG Ondansetron HCl (Zofran Inj) 4 mg Q6H PRN IV 05/19/17 14:00 06/18/17 13:59 Insulin Aspart (novoLOG ASPART) SLIDING SCALE If C... ACHS SC 05/19/17 16:00 06/18/17 15:59 05/21/17 11:58 4 UNITS Glucose (Glucose 40% Gel) 15-30 GRAMS 15 GRAMS... UD PRN PO 05/19/17 14:00 06/18/17 13:59 Glucose (Glucose Chew Tab) 4-8 Tablets 4 Tabl... UD PRN PO 05/19/17 14:00 06/18/17 13:59 Dextrose (Dextrose 50% 50ML Syringe) 25-50ML OF 50% DW IV FOR... UD PRN IV 05/19/17 14:00 06/18/17 13:59 Glucagon (Glucagon Inj) 1 mg UD PRN SQ 05/19/17 14:00 06/18/17 13:59 Amlodipine Besylate (Norvasc Tab) 5 mg DAILY PO 05/20/17 09:00 06/19/17 08:59 05/21/17 07:31 5 MG Atorvastatin Calcium (Lipitor Tab) 10 mg DAILY PO 05/20/17 09:00 06/19/17 08:59 05/21/17 07:31 10 MG Finasteride (Proscar Tab) 5 mg QAM PO 05/20/17 09:00 06/19/17 08:59 05/21/17 07:32 5 MG Gabapentin (Neurontin Cap) 100 mg DAILY PO 05/20/17 09:00 06/19/17 08:59 05/21/17 07:30 100 MG Tamsulosin HCl (Flomax Cap) 0.4 mg HS PO 05/19/17 21:00 06/18/17 20:59 05/20/17 20:59 0.4 MG Levofloxacin (Consult) 1 ea UD PRN N/A 05/19/17 14:45 06/18/17 14:44 Vancomycin HCl (Consult) 1 ea UD PRN N/A 05/19/17 14:45 06/18/17 14:44 Vancomycin HCl 1250 mg/Sodium Chloride 275 ml @ 200 mls/hr Q24H IV 05/20/17 12:00 05/27/17 11:59 05/21/17 12:00 200 MLS/HR Levofloxacin 750 mg/Prmx 150 ml @ 100 mls/hr Q48H IV 05/21/17 14:00 05/28/17 13:59 Albuterol (Ventolin Hfa Inhaler) 2 puffs QID INH 05/19/17 17:00 06/18/17 16:59 05/21/17 12:31 2 PUFFS Miscellaneous Information (Consult Glycemic Management Pharmacy) 1 ea UD N/A 05/19/17 15:42 06/18/17 15:41 Sodium Chloride 1,000 ml @ 100 mls/hr Q10H IV 05/20/17 11:00 06/19/17 10:59 05/21/17 07:30 100 MLS/HR Mupirocin (Bactroban 2% Oint) 1 appln DAILY EXT 05/20/17 11:00 05/24/17 09:01 05/21/17 07:30 1 APPLN Senna/Docusate Sodium (Senokot S Tab) 1 tab QAM PO 05/21/17 09:00 06/20/17 08:59 05/21/17 07:32 1 TAB Polyethylene (Miralax Powder Packet) 17 gm DAILY PRN PO 05/20/17 11:00 06/19/17 10:59 Bisacodyl (Dulcolax Supp) 10 mg DAILY PRN VT 05/20/17 11:00 06/19/17 10:59 Insulin Glargine (Lantus Solostar Pen) 15 units HS SC 05/21/17 21:00 06/20/17 20:59 Review of Systems Constitutional: + weakness, No fever Eyes: No problem reported ENT: No problem reported Respiratory: No problem reported Cardiovascular: No problem reported Abdomen: No problem reported Musculoskeletal: No problem reported Genitourinary - Male: + problem reported (See HPI) Neurologic: + weakness, + balance problems Psychiatric: No problem reported Endocrine: No problem reported Hematologic / Lymphatic: No problem reported Integumentary: No problem reported Allergic / Immunologic: No problem reported Physical Exam Date Time Temp Pulse Resp B/P (MAP) Pulse Ox O2 Delivery O2 Flow Rate FiO2 05/21/17 12:00 95 Room Air 05/21/17 11:22 36.5 90 20 155/86 (109) 91 Room Air 05/21/17 08:00 95 Room Air 05/21/17 07:59 37.1 89 18 144/82 (102) 95 Room Air 05/21/17 04:00 Room Air 05/21/17 03:30 36.6 89 24 150/88 (108) 94 05/21/17 00:00 37.4 16 126/73 (90) 94 Room Air 05/21/17 00:00 94 Room Air 05/20/17 20:55 36.9 88 133/74 94 05/20/17 20:00 Room Air 05/20/17 19:42 37.0 89 22 131/74 (93) 93 Room Air 05/20/17 19:28 37.3 113/60 05/20/17 18:56 93 123/66 05/20/17 18:34 92 Room Air 05/20/17 18:30 37.5 94 110/62 05/20/17 18:15 37.5 92 107/63 05/20/17 17:52 37.3 94 112/60 92 05/20/17 16:32 37.1 95 20 127/70 93 05/20/17 15:57 36.5 94 20 117/65 (82) 92 Room Air 05/20/17 15:30 37.6 92 116/66 93 05/20/17 15:00 37.4 94 131/73 05/20/17 14:21 36.7 94 20 119/67 93 05/20/17 14:07 37.1 96 20 104/57 91 General Appearance: WD/WN, no apparent distress Head: normocephalic, atraumatic Eyes: sclerae normal, + pertinent finding (Right eye blindness) ENT: normal ENT inspection, hearing grossly normal, pharynx normal Neck: supple, no adenopathy, thyroid normal, trachea midline Respiratory/Chest: chest non-tender, lungs clear, normal breath sounds, no respiratory distress Cardiovascular: regular rate, rhythm, no gallop, no murmur Abdomen/GI: normal bowel sounds, non tender, soft, no organomegaly Genitourinary - Male: + pertinent finding (Bull draining clear urine) Back: normal inspection, no CVA tenderness Extremities/Musculoskelatal: no calf tenderness, non-tender Neurologic/Psych: alert, oriented x 3 Skin: normal color, warm/dry, no rash Lymphatic: no adenopathy Laboratory Results Results Past 24 Hours Test 05/20/17 16:44 05/20/17 20:44 05/20/17 22:39 05/21/17 06:05 Range/Units Bedside Glucose 72 97 70-99 mg/dl Hemoglobin 9.4 9.5 14.0-18.0 g/dL Hematocrit 29.0 30.7 42-52 % White Blood Count 9.95 4.8-10.8 K/uL Red Blood Count 3.53 4.7-6.1 M/uL Mean Corpuscular Volume 87.0 80-100 fL Mean Corpuscular Hemoglobin 26.9 25-34 pg Mean Corpuscular Hemoglobin Concent 30.9 32-36 g/dl Platelet Count 230 130-400 K/uL Mean Platelet Volume 9.4 7.4-10.4 fL Neutrophils (%) (Auto) 69.4 % Lymphocytes (%) (Auto) 16.4 % Monocytes (%) (Auto) 10.1 % Eosinophils (%) (Auto) 3.4 % Basophils (%) (Auto) 0.2 % Neutrophils # (Auto) 6.91 1.4-6.5 K/uL Lymphocytes # (Auto) 1.63 1.2-3.4 K/uL Monocytes # (Auto) 1.00 0.11-0.59 K/uL Eosinophils # (Auto) 0.34 0-0.5 K/uL Basophils # (Auto) 0.02 0-0.2 K/uL RDW Standard Deviation 45.5 36.4-46.3 fL RDW Coefficient of Variation 14.4 11.5-14.5 % Immature Granulocyte % (Auto) 0.5 % Immature Granulocyte # (Auto) 0.05 0.00-0.02 K/uL Sodium Level 143 136-145 mmol/L Potassium Level 4.2 3.5-5.1 mmol/L Chloride Level 110 98-107 mmol/L Carbon Dioxide Level 25 21-32 mmol/L Anion Gap 8.0 3-11 mmol/L Blood Urea Nitrogen 32 7-18 mg/dl Creatinine 1.67 0.60-1.40 mg/dl Est Creatinine Clear Calc Drug Dose 44.5 ml/min Estimated GFR () 47.0 Estimated GFR (Non- 40.6 BUN/Creatinine Ratio 19.1 10-20 Random Glucose 54 70-99 mg/dl Calcium Level 8.4 8.5-10.1 mg/dl Iron Level 73 35-175 mcg/dl Total Iron Binding Capacity 162 250-450 mcg/dl Transferrin 135 200-360 mg/dl Transferrin % Saturation 39 20-50 % Ferritin 495.4 8.0-388.0 ng/ml Vitamin B12 Level 381 211-911 pg/mL Folate 16.41 >5.38 ng/mL Test 05/21/17 07:10 05/21/17 10:57 05/21/17 12:03 Range/Units Bedside Glucose 88 161 70-99 mg/dl Vancomycin Level Trough 11.3 SEE COMMENT mcg/ml RUN DATE: 05/21/17 [facility] PAGE 1 RUN TIME: 1302 Specimen Inquiry PATIENT: ABDIEL MORATAYA LOC: [facility] U # : [id number] AGE/SX: 71/M ROOM: [facility] REG : 05/19/[address]: Rico Castelan MD : 1945 BED: 1 DIS : STATUS: ADM IN TLOC: SPEC #: [id number] JAYME: 05/19/17-114 STATUS: RES REQ #: [id number] RECD: 05/19/[address]: Cesar Hernández MD SOURCE: BLOOD ENTR: 05/19/17-[address]: Komal Doctor, Assigned [facility]: ORDERED: BLOOD CULTURE COMMENTS: Comments to Biometrician SAME TIME, DIFFERENT SITES Procedure Result Verified Site BLD CULT Preliminary 05/21/17-1302 Organism 1 STAPHYLOCOCCUS AUREUS SENS NO SENSITIVITY TO FOLLOW Phoned Positive Blood Culture Gram Stain Report to MINERVA PAYNE on 05/21/17 At 0116 By Celeno. Results were verbalized back to [employer]. PLEASE SEE CULTURE NUMBER [id number] FOR SENSITIVITIES. Patient Name: ABDIEL MORATAYA Unit Number: [id number] Dictated: 05/20/171253 Transcribed: 05/20/171253 MS Printed Date/Time: [~ rep prt dt]/[~ rep prt tm] [~ rep ct labl] - [~ rep ct ivnm] [facility] [place] [address] Dictated: 05/20/171253 Transcribed: 05/20/17 1254 MS Printed Date/Time: [~ rep prt dt]/[~ rep prt tm] [~ rep ct labl] - [~ rep ct ivnm] [~ rep ct add3]] (CHEST) THORAX WITHOUT CT DOSE: 434.51 mGy.cm HISTORY: Dyspnea. Infection. r/o pneumonia TECHNIQUE: Multiaxial CT images of the chest were performed without contrast. A dose lowering technique was utilized adhering to the principles of ALARA. COMPARISON: None. FINDINGS: Mild bibasilar atelectasis. Slight basilar interstitial prominence. No well-defined focal infiltrate. Moderate abscess chronic change and ectasia thoracic aorta. No evidence for aneurysm. IMPRESSION: 1. Mild chronic basilar interstitial and atelectatic change. 2. No focal infiltrate The above report was generated using voice recognition software. It may contain grammatical, syntax or spelling errors. Electronically signed by: Taz Rios M.D. 05/20/2017 12:59 PM Dictated Date/Time: 05/20/2017 12:54 PM The status of this report is Signed. Draft = Not yet reviewed or approved by Radiologist. Signed = Reviewed and approved by Radiologist. <AttendingPhy>Rico Castelan MD</AttendingPhy> <FamilyPhy>No Doctor, Assigned</FamilyPhy> <PrimaryPhy>Ely Hernandez D.O.</PrimaryPhy> <UnitNumber> [id number]</UnitNumber> <VisitNumber>[id number]</VisitNumber> <PatientName> ABDIEL MORATAYA</PatientName> <DateOfBirth>1945</DateOfBirth> <Location> C.2E</Location> <ServiceDate>05/19/17</ServiceDate> <MNE>ESINDI</MNE> < OrderingPhy>Rico Castelan MD</OrderingPhy> <OrderingPhyMNE>f rep ord dr salguero< /OrderingPhyMNE> <DictatingPhyMNE>f rep dict dr salguero</DictatingPhyMNE> <CCListMNE >f rep ct mne</CCListMNE> <AdmittingPhyMNE>f pt admit dr salguero</AdmittingPhyMNE> < AttendingPhyMNE>f pt attend dr salguero</AttendingPhyMNE> <ConsultingPhyMNE>f pt consult dr salguero</ConsultingPhyMNE> <FamilyPhyMNE>f pt fam dr salguero</FamilyPhyMNE> <OtherPhyMNE>f pt other dr salguero</OtherPhyMNE> < PrimaryPhyMNE>f pt prim care dr salguero</PrimaryPhyMNE> <ReferringPhyMNE>f pt referring dr salguero</ReferringPhyMNE> Last 24 Hours Test 05/20/17 16:44 05/20/17 20:44 05/20/17 22:39 05/21/17 06:05 Bedside Glucose 72 mg/dl 97 mg/dl Hemoglobin 9.4 g/dL 9.5 g/dL Hematocrit 29.0 % 30.7 % White Blood Count 9.95 K/uL Red Blood Count 3.53 M/uL Mean Corpuscular Volume 87.0 fL Mean Corpuscular Hemoglobin 26.9 pg Mean Corpuscular Hemoglobin Concent 30.9 g/dl Platelet Count 230 K/uL Mean Platelet Volume 9.4 fL Neutrophils (%) (Auto) 69.4 % Lymphocytes (%) (Auto) 16.4 % Monocytes (%) (Auto) 10.1 % Eosinophils (%) (Auto) 3.4 % Basophils (%) (Auto) 0.2 % Neutrophils # (Auto) 6.91 K/uL Lymphocytes # (Auto) 1.63 K/uL Monocytes # (Auto) 1.00 K/uL Eosinophils # (Auto) 0.34 K/uL Basophils # (Auto) 0.02 K/uL RDW Standard Deviation 45.5 fL RDW Coefficient of Variation 14.4 % Immature Granulocyte % (Auto) 0.5 % Immature Granulocyte # (Auto) 0.05 K/uL Sodium Level 143 mmol/L Potassium Level 4.2 mmol/L Chloride Level 110 mmol/L Carbon Dioxide Level 25 mmol/L Anion Gap 8.0 mmol/L Blood Urea Nitrogen 32 mg/dl Creatinine 1.67 mg/dl Est Creatinine Clear Calc Drug Dose 44.5 ml/min Estimated GFR () 47.0 Estimated GFR (Non- 40.6 BUN/Creatinine Ratio 19.1 Random Glucose 54 mg/dl Calcium Level 8.4 mg/dl Iron Level 73 mcg/dl Total Iron Binding Capacity 162 mcg/dl Transferrin 135 mg/dl Transferrin % Saturation 39 % Ferritin 495.4 ng/ml Vitamin B12 Level 381 pg/mL Folate 16.41 ng/mL Test 05/21/17 07:10 05/21/17 10:57 05/21/17 12:03 Bedside Glucose 88 mg/dl 161 mg/dl Vancomycin Level Trough 11.3 mcg/ml Assessment & Plan Staph aureus sepsis, likely MRSA given positive MRSA screen, from improperly placed catheter with subsequent purulent urinary tract infection. Patient will require 2 weeks of IV therapy given positive blood cultures, and would continue vancomycin pending final identification and sensitivities. Will follow.
[2017-05-21] MEDS ORDERED: LEVOFLOXACIN / D5W 750 MG in PREMIXED IN D5W 150 ML IV SCH (14:00)
--- NOTE | 2017-05-21 16:20 | Progress Note ---
Medicine Progress Note Date & Time of Visit: May 21, 2017 at 16:11. Subjective patient seen resting in bed, comfortable states he had sweats overnight, feels improved today denies abdominal pain, pain on his urethra no active bleeding per urethra observed today per RN denies chest pain, dyspnea, headache, dizziness no other symptoms Objective Last 8 Hrs Date Time Temp Pulse Resp B/P (MAP) Pulse Ox O2 Delivery O2 Flow Rate FiO2 05/21/17 16:00 95 Room Air 05/21/17 15:52 36.6 89 20 143/79 (100) 93 Room Air 05/21/17 12:00 95 Room Air 05/21/17 11:22 36.5 90 20 155/86 (109) 91 Room Air Physical Exam: General- oriented x 2, not in distress, speaks in sentences with no effort Eyes- EOMI, anicteric ENT- oropharynx clear Neck- no JVD Lungs- clear breath sounds bilaterally Heart- regular rhythm; no murmur, normal rate Abdomen- normal bowel sounds, soft, nontender (+) english cath in place- no active bleeding per urethra Extremities- no pretibial edema, no calf tenderness; peripheral pulses intact Neuro- alert, oriented x 3; no gross focal deficits Skin- warm & dry Laboratory Results: Last 24 Hours Test 05/20/17 16:44 05/20/17 20:44 05/20/17 22:39 05/21/17 06:05 Bedside Glucose 72 mg/dl 97 mg/dl Hemoglobin 9.4 g/dL 9.5 g/dL Hematocrit 29.0 % 30.7 % White Blood Count 9.95 K/uL Red Blood Count 3.53 M/uL Mean Corpuscular Volume 87.0 fL Mean Corpuscular Hemoglobin 26.9 pg Mean Corpuscular Hemoglobin Concent 30.9 g/dl Platelet Count 230 K/uL Mean Platelet Volume 9.4 fL Neutrophils (%) (Auto) 69.4 % Lymphocytes (%) (Auto) 16.4 % Monocytes (%) (Auto) 10.1 % Eosinophils (%) (Auto) 3.4 % Basophils (%) (Auto) 0.2 % Neutrophils # (Auto) 6.91 K/uL Lymphocytes # (Auto) 1.63 K/uL Monocytes # (Auto) 1.00 K/uL Eosinophils # (Auto) 0.34 K/uL Basophils # (Auto) 0.02 K/uL RDW Standard Deviation 45.5 fL RDW Coefficient of Variation 14.4 % Immature Granulocyte % (Auto) 0.5 % Immature Granulocyte # (Auto) 0.05 K/uL Sodium Level 143 mmol/L Potassium Level 4.2 mmol/L Chloride Level 110 mmol/L Carbon Dioxide Level 25 mmol/L Anion Gap 8.0 mmol/L Blood Urea Nitrogen 32 mg/dl Creatinine 1.67 mg/dl Est Creatinine Clear Calc Drug Dose 44.5 ml/min Estimated GFR () 47.0 Estimated GFR (Non- 40.6 BUN/Creatinine Ratio 19.1 Random Glucose 54 mg/dl Calcium Level 8.4 mg/dl Iron Level 73 mcg/dl Total Iron Binding Capacity 162 mcg/dl Transferrin 135 mg/dl Transferrin % Saturation 39 % Ferritin 495.4 ng/ml Vitamin B12 Level 381 pg/mL Folate 16.41 ng/mL Test 05/21/17 07:10 05/21/17 10:57 05/21/17 12:03 Bedside Glucose 88 mg/dl 161 mg/dl Vancomycin Level Trough 11.3 mcg/ml Assessment & Plan This is a 71yo M who resides at [facility] with a PMH of DM II (uncontrolled) , HTN, HLD, CKD III and urinary retention (with a english) who presents with dysuria, penile pain and generalized weakness. 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 Gentile' input Dr. Arteaga consulted, recommend 2 weeks IV antibiotics will need PICC/Midline prior to discharge Pneumonia ruled out CHF exacerbation unlikely Hypoxia, Resolved - possible Atelectasis? -- lung sounds clear CT chest: no signs of pneumonia weaned off oxygen AXEL on CKD III: -Cr elevated to 2.17 (baseline is 1.2) -Likely multifactorial: poor PO intake in addition to possible obstruction 2/2 BPH, urinary retention -Denies NSAID use -- likely from Sepsis, Post Renal- Obstruction -- crea improving 2.17 --> 1.67 continue gentle IV fluids, monitor crea Acute Blood Loss Anemia on Chronic anemia: -- Hg down to 7.0 likely from Hematuria -- Hemoccult pending -- s/p 2 units PRBC transfusion Hg improved to 9 -- check Anemia panel: iron normal DM II: A1c 11.1 -Hold home regimen -Basal bolus regimen while in-patient - on Lantus and ISS Pharmacy consulted HTN: -Normotensive -Cont home amlodipine with hold parameters HLD: -Continue statin DVT Ppx: SCDs only in light of hematuria, anemia Code status: FULL PCP: David Dispo: anticipate d/c back to [facility] will need 2 weeks IV antibiotics, PICC line Current Inpatient Medications: Current Inpatient Medications Medications (Trade) Dose Ordered Sig/Adolfo Route Start Time Stop Time Status Last Admin Dose Admin Acetaminophen (Tylenol Tab) 650 mg Q4H PRN PO 05/19/17 14:00 06/18/17 13:59 05/20/17 20:09 650 MG Ondansetron HCl (Zofran Inj) 4 mg Q6H PRN IV 05/19/17 14:00 06/18/17 13:59 Insulin Aspart (novoLOG ASPART) SLIDING SCALE If C... ACHS SC 05/19/17 16:00 06/18/17 15:59 05/21/17 11:58 4 UNITS Glucose (Glucose 40% Gel) 15-30 GRAMS 15 GRAMS... UD PRN PO 05/19/17 14:00 06/18/17 13:59 Glucose (Glucose Chew Tab) 4-8 Tablets 4 Tabl... UD PRN PO 05/19/17 14:00 06/18/17 13:59 Dextrose (Dextrose 50% 50ML Syringe) 25-50ML OF 50% DW IV FOR... UD PRN IV 05/19/17 14:00 06/18/17 13:59 Glucagon (Glucagon Inj) 1 mg UD PRN SQ 05/19/17 14:00 12/16/17 13:59 Amlodipine Besylate (Norvasc Tab) 5 mg DAILY PO 05/20/17 09:00 06/19/17 08:59 05/21/17 07:31 5 MG Atorvastatin Calcium (Lipitor Tab) 10 mg DAILY PO 05/20/17 09:00 06/19/17 08:59 05/21/17 07:31 10 MG Finasteride (Proscar Tab) 5 mg QAM PO 05/20/17 09:00 06/19/17 08:59 05/21/17 07:32 5 MG Gabapentin (Neurontin Cap) 100 mg DAILY PO 05/20/17 09:00 06/19/17 08:59 05/21/17 07:30 100 MG Tamsulosin HCl (Flomax Cap) 0.4 mg HS PO 05/19/17 21:00 06/18/17 20:59 05/20/17 20:59 0.4 MG Levofloxacin (Consult) 1 ea UD PRN N/A 05/19/17 14:45 06/18/17 14:44 Vancomycin HCl (Consult) 1 ea UD PRN N/A 05/19/17 14:45 06/18/17 14:44 Vancomycin HCl 1250 mg/Sodium Chloride 275 ml @ 200 mls/hr Q24H IV 05/20/17 12:00 05/27/17 11:59 05/21/17 12:00 200 MLS/HR Levofloxacin 750 mg/Prmx 150 ml @ 100 mls/hr Q48H IV 05/21/17 14:00 05/28/17 13:59 05/21/17 14:56 100 MLS/HR Albuterol (Ventolin Hfa Inhaler) 2 puffs QID INH 05/19/17 17:00 06/18/17 16:59 05/21/17 12:31 2 PUFFS Miscellaneous Information (Consult Glycemic Management Pharmacy) 1 ea UD N/A 05/19/17 15:42 06/18/17 15:41 Sodium Chloride 1,000 ml @ 100 mls/hr Q10H IV 05/20/17 11:00 06/19/17 10:59 05/21/17 07:30 100 MLS/HR Mupirocin (Bactroban 2% Oint) 1 appln DAILY EXT 05/20/17 11:00 05/24/17 09:01 11/18/17 07:30 1 APPLN Senna/Docusate Sodium (Senokot S Tab) 1 tab QAM PO 05/21/17 09:00 06/20/17 08:59 05/21/17 07:32 1 TAB Polyethylene (Miralax Powder Packet) 17 gm DAILY PRN PO 05/20/17 11:00 06/19/17 10:59 Bisacodyl (Dulcolax Supp) 10 mg DAILY PRN [place] 05/20/17 11:00 06/19/17 10:59 Insulin Glargine (Lantus Solostar Pen) 15 units HS SC 05/21/17 21:00 06/20/17 20:59
[2017-05-21] MEDS: TAMSULOSIN HCL 0.4 MG CAP PO SCH (20:04)
[2017-05-21] MEDS: INSULIN GLARGINE SOLOSTAR 100 UNITS/ML 3 ML PEN SC SCH (21:49)
[2017-05-22 00:14] VITALS: BP 151/82; PULSE 98; TEMP 36.5; O2SAT 90
[2017-05-22] MEDS: SODIUM CHLORIDE 0.9% 1000ML 1,000 ML IV SCH ×2 (06:38→19:37)
[2017-05-22 06:54] LABS: BASO % 0.3 %; BASO ABS # 0.02 K/uL (0-0.2); COMPLETE YES; EOS % 4.5 %; HEMATOCRIT 32.1 % (42-52); IG% 0.4 %; LYMPH % 17.4 %; LYMPH ABS # 1.34 K/uL (1.2-3.4); MEAN CELL VOLUME 86.5 fL (80-100); MEAN CORPUSCULAR HEMOGLOBIN 27.2 pg (25-34); MEAN CORPUSCULAR HGB CONC 31.5 g/dl (32-36); MEAN PLATELET VOLUME 9.2 fL (7.4-10.4); MONO % 12.3 %; NEUT % 65.1 %; PLATELET COUNT 249 K/uL (130-400); RED BLOOD COUNT 3.71 M/uL (4.7-6.1); WHITE BLOOD COUNT 7.72 K/uL (4.8-10.8)
[2017-05-22 07:06] VITALS: BP 147/80; PULSE 78; TEMP 36.8; O2SAT 98
[2017-05-22 07:21] LABS: CALCIUM 8.5 mg/dl (8.5-10.1); CREATININE 1.59 mg/dl (0.60-1.40); POTASSIUM 4.5 mmol/L (3.5-5.1)
[2017-05-22] MEDS ORDERED: INSPMPRGR SC (08:00)
[2017-05-22] MEDS: AMLODIPINE BESYLATE 5 MG TAB PO SCH (08:10)
[2017-05-22] MEDS: DOCUSATE SODIUM/SENNA 50/8.6MG TAB PO SCH (08:10)
[2017-05-22] MEDS: FINASTERIDE 5 MG TAB PO SCH (08:10)
[2017-05-22] MEDS: GABAPENTIN 100 MG CAP PO SCH (08:10)
[2017-05-22] MEDS: ATORVASTATIN 10 MG TAB PO SCH (08:10)
[2017-05-22] MEDS: MUPIROCIN 2% OINT 22 GM TUBE EXT SCH (08:11)
[2017-05-22] MEDS: ALBUTEROL HFA 8 GM INHALER INH SCH ×4 (08:11→19:36)
[2017-05-22] MEDS: INSULIN ASPART 100 UNITS/ML 3 ML PEN SC SCH ×4 (08:47→20:21)
--- NOTE | 2017-05-22 10:58 | Progress Note ---
Medicine Progress Note Date & Time of Visit: May 22, 2017 at 10:58. Subjective seen resting in bed, comfortable states he continues to feel improved denies fever/chills no hematuria denies other symptoms Objective Last 8 Hrs Date Time Temp Pulse Resp B/P (MAP) Pulse Ox O2 Delivery O2 Flow Rate FiO2 05/22/17 08:00 Room Air 05/22/17 07:06 36.8 78 18 147/80 (102) 98 Room Air Physical Exam: General- oriented x 2, not in distress, speaks in sentences with no effort Eyes- anicteric Neck- no JVD Lungs- clear breath sounds bilaterally, no rales/wheezes Heart- regular rhythm; no murmur, normal rate Abdomen- normal bowel sounds, soft, nontender (+) english cath in place- no active bleeding per urethra Extremities- no pretibial edema, no calf tenderness Neuro- alert, oriented x 3; no gross focal deficits Skin- warm & dry Laboratory Results: Last 24 Hours Test 05/21/17 12:03 05/21/17 16:23 05/21/17 20:21 05/22/17 06:20 Vancomycin Level Trough 11.3 mcg/ml Bedside Glucose 138 mg/dl 109 mg/dl White Blood Count 7.72 K/uL Red Blood Count 3.71 M/uL Hemoglobin 10.1 g/dL Hematocrit 32.1 % Mean Corpuscular Volume 86.5 fL Mean Corpuscular Hemoglobin 27.2 pg Mean Corpuscular Hemoglobin Concent 31.5 g/dl Platelet Count 249 K/uL Mean Platelet Volume 9.2 fL Neutrophils (%) (Auto) 65.1 % Lymphocytes (%) (Auto) 17.4 % Monocytes (%) (Auto) 12.3 % Eosinophils (%) (Auto) 4.5 % Basophils (%) (Auto) 0.3 % Neutrophils # (Auto) 5.03 K/uL Lymphocytes # (Auto) 1.34 K/uL Monocytes # (Auto) 0.95 K/uL Eosinophils # (Auto) 0.35 K/uL Basophils # (Auto) 0.02 K/uL RDW Standard Deviation 44.9 fL RDW Coefficient of Variation 14.2 % Immature Granulocyte % (Auto) 0.4 % Immature Granulocyte # (Auto) 0.03 K/uL Sodium Level 140 mmol/L Potassium Level 4.5 mmol/L Chloride Level 109 mmol/L Carbon Dioxide Level 26 mmol/L Anion Gap 5.0 mmol/L Blood Urea Nitrogen 25 mg/dl Creatinine 1.59 mg/dl Est Creatinine Clear Calc Drug Dose 46.8 ml/min Estimated GFR () 49.9 Estimated GFR (Non- 43.0 BUN/Creatinine Ratio 16.0 Random Glucose 184 mg/dl Calcium Level 8.5 mg/dl Test 05/22/17 07:33 Bedside Glucose 145 mg/dl Assessment & Plan This is a 71yo M who resides at [facility] with a PMH of DM II (uncontrolled) , HTN, HLD, CKD III and urinary retention (with a english) who presents with dysuria, penile pain and generalized weakness. 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 Gentile' input Dr. Arteaga consulted, recommend 2 weeks IV antibiotics will need PICC/Midline prior to discharge Pneumonia ruled out CHF exacerbation unlikely Hypoxia, Resolved - possible Atelectasis? -- lung sounds clear CT chest: no signs of pneumonia weaned off oxygen AXEL on CKD III: -Cr elevated to 2.17 (baseline is 1.2) -Likely multifactorial: poor PO intake in addition to possible obstruction 2/2 BPH, urinary retention -Denies NSAID use -- likely from Sepsis, Post Renal- Obstruction -- crea improving 2.17 --> 1.67--> 1.59 continue gentle IV fluids, monitor crea Acute Blood Loss Anemia on Chronic anemia: -- Hg down to 7.0 likely from Hematuria -- Hemoccult pending -- s/p 2 units PRBC transfusion Hg improved to 9 -- check Anemia panel: iron normal DM II: A1c 11.1 -Hold home regimen -Basal bolus regimen while in-patient - on Lantus and ISS Pharmacy consulted HTN: -Normotensive -Cont home amlodipine with hold parameters HLD: -Continue statin DVT Ppx: SCDs only in light of hematuria, anemia Code status: FULL PCP: David Dispo: anticipate d/c back to [facility] will need 2 weeks IV antibiotics, PICC line Current Inpatient Medications: Current Inpatient Medications Medications (Trade) Dose Ordered Sig/Adolfo Route Start Time Stop Time Status Last Admin Dose Admin Acetaminophen (Tylenol Tab) 650 mg Q4H PRN PO 05/19/17 14:00 06/18/17 13:59 05/20/17 20:09 650 MG Ondansetron HCl (Zofran Inj) 4 mg Q6H PRN IV 05/19/17 14:00 06/18/17 13:59 Insulin Aspart (novoLOG ASPART) SLIDING SCALE If C... ACHS SC 05/19/17 16:00 06/18/17 15:59 05/22/17 08:47 9 UNITS Glucose (Glucose 40% Gel) 15-30 GRAMS 15 GRAMS... UD PRN PO 05/19/17 14:00 06/18/17 13:59 Glucose (Glucose Chew Tab) 4-8 Tablets 4 Tabl... UD PRN PO 05/19/17 14:00 06/18/17 13:59 Dextrose (Dextrose 50% 50ML Syringe) 25-50ML OF 50% DW IV FOR... UD PRN IV 05/19/17 14:00 06/18/17 13:59 Glucagon (Glucagon Inj) 1 mg UD PRN SQ 05/19/17 14:00 06/18/17 13:59 Amlodipine Besylate (Norvasc Tab) 5 mg DAILY PO 05/20/17 09:00 06/19/17 08:59 05/22/17 08:10 5 MG Atorvastatin Calcium (Lipitor Tab) 10 mg DAILY PO 05/20/17 09:00 06/19/17 08:59 05/22/17 08:10 10 MG Finasteride (Proscar Tab) 5 mg QAM PO 05/20/17 09:00 06/19/17 08:59 05/22/17 08:10 5 MG Gabapentin (Neurontin Cap) 100 mg DAILY PO 05/20/17 09:00 06/19/17 08:59 05/22/17 08:10 100 MG Tamsulosin HCl (Flomax Cap) 0.4 mg HS PO 05/19/17 21:00 06/18/17 20:59 05/21/17 20:04 0.4 MG Levofloxacin (Consult) 1 ea UD PRN N/A 05/19/17 14:45 06/18/17 14:44 Vancomycin HCl (Consult) 1 ea UD PRN N/A 05/19/17 14:45 06/18/17 14:44 Vancomycin HCl 1250 mg/Sodium Chloride 275 ml @ 200 mls/hr Q24H IV 05/20/17 12:00 05/27/17 11:59 05/21/17 12:00 200 MLS/HR Levofloxacin 750 mg/Prmx 150 ml @ 100 mls/hr Q48H IV 05/21/17 14:00 05/28/17 13:59 05/21/17 14:56 100 MLS/HR Albuterol (Ventolin Hfa Inhaler) 2 puffs QID INH 05/19/17 17:00 06/18/17 16:59 05/22/17 08:11 2 PUFFS Miscellaneous Information (Consult Glycemic Management Pharmacy) 1 UD N/A 05/19/17 15:42 06/18/17 15:41 Sodium Chloride 1,000 ml @ 75 mls/hr [id number] IV 05/20/17 11:00 06/19/17 10:59 05/22/17 06:38 75 MLS/HR Mupirocin (Bactroban 2% Oint) 1 appln DAILY EXT 05/20/17 11:00 05/24/17 09:01 05/22/17 08:11 1 APPLN Senna/Docusate Sodium (Senokot S Tab) 1 tab QAM PO 05/21/17 09:00 06/20/17 08:59 05/22/17 08:10 1 TAB Polyethylene (Miralax Powder Packet) 17 gm DAILY PRN PO 05/20/17 11:00 06/19/17 10:59 Bisacodyl (Dulcolax Supp) 10 mg DAILY PRN [place] 05/20/17 11:00 06/19/17 10:59 Insulin Glargine (Lantus Solostar Pen) 15 units HS SC 05/21/17 21:00 06/20/17 20:59 05/21/17 21:49 15 UNITS
--- NOTE | 2017-05-22 11:54 | Pharmacy Progress Note ---
Glycemic: Assessment & Plan Date of Service May 22, 2017. Assessment & Plan The patient is currently receiving ~30 units of insulin per day. BSGs ranging 109 - 161 mg/dl over the past 24hrs. * Basal insulin: Lantus 15 units every 24 hours given at bedtime * Correctional Insulin: Novolog Correction per scale ACHS Goal Range: Low 110 mg/dL - High 140 mg/dL Correction Factor: 25 mg/dL/unit * Prandial insulin: Per carb ratio of 1 unit per 8 grams CHO consumed BSGs continue to improve, no changes needed to inpatient regimen at this time. Pharmacy will continue to monitor patient daily and write orders per [facility] inpatient glycemic control protocol. Thanks. * Please note that the plan above was derived based on current level of insulin resistance and hospital stress. These recommendations are appropriate for inpatient admission only. Plan of care upon discharge will need to be reassessed to avoid potential outpatient hypo/hyperglycemia.
[2017-05-22] MEDS: VANCOMYCIN INJ 1,250 MG in SODIUM CHLORIDE 0.9% 250ML 250 ML IV SCH (12:28)
[2017-05-22 14:44] VITALS: BP 145/83; PULSE 87; TEMP 36.5; O2SAT 97
[2017-05-22] MEDS: TAMSULOSIN HCL 0.4 MG CAP PO SCH (19:37)
[2017-05-22] MEDS: INSULIN GLARGINE SOLOSTAR 100 UNITS/ML 3 ML PEN SC SCH (20:22)
[2017-05-22 22:47] VITALS: BP 117/65; PULSE 88; TEMP 36.5; O2SAT 94
[2017-05-23 07:16] VITALS: BP 149/79; PULSE 88; TEMP 36.9; O2SAT 94
[2017-05-23] MEDS: AMLODIPINE BESYLATE 5 MG TAB PO SCH (07:43)
[2017-05-23] MEDS: GABAPENTIN 100 MG CAP PO SCH (07:43)
[2017-05-23] MEDS: DOCUSATE SODIUM/SENNA 50/8.6MG TAB PO SCH (07:43)
[2017-05-23] MEDS: ATORVASTATIN 10 MG TAB PO SCH (07:43)
[2017-05-23] MEDS: FINASTERIDE 5 MG TAB PO SCH (07:43)
[2017-05-23] MEDS: MUPIROCIN 2% OINT 22 GM TUBE EXT SCH (07:44)
[2017-05-23] MEDS: ALBUTEROL HFA 8 GM INHALER INH SCH ×3 (07:44→17:39)
[2017-05-23 08:00] VITALS: O2SAT 94
[2017-05-23 08:13] LABS: BASO % 0.5 %; BASO ABS # 0.04 K/uL (0-0.2); COMPLETE YES; EOS % 4.1 %; HEMATOCRIT 33.1 % (42-52); IG% 0.5 %; LYMPH ABS # 1.78 K/uL (1.2-3.4); MEAN CELL VOLUME 87.1 fL (80-100); MEAN CORPUSCULAR HEMOGLOBIN 27.6 pg (25-34); MEAN CORPUSCULAR HGB CONC 31.7 g/dl (32-36); NEUT % 63.9 %; PLATELET COUNT 264 K/uL (130-400)
[2017-05-23 08:48] LABS: BUN/CREATININE RATIO 13.8 (10-20); CALCIUM 8.8 mg/dl (8.5-10.1); CREATININE 1.61 mg/dl (0.60-1.40); POTASSIUM 4.3 mmol/L (3.5-5.1)
[2017-05-23] MEDS: INSULIN ASPART 100 UNITS/ML 3 ML PEN SC SCH ×3 (09:08→17:39)
[2017-05-23] MEDS: SODIUM CHLORIDE 0.9% 1000ML 1,000 ML IV SCH (09:56)
[2017-05-23] MEDS ORDERED: VANCOMYCIN TROUGH ONE (11:30)
[2017-05-23] MEDS: VANCOMYCIN INJ 1,250 MG in SODIUM CHLORIDE 0.9% 250ML 250 ML IV SCH (12:29)
--- NOTE | 2017-05-23 14:27 | Pharmacy Progress Note ---
Pharmacy Antibiotic Prog Note Date of Service May 23, 2017. Subjective The patient is currently receiving vancomycin 1250 mg iv q 24 hrs The patient is currently on day # 5 of IV therapy. Objective Height (Feet): 6 Height (Inches): 0.00 Weight (Kilograms): 79.500 Levels: Item Value Date Time Vancomycin Level Trough 14.5 mcg/ml 05/23/17 1127 Lab Results (24hrs): Test 05/23/17 07:00 05/23/17 07:35 05/23/17 07:52 05/23/17 11:27 Stool Occult Blood NEGATIVE (NEGATIVE) Bedside Glucose 170 mg/dl (70-99) White Blood Count 8.10 K/uL (4.8-10.8) Red Blood Count 3.80 M/uL (4.7-6.1) Hemoglobin 10.5 g/dL (14.0-18.0) Hematocrit 33.1 % (42-52) Mean Corpuscular Volume 87.1 fL (80-100) Mean Corpuscular Hemoglobin 27.6 pg (25-34) Mean Corpuscular Hemoglobin Concent 31.7 g/dl (32-36) Platelet Count 264 K/uL (130-400) Mean Platelet Volume 9.0 fL (7.4-10.4) Neutrophils (%) (Auto) 63.9 % Lymphocytes (%) (Auto) 22.0 % Monocytes (%) (Auto) 9.0 % Eosinophils (%) (Auto) 4.1 % Basophils (%) (Auto) 0.5 % Neutrophils # (Auto) 5.18 K/uL (1.4-6.5) Lymphocytes # (Auto) 1.78 K/uL (1.2-3.4) Monocytes # (Auto) 0.73 K/uL (0.11-0.59) Eosinophils # (Auto) 0.33 K/uL (0-0.5) Basophils # (Auto) 0.04 K/uL (0-0.2) RDW Standard Deviation 45.0 fL (36.4-46.3) RDW Coefficient of Variation 14.3 % (11.5-14.5) Immature Granulocyte % (Auto) 0.5 % Immature Granulocyte # (Auto) 0.04 K/uL (0.00-0.02) Sodium Level 140 mmol/L (136-145) Potassium Level 4.3 mmol/L (3.5-5.1) Chloride Level 107 mmol/L (98-107) Carbon Dioxide Level 25 mmol/L (21-32) Anion Gap 8.0 mmol/L (3-11) Blood Urea Nitrogen 22 mg/dl (7-18) Creatinine 1.61 mg/dl (0.60-1.40) Est Creatinine Clear Calc Drug Dose 46.2 ml/min Estimated GFR () 49.1 Estimated GFR (Non- 42.4 BUN/Creatinine Ratio 13.8 (10-20) Random Glucose 174 mg/dl (70-99) Calcium Level 8.8 mg/dl (8.5-10.1) Vancomycin Level Trough 14.5 mcg/ml (SEE COMMENT) Test 05/23/17 11:30 Bedside Glucose 228 mg/dl (70-99) Micro Results: Item Value Date Time Urine Culture - Final Complete 05/20/17 1112 Urine,Catheterized Staphylococcus Aureus MRSA DNA Surveillance Screen - Final Complete 05/19/17 1700 Nasal Specimen Positive for MRSA by DNA Probe Blood Culture - Final Complete 05/19/17 1146 Blood Staphylococcus Aureus Blood Culture - Preliminary Resulted 05/19/17 1141 Blood Staphylococcus Aureus Assessment & Plan Patient on vancomycin for MRSA bacteremia/PNA. ID is following the patient. Vancomycin: * Trough level this am was slightly subtherapeutic at 14.5 mcg/ml (goal 15-20 mcg/ml for bacteremia, ideally closer to ~20 mcg/ml) * Will increase dose to vancomycin 1500 mg iv q 24 hrs to target a higher trough * Will plan to obtain trough in 3-4 days, or sooner if renal function changes Pharmacy will continue to follow and will adjust dose/frequency as necessary. Thank you
--- NOTE | 2017-05-23 15:13 | Progress Note ---
Medicine Progress Note Date & Time of Visit: May 23, 2017 at 14:58. Subjective seen resting in bed, comfortable just had lunch states he feels fine overall, much better denies fever/chills, abdominal pain no chest pain, dyspnea, dizziness no bleeding per urethra, no urinary symptoms back to baseline states he is ready and would like to be discharged today Objective Last 8 Hrs Date Time Temp Pulse Resp B/P (MAP) Pulse Ox O2 Delivery O2 Flow Rate FiO2 05/23/17 08:00 94 Room Air 05/23/17 07:16 36.9 88 20 149/79 (102) 94 Room Air Physical Exam: General- oriented x 2, not in distress, speaks in sentences with no effort Lungs- clear breath sounds bilaterally, no rales/wheezes Heart- regular rhythm; no murmur, normal rate Abdomen- normal bowel sounds, soft, nontender (+) english cath in place- no active bleeding per urethra Extremities- no pretibial edema, no calf tenderness Neuro- alert, oriented x 3; no gross focal deficits Skin- warm & dry Laboratory Results: Last 24 Hours Test 05/22/17 16:37 05/22/17 19:34 05/23/17 07:00 05/23/17 07:35 Bedside Glucose 90 mg/dl 208 mg/dl 170 mg/dl Stool Occult Blood NEGATIVE Test 05/23/17 07:52 05/23/17 11:27 05/23/17 11:30 White Blood Count 8.10 K/uL Red Blood Count 3.80 M/uL Hemoglobin 10.5 g/dL Hematocrit 33.1 % Mean Corpuscular Volume 87.1 fL Mean Corpuscular Hemoglobin 27.6 pg Mean Corpuscular Hemoglobin Concent 31.7 g/dl Platelet Count 264 K/uL Mean Platelet Volume 9.0 fL Neutrophils (%) (Auto) 63.9 % Lymphocytes (%) (Auto) 22.0 % Monocytes (%) (Auto) 9.0 % Eosinophils (%) (Auto) 4.1 % Basophils (%) (Auto) 0.5 % Neutrophils # (Auto) 5.18 K/uL Lymphocytes # (Auto) 1.78 K/uL Monocytes # (Auto) 0.73 K/uL Eosinophils # (Auto) 0.33 K/uL Basophils # (Auto) 0.04 K/uL RDW Standard Deviation 45.0 fL RDW Coefficient of Variation 14.3 % Immature Granulocyte % (Auto) 0.5 % Immature Granulocyte # (Auto) 0.04 K/uL Sodium Level 140 mmol/L Potassium Level 4.3 mmol/L Chloride Level 107 mmol/L Carbon Dioxide Level 25 mmol/L Anion Gap 8.0 mmol/L Blood Urea Nitrogen 22 mg/dl Creatinine 1.61 mg/dl Est Creatinine Clear Calc Drug Dose 46.2 ml/min Estimated GFR () 49.1 Estimated GFR (Non- 42.4 BUN/Creatinine Ratio 13.8 Random Glucose 174 mg/dl Calcium Level 8.8 mg/dl Vancomycin Level Trough 14.5 mcg/ml Bedside Glucose 228 mg/dl Assessment & Plan This is a 71yo M who resides at [facility] with a PMH of DM II (uncontrolled) , HTN, HLD, CKD III and urinary retention (with a english) who presents with dysuria, penile pain and generalized weakness. 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 Gentile, ff up with Dr. Gentile as outpatient in 1-[address] Arteaga consulted, recommend total of 2 weeks IV Vancomycin, will need Vancomycin IV x 9 more days check with Dr. Arteaga re: CBC, PRP, Vanco level monitoring, ff up with Dr. Arteaga in 1-2 weeks monitor PICC line Pneumonia ruled out CHF exacerbation unlikely Hypoxia, Resolved - possible Atelectasis? -- lung sounds clear CT chest: no signs of pneumonia weaned off oxygen ACUTE RENAL FAILURE on CKD III: -Cr elevated to 2.17 (baseline is 1.2) -Likely multifactorial: poor PO intake in addition to possible obstruction 2/2 BPH, urinary retention -Denies NSAID use -- likely from Sepsis, Post Renal- Obstruction -- crea improving 2.17 --> 1.67--> 1.59--> 1.6 given IV fluids -- monitor crea closely avoid NSAIDs, Nephrotoxins Acute Blood Loss Anemia on Chronic anemia: -- Hg down to 7.0 likely from Hematuria -- Hemoccult negative -- s/p 2 units PRBC transfusion Hg improved to 9 -- Anemia panel: iron normal -- monitor Hg DM II: A1c 11.1 - recommendation: * Basal insulin: Lantus 15 units every 24 hours given at bedtime * Correctional Insulin: Novolog Correction per scale ACHS Goal Range: Low 110 mg/dL - High 140 mg/dL Correction Factor: 25 mg/dL/unit * Prandial insulin: Per carb ratio of 1 unit per 8 grams CHO consumed -- monitor HTN: -Normotensive -Cont home amlodipine with hold parameters HLD: -Continue statin DVT Ppx: SCDs only in light of hematuria, anemia Code status: FULL PCP: Dr. Hernandez Dispo: discharge to [facility] ff up with PCP Dr. Ely Hernandez in 1 week. ff up with [facility] in 1 week. ff up with Urologist Dr. Gentile in 1-2 weeks. Current Inpatient Medications: Current Inpatient Medications Medications (Trade) Dose Ordered Sig/Adolfo Route Start Time Stop Time Status Last Admin Dose Admin Acetaminophen (Tylenol Tab) 650 mg Q4H PRN PO 05/19/17 14:00 06/18/17 13:59 05/20/17 20:09 650 MG Ondansetron HCl (Zofran Inj) 4 mg Q6H PRN IV 05/19/17 14:00 06/18/17 13:59 Insulin Aspart (novoLOG ASPART) SLIDING SCALE If C... ACHS SC 05/19/17 16:00 06/18/17 15:59 05/23/17 12:49 10 UNITS Glucose (Glucose 40% Gel) 15-30 GRAMS 15 GRAMS... UD PRN PO 05/19/17 14:00 06/18/17 13:59 Glucose (Glucose Chew Tab) 4-8 Tablets 4 Tabl... UD PRN PO 05/19/17 14:00 06/18/17 13:59 Dextrose (Dextrose 50% 50ML Syringe) 25-50ML OF 50% DW IV FOR... UD PRN IV 05/19/17 14:00 06/18/17 13:59 Glucagon (Glucagon Inj) 1 mg UD PRN SQ 05/19/17 14:00 06/18/17 13:59 Amlodipine Besylate (Norvasc Tab) 5 mg DAILY PO 05/20/17 09:00 06/19/17 08:59 05/23/17 07:43 5 MG Atorvastatin Calcium (Lipitor Tab) 10 mg DAILY PO 05/20/17 09:00 06/19/17 08:59 05/23/17 07:43 10 MG Finasteride (Proscar Tab) 5 mg QAM PO 05/20/17 09:00 06/19/17 08:59 05/23/17 07:43 5 MG Gabapentin (Neurontin Cap) 100 mg DAILY PO 05/20/17 09:00 06/19/17 08:59 05/23/17 07:43 100 MG Tamsulosin HCl (Flomax Cap) 0.4 mg HS PO 05/19/17 21:00 06/18/17 20:59 05/22/17 19:37 0.4 MG Vancomycin HCl (Consult) 1 ea UD PRN N/A 05/19/17 14:45 06/18/17 14:44 Albuterol (Ventolin Hfa Inhaler) 2 puffs QID INH 05/19/17 17:00 06/18/17 16:59 05/23/17 12:27 2 PUFFS Miscellaneous Information (Consult Glycemic Management Pharmacy) 1 ea UD N/A 05/19/17 15:42 06/18/17 15:41 Sodium Chloride 1,000 ml @ 75 mls/hr [id number] IV 05/20/17 11:00 06/19/17 10:59 05/23/17 09:56 75 MLS/HR Mupirocin (Bactroban 2% Oint) 1 appln DAILY EXT 05/20/17 11:00 05/24/17 09:01 05/23/17 07:44 1 APPLN Senna/Docusate Sodium (Senokot S Tab) 1 tab QAM PO 05/21/17 09:00 06/20/17 08:59 05/23/17 07:43 1 TAB Polyethylene (Miralax Powder Packet) 17 gm DAILY PRN PO 05/20/17 11:00 06/19/17 10:59 Bisacodyl (Dulcolax Supp) 10 mg DAILY PRN [place] 05/20/17 11:00 06/19/17 10:59 Heparin Sodium (Porcine) (Heparin 10 Unit/ ml 5 ml Flush) 5 ml PRN PRN FLUSH 05/22/17 23:45 06/21/17 23:44 Insulin Glargine (Lantus Solostar Pen) 18 units HS SC 05/23/17 22:00 06/22/17 21:59 Vancomycin HCl 1500 mg/Sodium Chloride 530 ml @ 200 mls/hr Q24H IV 05/24/17 10:00 06/02/17 09:59
[2017-05-23] MEDS ORDERED: SENN8.6T7 PO ×2 (15:24)
[2017-05-23] MEDS ORDERED: BCTRO EXT ×2 (15:24)
[2017-05-23] MEDS ORDERED: VANC1INJ94 IV ×2 (15:24)
[2017-05-23] MEDS ORDERED: INSDGIPEN SC ×2 (15:24)
[2017-05-23] MEDS ORDERED: NVLGIPEN SC ×2 (15:24)
[2017-05-23 15:30] VITALS: O2SAT 98
--- NOTE | 2017-05-23 15:35 | Discharge Instructions ---
Discharge Instructions Date of Service May 23, 2017. Admission Reason for Admission: Hypoxia, Pneumonia Discharge Discharge Diagnosis / Problem: SEPSIS SECONDARY TO MRSA URINARY TRACT INFECTION , BACTEREMIA Discharge Goals Goal(s): Diagnostic testing, Therapeutic intervention Activity Recommendations Activity Level: Assistance Required Therapies: Physical Therapy, Occupational Therapy . Additional Information Patient informed of condition: Yes Advance Directives: No ([place]) DNR: No (PATIENT IS FULL CODE) Level of Care: Skilled Communicable Disease: No Prognosis: Stable Null Catheter: Yes Instructions / Follow-Up Instructions / Follow-Up MONITOR VANCO LEVEL, CBC, PRP PER ID SPECIALIST INSTRUCTIONS- DR. KING. FOLLOW UP WITH DR. KING IN 1 WEEK. MONITOR NULL CATHETER FOR BLEEDING. FOLLOW UP WITH UROLOGIST DR. FERNANDEZ IN 1- 2 WEEKS. MONITOR CREA CLOSELY. NO NSAIDS, NEPHROTOXINS. FOLLOW UP WITH PRIMARY CARE PHYSICIAN DR. AGNIESZKA ORONA ON Tuesday05/27/17 AT 10: 45AM. PLEASE REFER TO ACCOMPANYING HOSPITAL DISCHARGE SUMMARY FOR FURTHER DETAILS. Current Hospital Diet Patient's current hospital diet: Diabetes Type 2 Diet, AHA Diet (Heart Healthy) Discharge Diet Recommended Diet: AHA Diet (Heart Healthy), Diabetes Type 2 Diet Diet Texture: Dental Soft (bite-sized) Procedures Procedures Performed: CT HEAD, CT CHEST, KUB XRAY Pending Studies Studies pending at discharge: yes List of pending studies: REPEAT CBC, PRP, VANCO LEVEL Physician Orders On Transfer Special Precautions: MONITOR VANCO LEVEL, CBC, PRP PER ID SPECIALIST INSTRUCTIONS- DR. KING. FOLLOW UP WITH DR. KING IN 1 WEEK. MONITOR NULL CATHETER FOR BLEEDING. FOLLOW UP WITH UROLOGIST DR. FERNANDEZ IN 1- 2 WEEKS. MONITOR CREA CLOSELY. NO NSAIDS, NEPHROTOXINS. FOLLOW UP WITH PRIMARY CARE PHYSICIAN DR. AGNIESZKA ORONA ON Tuesday05/27/17 AT 10: 45AM. PLEASE REFER TO ACCOMPANYING HOSPITAL DISCHARGE SUMMARY FOR FURTHER DETAILS. Laboratory Results Hemoglobin A1c Test 05/20/17 05:53 Range/Units Estimated Average Glucose 272 mg/dl Hemoglobin A1c 11.1 H 4.5-5.6 % Medical Emergencies . Who to Call and When: Medical Emergencies: If at any time you feel your situation is an emergency, please call 911 immediately. . Non-Emergent Contact Non-Emergency issues call your: Primary Care Provider, Urologist Call Non-Emergent contact if: you have a fever, your pain is not controlled, your pain is worsening, wound has increased drainage, wound has increased redness, wound has increased pain, you have any medication questions . . "Provider Documentation" section prepared by Rico Castelan. . Core Measure Problem Core Measures: None
--- NOTE | 2017-05-23 15:40 | Discharge Summary ---
Discharge Summary Date of Service May 23, 2017. Discharge Summary Admission Date: May 19, 2017 at 13:48 Discharge Date: May 23, 2017 Principal Diagnosis: Sepsis secondary MRSA UTI, Bacteremia Secondary Diagnoses/Problems: Please refer to hospital course below. Procedures: CHEST ONE VIEW PORTABLE CLINICAL HISTORY: Weakness COMPARISON STUDY: 03/14/2017 FINDINGS: The heart is normal in size. There is aortic tortuosity/ectasia. There is diffuse elevation of the interstitium. Pulmonary vascular congestion is suspected. A bilateral interstitial inflammatory process could appear similar but is felt to be less likely. Clinical and radiographic follow-up is recommended. There are no pleural effusions.[ IMPRESSION: Diffuse elevation of the interstitium. This likely represents pulmonary vascular congestion although a bilateral interstitial inflammatory process could appear similar. Clinical and radiographic follow-up is recommended. CT HEAD WITHOUT CONTRAST (CT) CLINICAL HISTORY: fall, confusion HEAD PAIN COMPARISON STUDY: No previous studies for comparison. TECHNIQUE: Axial CT of the brain is performed from the vertex to the skull base. IV contrast was not administered for this examination. A dose lowering technique was utilized adhering to the principles of ALARA. CT DOSE: 614.27 mGy.cm FINDINGS: No intra or extra-axial mass lesions are visualized. There is no CT evidence of acute cortical infarction. There is no evidence of midline shift. There is no acute hemorrhage. No calvarial fractures are visualized. There are minimal white matter hypodensities likely on a small vessel basis. There is basal ganglial mineralization. There is no evidence of pathologic ventricular dilatation. There is no evidence of acute sinusitis IMPRESSION: No acute intracranial findings KUB HISTORY: History of urinary retention. Concern for possible acute hydronephrosis. R/o hydronephrosis COMPARISON: Renal ultrasound 03/15/2017. FINDINGS: Mildly dilated loops of small bowel are seen within the midabdomen measuring up to 3.2 cm with air also noted throughout the colon. Moderate to extensive volume of formed stool seen throughout the colon. There is no organomegaly. No renal calculi. No ureteral calculi. No pneumoperitoneum or pneumatosis. No fracture. Degenerative changes of the pelvis, hips and spine are noted. Vascular calcifications are seen. Probable phleboliths. IMPRESSION: 1. No definite urolith identified, however renal shadows are obscured by bowel gas. 2. Moderate to extensive volume of formed colonic stool throughout suggests constipation. 3. Mildly dilated loops of small bowel within the midabdomen suggest ileus or low-grade small bowel obstruction. (CHEST) THORAX WITHOUT CT DOSE: 434.51 mGy.cm HISTORY: Dyspnea. Infection. r/o pneumonia TECHNIQUE: Multiaxial CT images of the chest were performed without contrast. A dose lowering technique was utilized adhering to the principles of ALARA. COMPARISON: None. FINDINGS: Mild bibasilar atelectasis. Slight basilar interstitial prominence. No well-defined focal infiltrate. Moderate abscess chronic change and ectasia thoracic aorta. No evidence for aneurysm. IMPRESSION: 1. Mild chronic basilar interstitial and atelectatic change. 2. No focal infiltrate Consultations: Urologist Dr. Fernandez, ID Dr. Arteaga Pending Studies/Follow-Up: Please refer to hospital course below. Medication Reconciliation New Medications: Vancomycin HCl in Sodium Chlor (VANCOMYCIN in NSS) 1 Inj Inj 1500 MG IV Q24H for 9 Days, #9 BAG 0 Refills In ___500 ml NSS Insulin Aspart (Novolog Flexpen) 100 Units/Ml Inj 0 UNITS SC ACHS for 30 Days Correctional Insulin: Novolog Correction per scale ACHS Goal Range: Low 110 mg/dL - High 140 mg/dL Correction Factor: 25 mg/dL/unit Prandial insulin: Per carb ratio of 1 unit per 8 grams CHO consumed Insulin Glargine (Lantus Solostar) 100 Unit/Ml Inj 18 UNITS SC HS for 30 Days Mupirocin (Mupirocin) 66 Appln/22 Gm Oint 1 APPLN EXT DAILY for 2 Days, #2 TUBE 0 Refills Sennosides-Docusate Sodium (Senokot S) 1 Tab Tab 1 TAB PO QAM for 30 Days, #30 TAB 2 Refills Continued Medications: Acetaminophen (Tylenol) 500 Mg Tab 500 MG PO Q4 PRN for Pain MAX 3 GM APAP/24 HRS Albuterol Sulfate (Proair Respiclick) 108 Mcg/Act Aer 2 PUFFS INH QID Amlodipine (Norvasc) 5 Mg Tab 5 MG PO DAILY Atorvastatin (Lipitor) 10 Mg Tab 10 MG PO DAILY, TAB Finasteride (Finasteride) 5 Mg Tab 5 MG PO QAM for 30 Days, #30 TAB Gabapentin (Neurontin) 100 Mg Cap 100 MG PO DAILY, CAP Polyethylene Glycol 3350 (Qc Natura-Lax) 1 Pow Pow 17 GM PO DAILY PRN for Constipation Tamsulosin HCl (Tamsulosin HCl) 0.4 Mg Cap 0.4 MG PO HS for 30 Days, #30 CAP Discontinued Medications: Aspirin Enteric Coated (Ecotrin Or Generic) 81 Mg Tab 81 MG PO QAM, TAB Insulin Glargine (Lantus) 100 Unit/Ml Inj 40 UNITS SC DAILY Insulin Human Regular (Humulin R) 1 Ea Inj 0 SC DM- 70-130=0U 131-180=4U 181-240=8U 241-300=10U 301-350=12U 351-400=16U >400=20U AND CALL Zinc Oxide (Topical) (Desitin) 40 % Oin 1 APPLN TOP HS APPLY TO THE PENIS AT BEDTIME AND NEEDED Admission Information HPI (per Admitting provider): This is a 71yo M who resides at [facility] with a PMH of DM II (uncontrolled) , HTN, HLD, CKD III and urinary retention (with a null) who presents with dysuria, penile pain and generalized weakness. Per retirement and patient, urinary symptoms have been present for a few days. Has had an indwelling null catheter for the past month, which was changed 48 hours ago when the nurses noticed penile discharge. Patient was transferring from his wheelchair to his bed today when he lost his balance and fell backward and hit his head. Was brought to ER for further evaluation. Patient is A&O x4 despite endorsing intermittent confusion. Was found to have an elevated white count of 25,000 and was hypoxic on room air. Now O2 saturation is in the high 90s on 2L NC. Denies using oxygen at [facility]. States that he still has a cough and nasal congestion from a URI last week. Denies any fever, chills, lightheadedness, visual changes, sore throat, CP, palpitations, SOB, abd pain, nausea, vomiting or LE swelling. 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 Marked pain when nurse irrigated null. + pyuria ) Back: normal inspection Extremities/Musculoskelatal: normal inspection, no calf tenderness, no pedal edema, non-tender Neurologic/Psych: no motor/sensory deficits, alert, normal mood/affect, oriented x 3 Skin: normal color, warm/dry Hospital Course This is a 71yo M who resides at [facility] with a PMH of DM II (uncontrolled) , HTN, HLD, CKD III and urinary retention (with a null) who presents with dysuria, penile pain and generalized weakness. Sepsis 2/2 MRSA UTI, Bacteremia - presented hypotensive at 93/63, tachycardic at 110 - BP normotensive, HR improved after IVF resuscitation - Leukocytosis of 25, POC Lactate of 1.09 -- remained afebrile leukocytosis resolved given IV fluids -- management of UTI and possible PNA as noted below UTI, with Bacteremia MRSA Chronic Urinary Retention, Chronic Null, BPH -UA with large amount of leuk esterase, nitrite -Likely 2/2 urinary retention, null in place [facility] -- Nasal MRSA: Positive Urine culture: Staph MRSA Blood Cultures x 2: Staph MRSA -- given Vancomycin IV x 5 Days Null cath replaced by Urologist Dr. Fernandez, ff up with Dr. Fernandez as outpatient in 1-[address] Arteaga consulted, recommend total of 2 weeks IV Vancomycin, will need Vancomycin IV x 9 more days check with Dr. Arteaga re: CBC, PRP, Vanco level monitoring, ff up with Dr. Arteaga in 1-2 weeks monitor PICC line Pneumonia ruled out CHF exacerbation unlikely Hypoxia, Resolved - possible Atelectasis? -- lung sounds clear CT chest: no signs of pneumonia weaned off oxygen ACUTE RENAL FAILURE on CKD III: -Cr elevated to 2.17 (baseline is 1.2) -Likely multifactorial: poor PO intake in addition to possible obstruction 2/2 BPH, urinary retention -Denies NSAID use -- likely from Sepsis, Post Renal- Obstruction -- crea improving 2.17 --> 1.67--> 1.59--> 1.6 given IV fluids -- monitor crea closely avoid NSAIDs, Nephrotoxins Acute Blood Loss Anemia on Chronic anemia: -- Hg down to 7.0 likely from Hematuria -- Hemoccult negative -- s/p 2 units PRBC transfusion Hg improved to 9 -- Anemia panel: iron normal -- monitor Hg DM II: A1c 11.1 - recommendation: * Basal insulin: Lantus 15 units every 24 hours given at bedtime * Correctional Insulin: Novolog Correction per scale ACHS Goal Range: Low 110 mg/dL - High 140 mg/dL Correction Factor: 25 mg/dL/unit * Prandial insulin: Per carb ratio of 1 unit per 8 grams CHO consumed -- monitor HTN: -Normotensive -Cont home amlodipine with hold parameters HLD: -Continue statin DVT Ppx: SCDs only in light of hematuria, anemia Code status: FULL PCP: Dr. Hernandez Dispo: discharge to [facility] ff up with PCP Dr. Ely Hernandez in 1 week. ff up with [facility] in 1 week. ff up with Urologist Dr. Fernandez in 1-2 weeks. Total time spent on discharge = 45 minutes This includes examination of the patient, discharge planning, medication reconciliation, and communication with other providers. Discharge Instructions Discharge Instructions Date of Service May 23, 2017. Admission Reason for Admission: Hypoxia, Pneumonia Discharge Discharge Diagnosis / Problem: SEPSIS SECONDARY TO MRSA URINARY TRACT INFECTION , BACTEREMIA Discharge Goals Goal(s): Diagnostic testing, Therapeutic intervention Activity Recommendations Activity Level: Assistance Required Therapies: Physical Therapy, Occupational Therapy . Additional Information Patient informed of condition: Yes Advance Directives: No (UKNOWN) DNR: No (PATIENT IS FULL CODE) Level of Care: Skilled Communicable Disease: No Prognosis: Stable Null Catheter: Yes Instructions / Follow-Up Instructions / Follow-Up MONITOR VANCO LEVEL, CBC, PRP PER ID SPECIALIST INSTRUCTIONS- DR. ARTEAGA. FOLLOW UP WITH DR. ARTEAGA IN 1 WEEK. MONITOR NULL CATHETER FOR BLEEDING. FOLLOW UP WITH UROLOGIST DR. FERNANDEZ IN 1- 2 WEEKS. MONITOR CREA CLOSELY. NO NSAIDS, NEPHROTOXINS. FOLLOW UP WITH PRIMARY CARE PHYSICIAN DR. AGNIESZKA ORONA ON Tuesday05/27/17 AT 10: 45AM. PLEASE REFER TO ACCOMPANYING HOSPITAL DISCHARGE SUMMARY FOR FURTHER DETAILS. Current Hospital Diet Patient's current hospital diet: Diabetes Type 2 Diet, AHA Diet (Heart Healthy) Discharge Diet Recommended Diet: AHA Diet (Heart Healthy), Diabetes Type 2 Diet Diet Texture: Dental Soft (bite-sized) Procedures Procedures Performed: CT HEAD, CT CHEST, KUB XRAY Pending Studies Studies pending at discharge: yes List of pending studies: REPEAT CBC, PRP, VANCO LEVEL Physician Orders On Transfer Special Precautions: MONITOR VANCO LEVEL, CBC, PRP PER ID SPECIALIST INSTRUCTIONS- DR. ARTEAGA. FOLLOW UP WITH DR. ARTEAGA IN 1 WEEK. MONITOR NULL CATHETER FOR BLEEDING. FOLLOW UP WITH UROLOGIST DR. FERNANDEZ IN 1- 2 WEEKS. MONITOR CREA CLOSELY. NO NSAIDS, NEPHROTOXINS. FOLLOW UP WITH PRIMARY CARE PHYSICIAN DR. AGNIESZKA ORONA ON Tuesday05/27/17 AT 10: 45AM. PLEASE REFER TO ACCOMPANYING HOSPITAL DISCHARGE SUMMARY FOR FURTHER DETAILS. Laboratory Results Hemoglobin A1c Test 05/20/17 05:53 Range/Units Estimated Average Glucose 272 mg/dl Hemoglobin A1c 11.1 H 4.5-5.6 % Medical Emergencies . Who to Call and When: Medical Emergencies: If at any time you feel your situation is an emergency, please call 911 immediately. . Non-Emergent Contact Non-Emergency issues call your: Primary Care Provider, Urologist Call Non-Emergent contact if: you have a fever, your pain is not controlled, your pain is worsening, wound has increased drainage, wound has increased redness, wound has increased pain, you have any medication questions . . "Provider Documentation" section prepared by Rico Castelan. . Core Measure Problem Core Measures: None
[2017-05-23 16:12] VITALS: BP 129/76; PULSE 81; TEMP 36.7; O2SAT 98
[2017-05-23 16:15] VITALS: BP 129/76; PULSE 81; TEMP 36.7; O2SAT 98
[2017-05-23 17:18] VITALS: BP 129/76; PULSE 81; TEMP 36.7; O2SAT 98
[2017-05-23] MEDS ORDERED: INSULIN GLARGINE SOLOSTAR 100 UNITS/ML 3 ML PEN SC SCH (22:00)
[2017-05-24] MEDS ORDERED: VANCOMYCIN INJ 1,500 MG in SODIUM CHLORIDE 0.9% 500ML 500 ML IV SCH (10:00)
== END 2017-05-23 18:13 | DRG 872 ==
LOC: EDBD 11:00 → C.EDC 11:01 → C.2E 13:48 → ENRESERV 14:08 → C.MS4W 05-21 16:21 → ENRESERV 05-21 17:11
PROVIDERS: ADMIT Hospitalist; ATTEND Internal Medicine
DX: A41.9 Sepsis, unspecified organism (principal); N39.0 Urinary tract infection, site not specified; N40.0 Benign prostatic hyperplasia without lower urinary tract symptoms; I12.9 Hypertensive chronic kidney disease with stage 1 through stage 4 chronic kidney disease, or unspecified chronic kidney disease; N18.3 Chronic kidney disease, stage 3 (moderate); E11.9 Type 2 diabetes mellitus without complications; K21.9 Gastro-esophageal reflux disease without esophagitis; A49.01 Methicillin susceptible Staphylococcus aureus infection, unspecified site; D64.9 Anemia, unspecified; E78.5 Hyperlipidemia, unspecified; Z87.891 Personal history of nicotine dependence; Z79.82 Long term (current) use of aspirin; Z83.3 Family history of diabetes mellitus; Z82.49 Family history of ischemic heart disease and other diseases of the circulatory system

== ENCOUNTER → 2017-05-24 | Outpatient (CLI) | payer OTHER ==
[~2017-05-24] MED LIST changes: +ACET-1256 PO; +ALBU18002 INH; +AMLO-110 PO; +BCTRO EXT; +INSDGI SC; +INSHNI SC; +INSPMPRGR SC; +NVLGIPEN SC; +POLY1POW PO; +SENN8.6T7 PO; +VANC1INJ94 IV; +ZINC40OI13 TOP
[2017-05-24 10:00] LABS: BASO % 0.3 %; BASO ABS # 0.03 K/uL (0-0.2); COMPLETE YES; EOS % 3.7 %; HEMATOCRIT 32.4 % (42-52); IG% 0.5 %; LYMPH % 19.3 %; MEAN CELL VOLUME 86.6 fL (80-100); MEAN CORPUSCULAR HGB CONC 31.2 g/dl (32-36); NEUT % 66.2 %; PLATELET COUNT 287 K/uL (130-400); RED BLOOD COUNT 3.74 M/uL (4.7-6.1); WHITE BLOOD COUNT 9.34 K/uL (4.8-10.8)
[2017-05-24 10:10] LABS: ALT/SGPT 45 U/L (12-78); BLOOD UREA NITROGEN 21 mg/dl (7-18); BUN/CREATININE RATIO 13.3 (10-20); CALCIUM 8.8 mg/dl (8.5-10.1); CARBON DIOXIDE 25 mmol/L (21-32); CHLORIDE 108 mmol/L (98-107); CREATININE 1.59 mg/dl (0.60-1.40); GLUCOSE 135 mg/dl (70-99); POTASSIUM 4.3 mmol/L (3.5-5.1); SODIUM 142 mmol/L (136-145)
[2017-05-24 10:13] LABS: ALB/GLOB RATIO 0.6 (0.9-2); ALKALINE PHOSPHATASE 98 U/L (45-117); AST/SGOT 41 U/L (15-37)
== END ==
LOC: C.LABUPNIT 09:15
PROVIDERS: ATTEND Nurse Practitioner Family
DX: J18.8 Other pneumonia, unspecified organism (principal); E11.8 Type 2 diabetes mellitus with unspecified complications

== ENCOUNTER → 2017-05-25 | Outpatient (CLI) | payer OTHER | LOC: C.LABUPNIT 12:01 | PROVIDERS: ATTEND Nurse Practitioner Family | DX: C18.8 Malignant neoplasm of overlapping sites of colon (principal) ==

== ENCOUNTER → 2017-06-01 | Outpatient (CLI) | payer OTHER ==
[~2017-06-01] MED LIST changes: -ASPI81TA21 PO; -INSDGI SC; -INSHNI SC; -INSPMPRGR SC; -LISI-725 PO; -ZINC40OI13 TOP
[2017-06-01 08:26] LABS: HEMATOCRIT 31.6 % (42-52)
[2017-06-01 08:33] LABS: BLOOD UREA NITROGEN 27 mg/dl (7-18); BUN/CREATININE RATIO 15.8 (10-20); CALCIUM 8.8 mg/dl (8.5-10.1); CARBON DIOXIDE 28 mmol/L (21-32); CHLORIDE 105 mmol/L (98-107); CREATININE 1.72 mg/dl (0.60-1.40); GLUCOSE 112 mg/dl (70-99); POTASSIUM 4.2 mmol/L (3.5-5.1); SODIUM 139 mmol/L (136-145)
== END ==
LOC: C.LABUPNIT 08:13
PROVIDERS: ATTEND Nurse Practitioner Family
DX: D64.9 Anemia, unspecified (principal); Z51.81 Encounter for therapeutic drug level monitoring

== ENCOUNTER → 2017-06-06 | Outpatient (CLI) | payer OTHER ==
[2017-06-06 08:38] LABS: BASO % 0.8 %; BASO ABS # 0.05 K/uL (0-0.2); COMPLETE YES; EOS % 6.2 %; HEMATOCRIT 32.4 % (42-52); IG% 0.2 %; LYMPH ABS # 1.88 K/uL (1.2-3.4); MEAN CELL VOLUME 87.6 fL (80-100); MEAN CORPUSCULAR HEMOGLOBIN 27.6 pg (25-34); MEAN CORPUSCULAR HGB CONC 31.5 g/dl (32-36); MONO % 12.8 %; PLATELET COUNT 310 K/uL (130-400); WHITE BLOOD COUNT 6.49 K/uL (4.8-10.8)
[2017-06-06 08:53] LABS: BLOOD UREA NITROGEN 27 mg/dl (7-18); BUN/CREATININE RATIO 15.6 (10-20); CALCIUM 8.9 mg/dl (8.5-10.1); CARBON DIOXIDE 28 mmol/L (21-32); CHLORIDE 105 mmol/L (98-107); CREATININE 1.76 mg/dl (0.60-1.40); GLUCOSE 124 mg/dl (70-99); POTASSIUM 4.3 mmol/L (3.5-5.1); SODIUM 140 mmol/L (136-145)
== END ==
LOC: C.LABUPNIT 07:40
PROVIDERS: ATTEND Nurse Practitioner Family
DX: D64.9 Anemia, unspecified (principal); A41.02 Sepsis due to Methicillin resistant Staphylococcus aureus

== ENCOUNTER → 2017-06-15 | Outpatient (CLI) | payer OTHER ==
[2017-06-15 08:53] LABS: MEAN CELL VOLUME 86.6 fL (80-100); MEAN CORPUSCULAR HEMOGLOBIN 27.4 pg (25-34); MEAN CORPUSCULAR HGB CONC 31.6 g/dl (32-36); MEAN PLATELET VOLUME 10.1 fL (7.4-10.4); PLATELET COUNT 279 K/uL (130-400); RED BLOOD COUNT 3.58 M/uL (4.7-6.1); WHITE BLOOD COUNT 8.61 K/uL (4.8-10.8)
[2017-06-15 09:00] LABS: BLOOD UREA NITROGEN 36 mg/dl (7-18); BUN/CREATININE RATIO 17.3 (10-20); CALCIUM 8.5 mg/dl (8.5-10.1); CARBON DIOXIDE 25 mmol/L (21-32); CHLORIDE 104 mmol/L (98-107); CREATININE 2.05 mg/dl (0.60-1.40); GLUCOSE 171 mg/dl (70-99); POTASSIUM 4.2 mmol/L (3.5-5.1); SODIUM 137 mmol/L (136-145)
[2017-06-15 09:27] LABS: ESTIMATED AVERAGE GLUCOSE 223 mg/dl; HA1C FLAG Normal (Normal)
== END | disposition home or self-care (01) ==
LOC: C.LABBC 08:37
PROVIDERS: ATTEND Nurse Practitioner Adult Health
DX: E11.9 Type 2 diabetes mellitus without complications (principal); N40.0 Benign prostatic hyperplasia without lower urinary tract symptoms; D64.9 Anemia, unspecified; E78.5 Hyperlipidemia, unspecified

== ENCOUNTER → 2017-07-22 | Outpatient (CLI) | payer OTHER ==
[2017-07-25 12:45] LABS: FECAL OCCULT BLOOD #1 NEGATIVE (NEGATIVE); FECAL OCCULT BLOOD #2 NEGATIVE (NEGATIVE); FECAL OCCULT BLOOD #3 NEGATIVE (NEGATIVE)
== END | disposition home or self-care (01) ==
LOC: C.LABSPEC 12:38
PROVIDERS: ATTEND Internal Medicine
DX: D64.9 Anemia, unspecified (principal)

== ENCOUNTER → 2017-07-27 | Outpatient (CLI) | payer OTHER ==
[2017-07-27 10:14] LABS: HEMATOCRIT 32.7 % (42-52); HEMOGLOBIN 10.2 g/dL (14.0-18.0); MEAN CELL VOLUME 86.5 fL (80-100); MEAN CORPUSCULAR HGB CONC 31.2 g/dl (32-36); MEAN PLATELET VOLUME 10.1 fL (7.4-10.4); PLATELET COUNT 277 K/uL (130-400); RED CELL DISTRIBUTION WIDTH CV 15.1 % (11.5-14.5); RED CELL DISTRIBUTION WIDTH SD 47.9 fL (36.4-46.3)
--- NOTE | 2017-07-28 13:10 | CODING QUERY NO DIAGNOSIS ---
: 1945 TREATMENT RENDERED WITHOUT A DIAGNOSIS To promote full compliance with coding requirements relating to patient care, physician participation is requested in all cases of medical billing coder uncertainty. Please assist us with providing a diagnosis/symptom for the test(s) below: A diagnosis/symptom was not documented on your Order. A valid diagnosis/symptom is required to bill all insurances. Please remember that we are unable to code a diagnosis of rule out, probable, possible, questionable, or suspected. Tests that require a diagnosis: DOS: 07/27/17 * CBC W/O DIFFERENTIAL DIAGNOSIS: * IRON DIAGNOSIS: * TOTAL IRON BINDING CAPACITY DIAGNOSIS: Provider Signature: Date: Thank you Casi Ryan Health Information Management Once completed, please kindly fax back to [phone] For questions please call [phone]
== END | disposition home or self-care (01) ==
LOC: C.LABSPEC 09:10
PROVIDERS: ATTEND Internal Medicine
DX: D64.9 Anemia, unspecified (principal)

== ENCOUNTER → 2017-09-22 | Outpatient (CLI) | payer OTHER ==
[~2017-09-22] MED LIST changes: -BCTRO EXT; +CIPROFLOXACIN OPL; +FINA5TAB PO; -FLM4 PO; +INSDGI SC; -INSDGIPEN SC; +INSU1INJ2 INJ; -NVLGIPEN SC; -POLY1POW PO; -PRS5 PO; +SENN-63 PO; -SENN8.6T7 PO; +TAMS0.4C38 PO; -VANC1INJ94 IV; +ZINC40OI13 TOP
--- NOTE | 2017-10-04 09:25 | CODING QUERY NO DIAGNOSIS ---
: 1945 TREATMENT RENDERED WITHOUT A DIAGNOSIS To promote full compliance with coding requirements relating to patient care, physician participation is requested in all cases of scrap shear operator uncertainty. Please assist us with providing a diagnosis/symptom for the test(s) below: A diagnosis/symptom was not documented on your Order. A valid diagnosis/symptom is required to bill all insurances. Please remember that we are unable to code a diagnosis of rule out, probable, possible, questionable, or suspected. Tests that require a diagnosis: DOS: 09/22/17 * UA CLEAN CATCH DIAGNOSIS: * URINE CULTURE CLEAN CATCH DIAGNOSIS: Provider Signature: Date: Thank you Casi Ryan Health Information Management Once completed, please kindly fax back to [phone] For questions please call [phone]
== END | disposition home or self-care (01) ==
LOC: C.LABSPEC 12:04
PROVIDERS: ATTEND Nurse Practitioner Adult Health
DX: N39.0 Urinary tract infection, site not specified (principal)

== ENCOUNTER → 2017-10-05 | Outpatient (CLI) | payer OTHER ==
[2017-10-05 09:58] LABS: HEMATOCRIT 30.5 % (42-52); HEMOGLOBIN 9.6 g/dL (14.0-18.0); MEAN CELL VOLUME 86.9 fL (80-100); MEAN CORPUSCULAR HEMOGLOBIN 27.4 pg (25-34); MEAN CORPUSCULAR HGB CONC 31.5 g/dl (32-36); MEAN PLATELET VOLUME 9.7 fL (7.4-10.4); PLATELET COUNT 246 K/uL (130-400); RED CELL DISTRIBUTION WIDTH CV 14.7 % (11.5-14.5); RED CELL DISTRIBUTION WIDTH SD 45.6 fL (36.4-46.3); WHITE BLOOD COUNT 9.04 K/uL (4.8-10.8)
[2017-10-05 10:15] LABS: BLOOD UREA NITROGEN 43 mg/dl (7-18); CALCIUM 9.3 mg/dl (8.5-10.1); CARBON DIOXIDE 24 mmol/L (21-32); CREATININE 1.91 mg/dl (0.60-1.40); GLUCOSE 69 mg/dl (70-99); POTASSIUM 4.3 mmol/L (3.5-5.1); SODIUM 144 mmol/L (136-145)
[2017-10-05 10:41] LABS: HEMOGLOBIN A1C 8.5 % (4.5-5.6)
== END | disposition home or self-care (01) ==
LOC: C.LABSPEC 09:39
PROVIDERS: ATTEND Nurse Practitioner Adult Health
DX: I12.9 Hypertensive chronic kidney disease with stage 1 through stage 4 chronic kidney disease, or unspecified chronic kidney disease (principal); E11.22 Type 2 diabetes mellitus with diabetic chronic kidney disease; N18.9 Chronic kidney disease, unspecified

== ENCOUNTER → 2017-10-05 | Day surgery (SDC) | payer OTHER ==
[2017-09-07 09:57] VITALS: BMI 22.0
--- NOTE | 2017-09-07 11:21 | PAT Medication Instructions ---
Service Date Sep 07, 2017. Current Home Medication List Acetaminophen (Tylenol), 500 MG PO Q4 PRN for Pain Albuterol Sulfate (Proair Respiclick), 2 PUFFS INH QID Amlodipine (Norvasc), 5 MG PO DAILY Atorvastatin (Lipitor), 10 MG PO DAILY Finasteride (Proscar), 5 MG PO QAM Gabapentin (Neurontin), 100 MG PO DAILY Insulin Aspart (Novolog Penfill), INJ TIDM Insulin Glargine (Lantus), 32 UNITS SC QPM Sennosides (Senokot), 1 TAB PO QAM Tamsulosin Hcl (Flomax), 0.4 MG PO QPM Zinc Oxide (Topical) (Desitin), 1 DOSE TOP PRN [Ciprofloxacin 0.03%], 1 DROP OPL QID PRN for D Medication Instructions For Your Scheduled Surgery - Hold the following medications 24 hours prior to surgery: Zinc Oxide (Topical) (Desitin), 1 DOSE TOP PRN - Hold the following medications the morning of surgery: Insulin Aspart (Novolog Penfill), INJ TIDM Sennosides (Senokot), 1 TAB PO QAM - The following medications are OK to take the morning of surgery with a sip of water: Acetaminophen (Tylenol), 500 MG PO Q4 PRN for Pain (if needed, can be taken up to four hours before surgery) Albuterol Sulfate (Proair Respiclick), 2 PUFFS INH QID (Bring this with you to the hospital) Amlodipine (Norvasc), 5 MG PO DAILY Atorvastatin (Lipitor), 10 MG PO DAILY Finasteride (Proscar), 5 MG PO QAM Gabapentin (Neurontin), 100 MG PO DAILY [Ciprofloxacin 0.03%], 1 DROP OPL QID PRN for D (if needed) - Take the following medications as scheduled the night before surgery: Acetaminophen (Tylenol), 500 MG PO Q4 PRN for Pain (if needed) Insulin Aspart (Novolog Penfill), INJ TIDM Insulin Glargine (Lantus), 32 UNITS SC QPM [Ciprofloxacin 0.03%], 1 DROP OPL QID PRN for D (if needed) Tamsulosin Hcl (Flomax), 0.4 MG PO QPM If you have any questions please call us at [phone] or [phone] or [phone]
[2017-09-15 09:49] VITALS: Ht 180.3 cm; Wt 73.6 kg
[~2017-10-05] VITALS: Ht 180.3 cm; Wt 73.6 kg
[~2017-10-05] MED LIST changes: +500ML BSS 0.3ML EPI 1:1000PF IRRIG ONE; +ACETAMINOPHEN 325 MG TAB PO PRN; +AMVISC PLUS 0.8ML SYRINGE INT OCU ONE; +ATROPINE SULFATE 0.1 MG/ML 5ML SYR IV PRN; +ATROPINE SULFATE 1% OP SOLN 2 ML BTL ONE; +AcetylCHOLine CHL OP SOL 1:100 2 ML BTL ONE; +BRIMONIDINE TART 0.2% OP SOLN PER DROP CHARGE ONE; +BRIMONIDINE TARTRATE 0.2% 5ML ONE; +BSS FLUSH ONE; +CYCLOPENTOLATE HCL 1% OP SOLN PER DROP CHARGE OPL SCH; +ENDOCOAT 0.85ML SYRINGE INT OCU ONE; +EpHEDrine SULFATE INJ 50 MG/ML AMP IV PRN; +EpINEphrine INJ 1MG/ML AMP 1 MG/ML AMP ONE; +FENTANYL CITRATE INJ 50 MCG/1 ML 2 ML VIAL IV PRN; +FENTANYL CITRATE INJ 50 MCG/1 ML 2 ML VIAL ONE; +HEALON 10MG/ML 0.85 ML SYR INSTIL ONE; +KETOROLAC 0.5% OP SOLN PER DROP CHARGE OPL SCH; +LACTATED RINGER'S 1000ML 500 ML IV SCH; +LIDOCAINE 4% OP SOLN DROP CHARGE ONE; +LIDOCAINE 4% OP SOLN DROP CHARGE OPL SCH; +LIDOCAINE HCL 1% MPF 2 ML VIAL ONE; +MIDAZOLAM HCL 1 MG/ML 2ML VIAL ONE; +MOXIFLOXACIN OPH SOLN PER DROP CHARGE ONE; +MOXIFLOXACIN OPH SOLN PER DROP CHARGE OPL SCH; +PHENYLEPHRINE HCL 2.5% OP SOLN PER DROP CHARGE OPL SCH; +POVIDONE-IODINE OP SOLN 30 ML BTL ONE; +PROPARACAINE 0.5% OP SOLN PER DROP CHARGE OPL SCH; +TETRACAINE HCL (OPHTH) 60 DROPS/4 ML BTL OP ONE; +TOBRAMYCIN/DEXAMETHASONE OPH OINT PER APPLN CHARGE ONE; +TROPICAMIDE 1% OP SOLN PER DROP CHARGE OPL SCH; +TRYPAN BLUE 0.06% FOR SURGI CENTER ONLY OP ONE
[2017-10-05] MEDS: PHENYLEPHRINE HCL 2.5% OP SOLN PER DROP CHARGE OPL SCH ×2 (09:33→09:38)
[2017-10-05] MEDS: TROPICAMIDE 1% OP SOLN PER DROP CHARGE OPL SCH ×2 (09:34→09:39)
[2017-10-05] MEDS: CYCLOPENTOLATE HCL 1% OP SOLN PER DROP CHARGE OPL SCH ×2 (09:35→09:40)
[2017-10-05] MEDS: KETOROLAC 0.5% OP SOLN PER DROP CHARGE OPL SCH ×2 (09:36→09:41)
[2017-10-05] MEDS: MOXIFLOXACIN OPH SOLN PER DROP CHARGE OPL SCH ×2 (09:37→09:47)
--- NOTE | 2017-10-05 10:02 | History & Physical Bridge - SC ---
H&P Re-Evaluation Bridge Note: I have examined the patient, reviewed the History & Physical and in the interval since the performance of the History & Physical I have noted the following changes of clinical significance: No changes noted
--- NOTE | 2017-10-05 11:40 | [facility] Post Operative Brief Note ---
Immediate Operative Summary Operative Date Oct 05, 2017. Pre-Operative Diagnosis Cataract Left Eye, Left Eye Endothelial Corneal Dystrophy Post-Operative Diagnosis same Procedure(s) Performed Phaco with IOL OS/ DSAEK OS Surgeon Dr. Jorge Luis Root Net Applications Developer Surgeon(s) 0 Estimated Blood Loss 0 Findings Consistent with Post-Op Diagnosis Specimens C&S Donor Corneal Rim Drains None Anesthesia Type MAC Complication(s) none Disposition Accompanied Pt To Recovery: no Disposition: Recovery Room / PACU
--- NOTE | 2017-10-05 11:43 | Discharge Instructions-SurgCtr ---
Discharge Instructions Date of Service Oct 05, 2017. 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 Post Anesthesia Instructions: If you have had General Anesthesia or IV Sedation: * Do not drive today. * Resume driving when surgeon permits. * Do not make important decisions or sign legal documents today. * Call surgeon for: 1. Temperature elevations greater than 101 degrees F. 2. Uncontrollable pain. 3. Excessive bleeding. 4. Persistent nausea and vomiting. 5. Medication intolerance (nausea, vomiting or rash). * For nausea and vomiting use only clear liquids such as: tea, soda, bouillon until nausea subsides, then gradually increase diet as tolerated. * If you have any concerns or questions, call your surgeon's office. If physician is unavailable and it is an emergency, call 911 or go to the nearest emergency room. . Instructions / Follow-Up Instructions / Follow-Up ACTIVITY RECOMMENDATIONS: * Bedrest- Eyes to the ceiling, except for meals and bathroom MEDICATIONS: Resume previous medications unless instructed otherwise by your surgeon. Eye drops (today and tomorrow): Cipro - one drop in operative eye every 2 hours while awake Prednisolone 1% - one drop in operative eye every 2 hours while awake SPECIAL CARE INSTRUCTIONS: * If any problems or concerns, please call Dr. Root's office at . * Keep plastic shield taped over eye to sleep at night. * Keep plastic shield taped over eye except to administer eye drops. * Keep plastic shield on until office visit the following day. FOLLOW UP VISIT: Follow-up with Dr. Root in the [place] office as scheduled. If not already scheduled, please call the office at . Diet Recommendations Home Diet: resume previous diet Procedures Procedures Performed: Phaco with IOL OS/ DSAEK OS Pending Studies Studies pending at discharge: yes List of pending studies: cornea donor rim culture Medical Emergencies . Who to Call and When: Medical Emergencies: If at any time you feel your situation is an emergency, please call 911 immediately. . Non-Emergent Contact Non-Emergency issues call your: Curriculum Counselor . . "Provider Documentation" section prepared by Hammad Root. .
[2017-10-05 11:45] VITALS: TEMP 36.3
--- NOTE | 2017-10-05 12:05 | Anesthesia Progress Nt - [facility] ---
Anesthesia Post Op Note Date & Time Oct 05, 2017 at 12:05 Vital Signs Pain Intensity: 0 Vital Signs Past 12 Hours Date Time Temp Pulse Resp B/P (MAP) Pulse Ox O2 Delivery O2 Flow Rate FiO2 10/05/17 11:45 36.3 86 16 129/76 (93) 95 Room Air 10/05/17 09:27 36.5 87 20 122/73 (89) 96 Room Air Notes Mental Status: alert / awake / arousable, participated in evaluation Pt Amnestic to Procedure: Yes Nausea / Vomiting: adequately controlled Pain: adequately controlled Airway Patency, RR, SpO2: stable & adequate BP & HR: stable & adequate Hydration State: stable & adequate Anesthetic Complications: no major complications apparent
--- NOTE | 2017-10-05 12:36 | OPERATIVE REPORT ---
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 POSTOPERATIVE DIAGNOSIS: Same. PROCEDURE PERFORMED: Phacoemulsification cataract extraction with intraocular lens placement and Descemet stripping automated endothelial keratoplasty left eye. SURGEON: Dr. Root. COMPLICATIONS: None. ESTIMATED BLOOD LOSS: None. ANESTHESIA: Local with sedation. DESCRIPTION OF PROCEDURE: After informed consent was obtained in the holding area, attention was first turned to the donor cornea. It was placed endothelial side up on the Eloina trephine and trephinated with an 8.25 mm Eloina trephine by myself. It was then covered in Optisol and set aside. The patient was then brought back to the operating room where cardiac monitoring leads and oxygen by nasal cannula was administered by anesthesia. Gentle IV sedation was given. The patient's left eye was prepped and draped in usual sterile fashion. Wire lid speculum was placed in the left eye and the operating microscope swung into position. Using 0.12 forceps and a supersharp blade, a paracentesis port was made at the 5 o'clock position of patient's left eye. 1% nonpreserved lidocaine was injected into the anterior chamber for anesthesia. A 2.0 mm keratome blade was then used to make a shelved clear cornea incision at the 3 o'clock position of the patient's left eye. The anterior chamber was then filled with Amvisc and a curvilinear capsulorrhexis was performed with the cystotome and Utrata forceps. BSS and hydrodissection cannula was then used to hydrodissect the lens nucleus away from the capsular bag. Phacoemulsification was then begun through this dense cataract. Extensive phacoemulsification was done in order to remove the cataract. The iris was very floppy and EndoCoat was injected into the eye numerous times to help keep the iris back. Flomax mix was also injected into the eye towards the beginning of phacoemulsification aid with pupillary dilation in this floppy iris patient. Once the cataract was removed the irrigation-aspiration handpiece was used to remove residual epinuclear and cortical material. The eye was then filled with Healon. The main incision enlarged to 4 mm and a Bausch and Lomb MX60 22.5 Diopter intraocular lens was injected into the capsular bag. The previously used Eloina trephine was then inked and used to hammad the surface of the host cornea. Reverse Sinskey hook was then used to score and strip Descemet's membrane from within the marked area. The Descemet stripper was used to remove the Descemet's membrane from within the eye. The stromal trapeze artist was then used to roughen the stromal Rustam bed around the periphery. The irrigation-aspiration handpiece was then used to remove the viscoelastic material from the eye. The donor cornea was then placed endothelial side up on the EndoSerter and a drop of Healon was placed on it. It was then retracted into the EndoSerter. The graft was then injected into the anterior chamber using the EndoSerter. The graft was unfolded underneath BSS and air and a single 10-0 nylon suture was placed through the main incision. Complete air fill of the eye was achieved and held for 15 minutes during which time the cornea was coated in Healon. After the first 15 minutes the Healon was irrigated off the cornea and a [place] [facility] roller was used to milk the corneal interface. The eye was recoated in Healon and another 10 minutes elapsed after which time there was a partial air fluid exchange done leaving behind a 75% air fill of the anterior chamber. ReSure sealant was placed over the paracentesis at 5 o'clock as well as a primary incision at 3 o'clock. The wire lid speculum was then removed from the eye. Vigamox and TobraDex ointment were placed on the eye and the eye was shielded. The patient tolerated the procedure well and was taken to recovery area to lay flat for 2 hours prior to being discharged back to the halfway. I attest to the content of the Intraoperative Record and any orders documented therein. Any exception s are noted below.
[2017-10-05 14:15] VITALS: BP 118/72; PULSE 89; O2SAT 96
== END | disposition home or self-care (01) ==
LOC: X.SURG 09:03
PROVIDERS: ATTEND Ophthalmology
DX: H18.51 Endothelial corneal dystrophy (principal); H25.12 Age-related nuclear cataract, left eye; I10 Essential (primary) hypertension; E11.9 Type 2 diabetes mellitus without complications; Z87.891 Personal history of nicotine dependence

== ENCOUNTER → 2017-11-16 | Outpatient (CLI) | payer OTHER ==
[~2017-11-16] MED LIST changes: -500ML BSS 0.3ML EPI 1:1000PF IRRIG ONE; -ACETAMINOPHEN 325 MG TAB PO PRN; -AMVISC PLUS 0.8ML SYRINGE INT OCU ONE; -ATROPINE SULFATE 0.1 MG/ML 5ML SYR IV PRN; -ATROPINE SULFATE 1% OP SOLN 2 ML BTL ONE; -AcetylCHOLine CHL OP SOL 1:100 2 ML BTL ONE; -BRIMONIDINE TART 0.2% OP SOLN PER DROP CHARGE ONE; -BRIMONIDINE TARTRATE 0.2% 5ML ONE; -BSS FLUSH ONE; -CYCLOPENTOLATE HCL 1% OP SOLN PER DROP CHARGE OPL SCH; -ENDOCOAT 0.85ML SYRINGE INT OCU ONE; -EpHEDrine SULFATE INJ 50 MG/ML AMP IV PRN; -EpINEphrine INJ 1MG/ML AMP 1 MG/ML AMP ONE; -FENTANYL CITRATE INJ 50 MCG/1 ML 2 ML VIAL IV PRN; -FENTANYL CITRATE INJ 50 MCG/1 ML 2 ML VIAL ONE; -HEALON 10MG/ML 0.85 ML SYR INSTIL ONE; -KETOROLAC 0.5% OP SOLN PER DROP CHARGE OPL SCH; -LACTATED RINGER'S 1000ML 500 ML IV SCH; -LIDOCAINE 4% OP SOLN DROP CHARGE ONE; -LIDOCAINE 4% OP SOLN DROP CHARGE OPL SCH; -LIDOCAINE HCL 1% MPF 2 ML VIAL ONE; -MIDAZOLAM HCL 1 MG/ML 2ML VIAL ONE; -MOXIFLOXACIN OPH SOLN PER DROP CHARGE ONE; -MOXIFLOXACIN OPH SOLN PER DROP CHARGE OPL SCH; -PHENYLEPHRINE HCL 2.5% OP SOLN PER DROP CHARGE OPL SCH; -POVIDONE-IODINE OP SOLN 30 ML BTL ONE; -PROPARACAINE 0.5% OP SOLN PER DROP CHARGE OPL SCH; -TETRACAINE HCL (OPHTH) 60 DROPS/4 ML BTL OP ONE; -TOBRAMYCIN/DEXAMETHASONE OPH OINT PER APPLN CHARGE ONE; -TROPICAMIDE 1% OP SOLN PER DROP CHARGE OPL SCH; -TRYPAN BLUE 0.06% FOR SURGI CENTER ONLY OP ONE
== END | disposition home or self-care (01) ==
LOC: C.LABSPEC 16:41
PROVIDERS: ATTEND Urology
DX: R82.90 Unspecified abnormal findings in urine (principal)